=== PATIENT | male | born 1950 | race Caucasian/White ===

== ENCOUNTER → 2017-09-27 09:36 | Outpatient (CLI) | payer MEDICARE, MEDICAID, SELFPAY ==
[2017-09-27 09:57] LABS: Basophils % 0.6 % (0.1-2.0); Eosinophils # 0.3 K/mm3 (0.0-0.4); Eosinophils % 3.7 % (0.1-12.0); Hematocrit 39.6 % (42.0-52.0); Hemoglobin 12.7 g/dL (14.1-18.0); Lymphocytes # 2.5 K/mm3 (0.7-4.5); Lymphocytes % 32.8 K/mm3 (10-50); Mean Corpuscular HGB Conc 32.1 g/dL (31.8-35.4); Mean Corpuscular Hemoglobin 29.6 pg (27.0-31.2); Mean Corpuscular Volume 92.1 fl (80-94); Mean Platelet Volume 7.5 fl (7.4-10.4); Monocytes # 0.4 K/mm3 (0.1-1.0); Monocytes % 4.7 % (1.7-9.3); Neutrophils # 4.4 K/mm3 (1.8-7.8); Neutrophils % 58.1 % (37.0-80.0); Platelet Count 299 K/mm3 (142-424); White Blood Count 7.6 K/mm3 (4.8-10.8)
[2017-09-27 10:31] LABS: Hemoglobin A1C 6.4 % (0.0-7.0)
[2017-09-27 11:35] LABS: Alanine Aminotransferase 36 U/L (12-78); Albumin Level 3.7 gm/dL (3.4-5.0); Albumin/Globulin Ratio 1.1 (1.1-1.8); Alkaline Phosphatase 87 U/L (46-116); Anion Gap 13.5 mEq/L (5-15); Aspartate Amino Transferase 35 U/L (15-37); Bilirubin,Total 0.9 mg/dL (0.2-1.0); Blood Urea Nitrogen 13 mg/dL (7-18); Calcium 8.8 mg/dL (8.5-10.1); Carbon Dioxide 31 mmol/L (21.0-32.0); Chloride 105 mmol/L (98-107); Chol/HDL Ratio 3.8 (1-3.5); Cholesterol 133 mg/dL (140-200); Creatinine,Serum 0.75 mg/dL (0.70-1.30); Estimated Glomerular Filt Rate 105 ml/min (>60); GFR (African American) 126 ML/MIN (>60); Globulin 3.4 gm/dl (1.3-3.2); Glucose 138 mg/dL (74-106); HDL Cholesterol 35 mg/dL (27-67); LDL Cholesterol 62 mg/dL (0-130); Potassium 4.5 mmoL/L (3.5-5.1); Prostate Specific Ag Screen 0.2 ng/mL (0.0-4.0); Sodium 145 mmol/L (136-145); Total Protein,Serum 7.1 gm/dL (6.4-8.2); Triglycerides 179 mg/dL (30-200); VLDL Cholesterol 36 mg/dL (0-40)
== END ==
PROVIDERS: PCP Internal Medicine; Visit Provider Internal Medicine
DX: E11.59 Type 2 diabetes mellitus with other circulatory complications (principal); I25.10 Atherosclerotic heart disease of native coronary artery without angina pectoris; N40.1 Benign prostatic hyperplasia with lower urinary tract symptoms; Z12.5 Encounter for screening for malignant neoplasm of prostate; I10 Essential (primary) hypertension
CPT/HCPCS: 36415; 80053; 80061; 83036; 85025; G0103

== ENCOUNTER 2017-11-03 14:59 | Emergency (ER) | payer MEDICARE, MEDICAID, SELFPAY ==
[2017-11-03 15:21] VITALS: BP 145/82; PULSE 63; RESP 18; TEMP 36.9; O2SAT 95; BMI 35.5
[2017-11-03 15:28] VITALS: BP 145/82; PULSE 63; RESP 18; TEMP 36.9
--- NOTE | 2017-11-03 15:32 | HMH.EDUTC ---
[facility] [place]: Epistaxis Disposition: Home, Self-Care Condition on Discharge: Good Additional Instructions: Go straight to Dr Caruso office for evaluation and treatment Return if needed Follow up with family doctor as advised Follow Dr Aj orders Straight to ER if you began bleeding and not able to get it started Referrals: Narciso Maharaj [Primary Care Provider] - 3 days Rafat Caruso MD [Staff Physician] - 11/03/17 3:45 pm Time of Disposition: 15:36 Medical Decision Making - Medical Records Medical records reviewed: Yes: I reviewed the patient's medical records. - Jose Rafael Inquiry Pt receiving controlled substance: No Jose Rafael was queried for this patient: No Vital Signs: 11/03/17 15:21 11/03/17 15:28 Temperature 98.4 F 98.4 F Temperature Source Temporal Artery Scan Pulse Rate 63 Pulse Rate [Right] 63 Respiratory Rate 18 18 Blood Pressure 145/82 Blood Pressure [Right Arm] 145/82 Blood Pressure Mean [Right Arm] 103 Blood Pressure Source [Right Arm] Automatic Cuff Blood Pressure Position [Right Arm] Sitting 02 Sat by Pulse Oximetry 95 Oxygen Delivery Method Room Air - Physician Consults Physician Consulted: Dr Caruso Time: 15:41 Comment/Response: Contacted Dr Caruso office about seeking consult for evaluation of nose bleeds on and off for last week State that Dr Caruso will see patient right now to go ahead and send him [facility] for [facility]. Informed them of no active bleeding at this time and stated they had an opening to send him down Patient [place] [facility] [place] - General Stated complaint: nose bleed Time Seen by Provider: 11/03/17 15:25 Mode of Arrival: Ambulatory Source of Information: Patient Limitations: No Limitations Description of Symptoms (Recalled from Triage Doc. by RN): INTERMITTENT NOSE BLEEDS HEENT Symptoms (Recalled from RN notes): Yes Resp Symptoms (Recalled from RN notes): No Skin Symptoms (Recalled from RN notes): No MS Symptoms (Recalled from RN notes): No Functional Status (Recalled from RN notes): N - History of Present Illness Provider Complaint: Patient state that for the last week he has been having nose bleeds on and off for around the last week State that nose will bleed sporadically State that when it bleeds he has issues at time getting it to stop States that he is on Plavix and not sure if he has a sore up in there or not - Related Data Allergies Allergy/AdvReac Type Severity Reaction Status Date / Time No Known Drug Allergies Allergy Unknown Verified 11/03/17 15:27 [NKDA] - Worker's Comp Is this a Worker's Comp case?: No [facility] History I have reviewed the patient's past medical history: Yes Medical History: Reports:: Diabetes Mellitus Type 2 - Social History Alcohol Intake: never - Psychiatric History Expresses thoughts of harming self/others: None Suicide Plan Description: No Plan ROS Obtained: Yes All systems reviewed & no additional complaints - ENT Ears, Nose, Mouth, and Throat: Reports epistaxis Physical Exam - General General appearance: alert, in no apparent distress - Expanded ENT Exam Nose exam: Present: other (Dried blood noted in right nostril, no active bleeding at this time however states that last nose bleed 10 min ago) - Respiratory Respiratory exam: Present: normal lung sounds bilaterally. Absent: respiratory distress - Cardiovascular Cardiovascular exam: Present: regular rate, normal rhythm. Absent: JVD - Neurological Exam Neurological exam: Present: alert, oriented X3
--- NOTE | 2017-11-03 15:35 | ED_ITS ---
[facility] [place] Impression: Epistaxis Disposition: Home, Self-Care Condition on Discharge: Good Additional Instructions: Go straight to Dr Caruso office for evaluation and treatment Return if needed Follow up with family doctor as advised Follow Dr Aj orders Straight to ER if you began bleeding and not able to get it started Referrals: Narciso Maharaj [Primary Care Provider] - 3 days Rafat Caruso MD [Staff Physician] - 11/03/17 3:45 pm Time of Disposition: 15:36 Medical Decision Making - Medical Records Medical records reviewed: Yes: I reviewed the patient's medical records. - Jose Rafael Inquiry Pt receiving controlled substance: No Jose Rafael was queried for this patient: No Vital Signs: 11/03/17 15:21 11/03/17 15:28 Temperature 98.4 F 98.4 F Temperature Source Temporal Artery Scan Pulse Rate 63 Pulse Rate [Right] 63 Respiratory Rate 18 18 Blood Pressure 145/82 Blood Pressure [Right Arm] 145/82 Blood Pressure Mean [Right Arm] 103 Blood Pressure Source [Right Arm] Automatic Cuff Blood Pressure Position [Right Arm] Sitting 02 Sat by Pulse Oximetry 95 Oxygen Delivery Method Room Air - Physician Consults Physician Consulted: Dr Caruso Time: 15:41 Comment/Response: Contacted Dr Caruso office about seeking consult for evaluation of nose bleeds on and off for last week State that Dr Caruso will see patient right now to go ahead and send him [facility]. Informed them of no active bleeding at this time and stated they had an opening to send him down Patient escorted [place] clinic [facility] [place] - General Stated complaint: nose bleed Time Seen by Provider: 11/03/17 15:25 Mode of Arrival: Ambulatory Source of Information: Patient Limitations: No Limitations Description of Symptoms (Recalled from Triage Doc. by RN): INTERMITTENT NOSE BLEEDS HEENT Symptoms (Recalled from RN notes): Yes Resp Symptoms (Recalled from RN notes): No Skin Symptoms (Recalled from RN notes): No MS Symptoms (Recalled from RN notes): No Functional Status (Recalled from RN notes): N - History of Present Illness Provider Complaint: Patient state that for the last week he has been having nose bleeds on and off for around the last week State that nose will bleed sporadically State that when it bleeds he has issues at time getting it to stop States that he is on Plavix and not sure if he has a sore up in there or not - Related Data Allergies Allergy/AdvReac Type Severity Reaction Status Date / Time No Known Drug Allergies Allergy Unknown Verified 11/03/17 15:27 [NKDA] - Worker's Comp Is this a Worker's Comp case?: No [facility] History I have reviewed the patient's past medical history: Yes Medical History: Reports:: Diabetes Mellitus Type 2 - Social History Alcohol Intake: never - Psychiatric History Expresses thoughts of harming self/others: None Suicide Plan Description: No Plan ROS Obtained: Yes All systems reviewed & no additional complaints - ENT Ears, Nose, Mouth, and Throat: Reports epistaxis Physical Exam - General General appearance: alert, in no apparent distress - Expanded ENT Exam Nose exam: Present: other (Dried blood noted in right nostril, no active bleeding at this time however states that last nose bleed 10 min ago) - Respiratory Respiratory exam: Present: normal lung sounds bila
== END 2017-11-03 15:37 | disposition home or self-care (01) ==
PROVIDERS: Emergency Provider Nurse Practitioner; Family Provider Internal Medicine; PCP Internal Medicine
DX: R04.0 Epistaxis (principal); E11.9 Type 2 diabetes mellitus without complications
CPT/HCPCS: G0463; 99201

== ENCOUNTER → 2017-11-29 10:40 | Outpatient (CLI) | payer MEDICARE, MEDICAID, SELFPAY ==
--- NOTE | 2017-11-29 10:45 | CI_ITS ---
Cerebrovascular Exam Indications: 433.10 Occlusion/stenosis of carotid artery without cerebral infarction. IMPRESSIONS 1. The bilateral vertebral arteries are patent with normal antegrade flow. 2. Study suggests 50-69% stenosis involving the right internal carotid artery and the left internal carotid artery. No change from the study of 23-Nov-2013. History: Coronary artery disease. Risk factors: Hypertension. Diabetes mellitus. Hyperlipidemia. Carotid duplex study. Complete study and Doppler flow study including spectral analysis, color and selby scale imaging. Height: Height: 167.6cm. Height: 66in. Weight: Weight: 99.8kg. Weight: 219.5lb. Body mass index: BMI: 35.5kg/m^2. Body surface area: BSA: 2.2m^2. Location: Vascular laboratory. Patient status: Outpatient. Tables: Arterial flow: + +--------+--------+ Location V sys V ed + +--------+--------+ Right CCA - proximal 85.6cm/s 22cm/s + +--------+--------+ Right CCA - distal 87.2cm/s 19.6cm/s + +--------+--------+ Right ECA 216cm/s -------- + +--------+--------+ Right ICA - proximal 84.5cm/s 23.6cm/s + +--------+--------+ Right ICA - mid 128cm/s 33.4cm/s + +--------+--------+ Right ICA - distal 130cm/s 38.3cm/s + +--------+--------+ Right vertebral 63.8cm/s -------- + +--------+--------+ Left CCA - proximal 119cm/s 22.6cm/s + +--------+--------+ Left CCA - distal 90.4cm/s 20.6cm/s + +--------+--------+ Left ECA 95.3cm/s -------- + +--------+--------+ Left ICA - proximal 156cm/s 37.3cm/s + +--------+--------+ Left ICA - mid 127cm/s 30.4cm/s + +--------+--------+ Left ICA - distal 121cm/s 32.9cm/s + +--------+--------+ Left vertebral 77.6cm/s -------- + +--------+--------+ Velocity ratios: + + + + + + Right, V sys Right, V ed Left, V sys Left, V ed + + + + + + Max ICA/dist CCA 1.49 1.95 1.73 1.81 + + + + + + (Report amended ) Electronically signed by: Sabino Estrada [id number]
== END ==
PROVIDERS: Family Provider Internal Medicine; PCP Internal Medicine; Visit Provider Internal Medicine Cardiovascular Disease
DX: R09.89 Other specified symptoms and signs involving the circulatory and respiratory systems (principal)
CPT/HCPCS: 93880

== ENCOUNTER → 2018-03-28 09:45 | Outpatient (CLI) | payer MEDICARE, MEDICAID, SELFPAY ==
[2018-03-28 10:24] LABS: Basophils % 0.4 % (0.1-2.0); Eosinophils # 0.3 K/mm3 (0.0-0.4); Eosinophils % 4.5 % (0.1-12.0); Hematocrit 37.6 % (42.0-52.0); Hemoglobin 12.4 g/dL (14.1-18.0); Lymphocytes # 1.9 K/mm3 (0.7-4.5); Lymphocytes % 29.5 K/mm3 (10-50); Mean Corpuscular HGB Conc 32.9 g/dL (31.8-35.4); Mean Corpuscular Hemoglobin 29.7 pg (27.0-31.2); Mean Corpuscular Volume 90.4 fl (80-94); Mean Platelet Volume 7.1 fl (7.4-10.4); Monocytes # 0.4 K/mm3 (0.1-1.0); Monocytes % 5.9 % (1.7-9.3); Neutrophils # 3.8 K/mm3 (1.8-7.8); Neutrophils % 59.8 % (37.0-80.0); Platelet Count 270 K/mm3 (142-424); Red Blood Count 4.16 M/mm3 (4.60-6.20); Red Cell Distribution Width 13.9 % (11.5-17.5); White Blood Count 6.3 K/mm3 (4.8-10.8)
[2018-03-28 10:36] LABS: Hemoglobin A1C 6.6 % (0.0-7.0)
[2018-03-28 12:58] LABS: Alanine Aminotransferase 35 U/L (12-78); Albumin Level 4.2 gm/dL (3.4-5.0); Albumin/Globulin Ratio 1.2 (1.1-1.8); Alkaline Phosphatase 103 U/L (46-116); Anion Gap 9.6 mEq/L (5-15); Aspartate Amino Transferase 42 U/L (15-37); Blood Urea Nitrogen 11 mg/dL (7-18); Calcium 8.8 mg/dL (8.5-10.1); Carbon Dioxide 28 mmol/L (21.0-32.0); Chloride 104 mmol/L (98-107); Chol/HDL Ratio 3.8 (1-3.5); Cholesterol 139 mg/dL (140-200); Creatinine,Serum 0.81 mg/dL (0.70-1.30); Estimated Glomerular Filt Rate 95 ml/min (>60); GFR (African American) 115 ML/MIN (>60); Globulin 3.6 gm/dl (1.3-3.2); Glucose 156 mg/dL (74-106); HDL Cholesterol 37 mg/dL (27-67); LDL Cholesterol 74 mg/dL (0-130); Potassium 3.6 mmoL/L (3.5-5.1); Sodium 138 mmol/L (136-145); Total Protein,Serum 7.8 gm/dL (6.4-8.2); Triglycerides 142 mg/dL (30-200); VLDL Cholesterol 28 mg/dL (0-40)
[2018-03-30 06:52] LABS: Microalbumin, Urine <3.0 ug/mL (Not Estab.)
== END ==
PROVIDERS: Visit Provider Internal Medicine
DX: E11.59 Type 2 diabetes mellitus with other circulatory complications (principal); I25.10 Atherosclerotic heart disease of native coronary artery without angina pectoris; I10 Essential (primary) hypertension; E78.5 Hyperlipidemia, unspecified
CPT/HCPCS: 36415; 80053; 80061; 82043; 83036; 85025

== ENCOUNTER 2018-07-17 09:28 | Outpatient (RCR) | payer MEDICARE, MEDICAID, SELFPAY ==
--- NOTE | 2018-07-17 11:50 | HMH.OTOPEV ---
OT Inpatient Evaluation Rehab OT Outpatient Eval Start: 07/17/18 11:36 Freq: Status: Active Protocol: Document 07/17/18 11:37 [id number] (Rec: 07/17/18 11:49 [id number] Electronically Signed By Anya Carlin OT 07/17/18 11:37 Outpatient Therapy Subjective History Subjective History Pt is a 67 year old male who reports to therapy for initial evaluation to right elbow. Pt reports his pain started ~2 months ago. Pt does not recall a specific injury to right elbow causing the pain. However, 3 days prior to pain beginning he was helping his ex- move and did some heavy lifting. Pt feels he cannot push or pull and has lost strength on the right side. Pt is right hand dominant. Pt's pain originates in the right elbow (anterior/medial side), but does refer up to the shoulder at times. Pt demonstrates with decreased AROM and strength at right elbow. Pt will continue to be seen twice a week in order to address these deficits. Chief Complaint Pain Stiff Weakness Symptom Type Ache Throb Sharp Dull Shooting Symptoms Relieved By Nothing Symptoms Aggravated By Physical Activity Twisting Lifting Prior Functional Limitations None Current Functional Limitations Reaching Lifting Housework Driving Sleeping Symptom Description Constant and Continuous Level of pain today (0-10) 3 Pain scale - at its best (0-10) 2 Pain scale - at its worst (0-10) 6 Shoulder/Elbow Eval Shoulder Objective Measurements Elbow Objective Measurements Elbow ROM Right full ROM elbow exam standard left decreased ROM elbow exam standard right pain with active ROM elbow exam standard right pain with passive ROM elbow exam right standard
== END 2018-07-17 09:40 | disposition home or self-care (01) ==
LOC: OT 09:28
PROVIDERS: Visit Provider Orthopaedic Surgery
DX: M79.631 Pain in right forearm (principal)
CPT/HCPCS: 97166

== ENCOUNTER → 2019-03-16 10:03 | Outpatient (CLI) | payer MEDICARE, MEDICAID, SELFPAY ==
--- NOTE | 2019-03-16 10:23 | XR_ITS ---
XR toe RT min 2V CLINICAL INDICATION: ITS.REASON: RT GREAT TOE PAIN ORDERING PHYSICIAN: Narciso Maharaj PATIENT AGE: 68 years Comparison: None FINDINGS: There is generalized mild osteopenia. Joint spaces and alignment are normal. There is no acute fracture, cortical destruction or periosteal reaction. Soft tissues are unremarkable. Impression: Osteopenia. No acute process.
[2019-03-16 11:08] LABS: Basophils % 0.3 % (0.1-2.0); Eosinophils # 0.2 K/mm3 (0.0-0.4); Eosinophils % 3.7 % (0.1-12.0); Hematocrit 36.8 % (42.0-52.0); Hemoglobin 11.7 g/dL (14.1-18.0); Lymphocytes # 1.9 K/mm3 (0.7-4.5); Lymphocytes % 28.6 % (10-50); Mean Corpuscular HGB Conc 31.9 g/dL (31.8-35.4); Mean Corpuscular Hemoglobin 28.9 pg (27.0-31.2); Mean Corpuscular Volume 90.6 fl (80-94); Mean Platelet Volume 7.8 fl (7.4-10.4); Monocytes # 0.4 K/mm3 (0.1-1.0); Monocytes % 5.3 % (1.7-9.3); Neutrophils # 4.2 K/mm3 (1.8-7.8); Neutrophils % 62.2 % (37.0-80.0); Platelet Count 235 K/mm3 (142-424); Red Blood Count 4.06 M/mm3 (4.60-6.20); Red Cell Distribution Width 13.6 % (11.5-17.5); White Blood Count 6.7 K/mm3 (4.8-10.8)
[2019-03-16 12:09] LABS: Alanine Aminotransferase 38 U/L (12-78); Albumin Level 3.4 gm/dL (3.4-5.0); Alkaline Phosphatase 87 U/L (46-116); Anion Gap 13.9 mEq/L (5-15); Aspartate Amino Transferase 43 U/L (15-37); Bilirubin,Total 1.2 mg/dL (0.2-1.0); Blood Urea Nitrogen 10 mg/dL (7-18); Calcium 8.4 mg/dL (8.5-10.1); Carbon Dioxide 26 mmol/L (21.0-32.0); Chloride 103 mmol/L (98-107); Chol/HDL Ratio 3.9 (1-3.5); Cholesterol 124 mg/dL (140-200); Creatinine,Serum 0.86 mg/dL (0.70-1.30); Estimated Glomerular Filt Rate 89 ml/min (>60); GFR (African American) 107 ML/MIN (>60); Globulin 3.3 gm/dl (1.3-3.2); Glucose 157 mg/dL (74-106); HDL Cholesterol 32 mg/dL (27-67); LDL Cholesterol 60 mg/dL (0-130); Potassium 3.9 mmoL/L (3.5-5.1); Prostate Specific Ag Screen 0.2 ng/mL (0.0-4.0); Sodium 139 mmol/L (136-145); Total Protein,Serum 6.7 gm/dL (6.4-8.2); Triglycerides 161 mg/dL (30-200); VLDL Cholesterol 32 mg/dL (0-40)
[2019-03-16 12:52] LABS: Hemoglobin A1C 6.6 % (0.0-7.0)
== END ==
PROVIDERS: Visit Provider Internal Medicine
DX: Z12.5 Encounter for screening for malignant neoplasm of prostate (principal); G35 Multiple sclerosis; E11.59 Type 2 diabetes mellitus with other circulatory complications; I10 Essential (primary) hypertension; I25.10 Atherosclerotic heart disease of native coronary artery without angina pectoris; Z79.84 Long term (current) use of oral hypoglycemic drugs; Z87.891 Personal history of nicotine dependence
CPT/HCPCS: 36415; 73660; 80053; 80061; 83036; 85025; G0103

== ENCOUNTER → 2019-05-25 15:51 | Outpatient (CLI) | payer MEDICARE, MEDICAID, SELFPAY ==
--- NOTE | 2019-05-25 15:59 | CT_ITS ---
PROCEDURE: CT HEAD/BRAIN WO CON CLINICAL INDICATION: NEW ONSET SEVERE RT SIDE HEADACHE,R/O HEMMORRHAGE OR CVA COMPARISON: HEADWO CT head/brain wo con from 10/29/2018 TECHNIQUE: Axial images obtained with sagittal and coronal reformats. All CT scans at the facility use one or more dose reduction, viz: automated exposure control, ma/kV adjustment per patient size (including targeted exams where dose is matched to indication, i.e. head), or iterative reconstruction technique. FINDINGS: No midline shift, mass effect, intracranial hemorrhage, hydrocephalus, or extra-axial fluid collection is evident. There is generalized mild prominence of the sulci which are slightly more prominent in the cerebellar hemispheres. There are no areas of abnormal attenuation. The calvarium has an unremarkable appearance. No mastoid effusion. No sinus air-fluid level. IMPRESSION: No acute intracranial process. Global mild cortical atrophy somewhat greater in the cerebellar hemispheres. Although nonspecific this can occur with chronic Dilantin therapy or alcohol use. Dictated by: Moiz Kidd 05/25/2019 16:20 Electronically signed by Moiz Kidd in [place] 05/25/2019 16:20
== END ==
PROVIDERS: PCP Internal Medicine; Visit Provider Internal Medicine
DX: G44.52 New daily persistent headache (NDPH) (principal)
CPT/HCPCS: 70450

== ENCOUNTER → 2019-10-30 11:27 | Outpatient (CLI) | payer MEDICARE, OTHER, SELFPAY ==
[2019-10-30 12:10] LABS: Basophils % 0.3 % (0.1-2.0); Eosinophils # 0.5 K/mm3 (0.0-0.4); Eosinophils % 8.1 % (0.1-12.0); Hematocrit 36.8 % (42.0-52.0); Hemoglobin 11.8 g/dL (14.1-18.0); Lymphocytes # 1.6 K/mm3 (0.7-4.5); Lymphocytes % 24.2 % (10-50); Mean Corpuscular HGB Conc 31.9 g/dL (31.8-35.4); Mean Corpuscular Hemoglobin 29.6 pg (27.0-31.2); Mean Corpuscular Volume 92.8 fl (80-94); Mean Platelet Volume 8.2 fl (7.4-10.4); Monocytes # 0.3 K/mm3 (0.1-1.0); Neutrophils % 62.5 % (37.0-80.0); Platelet Count 294 K/mm3 (142-424); Red Blood Count 3.97 M/mm3 (4.60-6.20); Red Cell Distribution Width 14.1 % (11.5-17.5); White Blood Count 6.4 K/mm3 (4.8-10.8)
[2019-10-30 13:56] LABS: Alanine Aminotransferase 24 U/L (12-78); Albumin Level 4.4 g/dl (3.5-5.0); Albumin/Globulin Ratio 1.6 (1.1-1.8); Alkaline Phosphatase 77 U/L (38-126); Anion Gap 18.5 mEq/L (5-15); Aspartate Amino Transferase 55 U/L (17-59); Bilirubin,Total 1.1 mg/dl (0.2-1.3); Blood Urea Nitrogen 13 mg/dl (9-20); Calcium 9.3 mg/dl (8.4-10.2); Carbon Dioxide 27 mmol/L (22.0-30.0); Chloride 100 mmol/L (98-107); Cholesterol 136 mg/dl (140-200); Estimated Glomerular Filt Rate 134 ml/min (>60); GFR (African American) 163 ML/MIN (>60); Globulin 2.7 g/dL (1.3-3.2); Glucose 157 mg/dl (74-100); HDL Cholesterol 34 mg/dl (40-60); Potassium 4.5 mmoL/L (3.5-5.1); Sodium 141 mmol/L (136-145); Total Protein,Serum 7.1 g/dl (6.3-8.2); Triglycerides 202 mg/dl (30-150); VLDL Cholesterol 40 mg/dL (0-40)
[2019-10-30 14:07] LABS: Direct LDL Cholesterol 78.58 mg/dL (100-129)
[2019-10-31 16:10] LABS: Microalbumin, Urine 6.3 ug/mL (Not Estab.)
== END ==
PROVIDERS: Visit Provider Internal Medicine
DX: I50.32 Chronic diastolic (congestive) heart failure (principal); I25.10 Atherosclerotic heart disease of native coronary artery without angina pectoris; E11.59 Type 2 diabetes mellitus with other circulatory complications; Z79.84 Long term (current) use of oral hypoglycemic drugs; Z87.891 Personal history of nicotine dependence
CPT/HCPCS: 36415; 80053; 80061; 82043; 83036; 85025

== ENCOUNTER 2023-08-26 11:04 | Emergency (ER) | payer MEDICARE, BC, SELFPAY ==
--- NOTE | 2023-08-26 11:28 | ED_ITS ---
Discharge Plan Disposition Patient Disposition: Home, Self-Care Condition: Good Prescriptions Prescriptions: New azithromycin [Zithromax] 250 mg tablet 250 mg PO UD DOSE PK Qty: 6 0RF Rx Instructions: Take two (2) tablets today, then one (1) tablet days #2 thru #5 benzonatate [benzonatate] 100 mg capsule 100 mg PO TIDP PRN (Reason: Cough) Qty: 30 0RF guaifenesin [Mucinex] 600 mg tablet extended release 12hr 600 - 1,200 mg PO BIDP PRN (Reason: Congestion) Qty: 30 0RF No Action meclizine 25 mg tablet 25 mg PO DAILY 30 Days Qty: 90 Patient Comments: gabapentin 800 mg tablet 800 mg PO BID 30 Days Qty: 90 Patient Comments: carvedilol 12.5 mg tablet 12.5 mg PO BID 90 Days Qty: 180 Patient Comments: atorvastatin 80 mg tablet 80 mg PO DAILY 90 Days Qty: 90 Patient Comments: losartan 25 mg tablet 25 mg PO DAILY 90 Days Qty: 90 Patient Comments: glimepiride 1 mg tablet 1 mg PO DAILY 90 Days Qty: 90 Patient Comments: pantoprazole 40 mg tablet,delayed release (DR/EC) 40 mg PO DAILY 90 Days Qty: 90 Patient Comments: take 1 tablet by mouth once daily clopidogrel 75 mg tablet 75 mg PO DAILY 90 Days Qty: 90 Patient Comments: take 1 tablet by mouth once daily acetaminophen-codeine 300-15 mg tablet 1 tab PO Q4-6H PRN Suprep Bowel Prep Kit 17.5-3.13-1.6 gram recon soln 177 ml PO DAILY 0 Days Qty: 354 0RF Rx Instructions: drink entire amount PM before + AM of procedure, 10-12 hr apart furosemide 40 MG tablet 40 mg PO BID aspirin 325 MG tablet 325 mg PO DAILY Referrals Follow up/Referrals: Provider,Referral, MD [Primary Care Provider] - See instructions Activity Restrictions/Add. Instructions Additional Instructions/Restrictions: Take tylenol pain or fever. Take the medications as directed. Follow up with your regular doctor. GO TO THE ER FOR ANY WORSENING SYMPTOMS Clinical Impressions Clinical Impression: Sinusitis, Bronchitis, Acute viral syndrome Instructions Patient Instructions: Sinusitis, DI for Sinusitis Discharge ED Provider: Tex Arce [facility] General Stated complaint: cough, congestion Time Seen by Provider: 08/26/23 11:28 History of Present Illness Provider Complaint: He states that for the past 3 days he has sinus congestion, chest congestion, and he has felt bad. He denies fever/chills. Related Data Home Medications Medication Instructions Recorded Confirmed atorvastatin 80 mg tablet 80 mg PO DAILY High cholesterol 90 11/03/17 01/08/19 days ##90 carvedilol 12.5 mg tablet 12.5 mg PO BID Heartburn 90 days 11/03/17 01/08/19 ##180 clopidogrel 75 mg tablet 75 mg PO DAILY Blood thinner 90 11/03/17 01/08/19 days ##90 gabapentin 800 mg tablet 800 mg PO BID Pain 30 days ##90 11/03/17 01/08/19 glimepiride 1 mg tablet 1 mg PO DAILY Diabetes 90 days ##90 11/03/17 01/08/19 losartan 25 mg tablet 25 mg PO DAILY . 90 days ##90 11/03/17 01/08/19 meclizine 25 mg tablet 25 mg PO DAILY dizziness 30 days 11/03/17 01/08/19 ##90 pantoprazole 40 mg tablet,delayed 40 mg PO DAILY GERD 90 days ##90 11/03/17 01/08/19 release aspirin 325 mg tablet 325 mg PO DAILY . 03/01/18 01/08/19 furosemide 40 mg tablet 40 mg PO BID . 03/01/18 01/08/19 acetaminophen 300 mg-codeine 15 mg 1 tab PO Q4-6H PRN 07/10/18 01/08/19 tablet Previous Rx's Medication Instructions Recorded sodium,potassium,mag sulfates 17.5 177 ml PO DAILY 2 doses #354 mL 01/08/19 gram-3.13 gram-1.6 gram oral soln (Suprep Bowel Prep Kit) azithromycin 250 mg tablet 250 mg PO UD DOSE PK #6 tabs 08/26/23 (Zithromax) benzonatate 100 mg capsule 100 mg PO TIDP PRN Cough #30 caps 08/26/23 guaifenesin 600 mg tablet, 600 - 1,200 mg PO BIDP PRN 08/26/23 extended release 12 hr (Mucinex) Congestion #30 tabs Allergies Allergy/AdvReac Type Severity Reaction Status Date / Time No Known Drug Allergies Allergy Unknown Verified 01/08/19 13:56 [NKDA] PFSH PFSH Disclaimer: The information contained in this section may have been updated after the patient was seen, as this information can be updated by other users. Social History Smoking Status: Former smoker alcohol intake: former current occupational status: disabled Travel in the last 8 weeks: None household members: spouse housing: house current occupational exposures/hazards: No ROS Obtained: Yes All systems reviewed & no additional complaints except as documented Constitutional Constitutional: Reports chills, Denies fever(s) and Reports poor appetite Eyes Eyes: Reports system reviewed and no additional complaints, except as documented ENT Ears, Nose, Mouth, and Throat: Reports as per HPI Cardiovascular Cardiovascular: Reports system reviewed and no additional complaints, except as documented and Denies chest pain Respiratory Respiratory: Denies shortness of breath, Denies chest congestion, Reports cough, Denies stridor and Denies wheezing Gastrointestinal Gastrointestingal: Reports system reviewed and no additional complaints, except as documented; Denies abdominal pain, diarrhea or vomiting Musculoskeletal Musculoskeletal: Reports system reviewed and no additional complaints, except as documented and Denies arthralgias Integumentary/Breasts Skin/Breast: Reports system reviewed and no additional complaints, except as documented and Denies rash Neurologic Neurologic: Denies paresthesias Allergic/Immunologic Allergic/Immunologic: Denies wheezing Physical Exam General General appearance: alert and in no apparent distress Eye Eye exam: Present normal appearance, PERRL and EOMI ENT ENT exam: Present mucous membranes moist and normal external ear exam Expanded ENT Exam External ear exam: Present normal external inspection TM/Canal exam: Bilateral TM: erythema and bulging Nose exam: Absent sinus tenderness Nasal speculum exam: Bilateral: normal Mouth exam: Present normal external inspection; Absent drooling Teeth exam: Present normal inspection Throat exam: Present tonsillar erythema and tonsillomegaly Neck Neck exam: Present normal inspection, full ROM and trachea midline; Absent tenderness, lymphadenopathy or thyromegaly Chest Chest inspection: Present normal inspection and symmetric chest wall rise; Absent tenderness or rash Respiratory Respiratory exam: Present normal lung sounds bilaterally; Absent respiratory distress, wheezes, stridor or accessory muscle use Cardiovascular Cardiovascular exam: Present regular rate, normal rhythm and normal heart sounds Abdominal Exam Abdominal exam: Present soft; Absent distention, tenderness, guarding, rebound or rigidity Extremities Exam Extremities exam: Present normal inspection, full ROM and normal capillary refill; Absent tenderness or calf tenderness Back Exam Back exam: Present normal inspection and full ROM; Absent tenderness Neurological Exam Neurological exam: Present alert and oriented X3 Psychiatric Psychiatric exam: Present normal affect and normal mood Skin Skin exam: Present warm, dry, intact and normal color Lymphatic Lymphatic Findings: no adenopathy Medical Decision Making Medical Records Medical records reviewed: No I reviewed the patient's medical records. Jose Rafael Inquiry Pt receiving controlled substance: No Lab Data Lab results reviewed: Yes I reviewed the patient's lab results.
[2023-08-26 11:30] VITALS: BP 108/70; PULSE 82; RESP 19; TEMP 36.6; O2SAT 96; BMI 25.0
--- NOTE | 2023-08-26 11:35 | XR_ITS ---
FINAL REPORT CLINICAL HISTORY: CONGESTION COMPARISON: 10/29/2018 FINDINGS: Two views of the chest were obtained. The patient has undergone a prior median sternotomy. The heart size and pulmonary vascularity are within normal limits. The mediastinum is normal. No acute pulmonary abnormality is identified. There is no pneumothorax. There is moderate degenerative change of the thoracic spine. IMPRESSION: No active cardiopulmonary disease. Reviewed, Interpreted and Dictated by Kirt Prasad III, MD Transcribed by Gilda Gonzalez Authenticated and [facility]
[2023-08-26 12:05] VITALS: BP 108/70; PULSE 82; RESP 19; TEMP 36.6; O2SAT 96
[2023-08-26 12:54] LABS: Adenovirus,PCR Not Detected (NotDetected); Bordetella Pertussis Not Detected (NotDetected); Chlamydophila Pneumoniae, PCR Not Detected (NotDetected); Coronavirus 19, PCR Not Detected (NotDetected); Coronavirus 229E Not Detected (NotDetected); Coronavirus NL63 Not Detected (NotDetected); Coronavirus OC43 Not Detected (NotDetected); Coronovirus HKU1,PCR Not Detected (NotDetected); Human Metapneumovirus Not Detected (NotDetected); Influenza A, PCR Not Detected (NotDetected); Influenza AH1, 2009 Not Detected (NotDetected); Influenza AH1, PCR Not Detected (NotDetected); Influenza AH3,PCR Not Detected (NotDetected); Influenza B, PCR Not Detected (NotDetected); Mycoplasma Pneumoniae, PCR Not Detected (NotDetected); Parainfluenza 1, PCR Not Detected (NotDetected); Parainfluenza 2, PCR Not Detected (NotDetected); Parainfluenza 3, PCR Not Detected (NotDetected); Parainfluenza 4, PCR Not Detected (NotDetected); Respiratory Syncytial Virus Not Detected (NotDetected); Rhinovirus/Enterovirus Not Detected (NotDetected)
== END 2023-08-26 12:28 | disposition home or self-care (01) ==
PROVIDERS: Emergency Provider Nurse Practitioner Family
DX: J20.9 Acute bronchitis, unspecified (principal); J01.90 Acute sinusitis, unspecified; R06.02 Shortness of breath; R05.9 Cough, unspecified; R09.81 Nasal congestion; R09.89 Other specified symptoms and signs involving the circulatory and respiratory systems; R53.81 Other malaise; Z87.891 Personal history of nicotine dependence
CPT/HCPCS: 71046; 87581; 87632; 87635; 87798; 99204; 99212; G0463

== ENCOUNTER 2023-11-17 00:49 | Observation (INO) | payer MEDICARE, SELFPAY ==
[2023-11-17] VITALS (23 sets, daily range): BP systolic 101–182; BP diastolic 53–87; PULSE 59–78; RESP 14–20; TEMP 36.5–36.8; O2SAT 98–100; BMI 28.2; BMI 21.5; BMI 21.4
--- NOTE | 2023-11-17 00:58 | XR_ITS ---
PROCEDURE INFORMATION: Exam: XR Chest Exam date and time: 11/17/2023 1:20 AM Age: 72 years old Clinical indication: Shortness of breath; Additional info: SOA TECHNIQUE: Imaging protocol: Radiologic exam of the chest. Views: 1 view. COMPARISON: CR XR CHEST 2V 08/26/2023 11:48 AM FINDINGS: Lungs: Unremarkable. No consolidation. Pleural spaces: Unremarkable. No pleural effusion. No pneumothorax. Heart/Mediastinum: Evidence of prior CABG. Vasculature: Unremarkable. Bones/joints: There is a mild scoliosis of the midthoracic spine convex right. IMPRESSION: No acute findings.
--- NOTE | 2023-11-17 01:03 | HMH.EDGENADL ---
Discharge Plan Disposition Patient Disposition: Admitted Condition: Serious Chief Complaint: Weakness Prescriptions Prescriptions: No Action meclizine 25 mg tablet 25 mg PO DAILY 30 Days Qty: 90 Patient Comments: gabapentin 800 mg tablet 800 mg PO BID 30 Days Qty: 90 Patient Comments: carvedilol 12.5 mg tablet 12.5 mg PO BID 90 Days Qty: 180 Patient Comments: atorvastatin 80 mg tablet 80 mg PO DAILY 90 Days Qty: 90 Patient Comments: losartan 25 mg tablet 25 mg PO DAILY 90 Days Qty: 90 Patient Comments: glimepiride 1 mg tablet 1 mg PO DAILY 90 Days Qty: 90 Patient Comments: pantoprazole 40 mg tablet,delayed release (DR/EC) 40 mg PO DAILY 90 Days Qty: 90 Patient Comments: take 1 tablet by mouth once daily clopidogrel 75 mg tablet 75 mg PO DAILY 90 Days Qty: 90 Patient Comments: take 1 tablet by mouth once daily acetaminophen-codeine 300-15 mg tablet 1 tab PO Q4-6H PRN Suprep Bowel Prep Kit 17.5-3.13-1.6 gram recon soln 177 ml PO DAILY 0 Days Qty: 354 0RF Rx Instructions: drink entire amount PM before + AM of procedure, 10-12 hr apart azithromycin [Zithromax] 250 mg tablet 250 mg PO UD DOSE PK Qty: 6 0RF Rx Instructions: Take two (2) tablets today, then one (1) tablet days #2 thru #5 benzonatate [benzonatate] 100 mg capsule 100 mg PO TIDP PRN (Reason: Cough) Qty: 30 0RF guaifenesin [Mucinex] 600 mg tablet extended release 12hr 600 - 1,200 mg PO BIDP PRN (Reason: Congestion) Qty: 30 0RF furosemide 40 MG tablet 40 mg PO BID aspirin 325 MG tablet 325 mg PO DAILY Referrals Follow up/Referrals: Provider,Referral, MD [Primary Care Provider] - See instructions Clinical Impressions Clinical Impression: RALF (iron deficiency anemia) Discharge ED Provider: Reina Narvaez General Adult HPI General Chief complaint: Weakness Stated complaint: soa Time Seen by Provider: 11/17/23 00:48 Mode of Arrival: EMS Source of Information: Patient Limitations: Altered Mental Status Description of Symptoms (Recalled from ER Triage Doc. by RN): Patient presented to the ED with c/o weakness. He states that he could barely get out of his chair when he called EMS. Patient is seeing a provider at [facility] for anemia and had labs from 11/14 that show a H/H of 6.8/24.1. Patient was called to be admitted at [facility] but refused, and then was set up to have blood transfusion at [facility] yesterday but did not show up. He stated his phone was not working and he lives alone. History of Present Illness HPI narrative: 72-year-old male with previous medical history of iron deficiency anemia attributed to hemorrhoids presents with acute on chronic weakness and shortness of breath on exertion. 2 days ago patient was evaluated by his primary care physician and there had a hemoglobin of 6.8. This has been trended for some time and he is known to have chronic iron deficiency anemia. He is intolerant of oral iron due to constipation so was advised to come to this hospital for admission for IV iron infusion. He was planning to come in in the morning however tonight as he was packing his suitcase he felt too weak so called EMS. He also reports that ambulating around his home he has had shortness of breath and occasional chest pain. No known fevers. He denies any dark or bloody stools from the past week. He does not think his hemorrhoids are acutely inflamed. He reports occasional epistaxis but none in the last month. No other known sources of bleeding. No anticoagulant use Related Data Home Medications Medication Instructions Recorded Confirmed atorvastatin 80 mg tablet 80 mg PO DAILY High cholesterol 11/03/17 01/08/19 days ##90 carvedilol 12.5 mg tablet 12.5 mg PO BID Heartburn 90 days 11/03/17 01/08/19 ##180 clopidogrel 75 mg tablet 75 mg PO DAILY Blood thinner 11/03/17 01/08/19 days ##90 gabapentin 800 mg tablet 800 mg PO BID Pain 30 days ##90 11/03/17 01/08/19 glimepiride 1 mg tablet 1 mg PO DAILY Diabetes 90 days ##90 11/03/17 01/08/19 losartan 25 mg tablet 25 mg PO DAILY . 90 days ##90 11/03/17 01/08/19 meclizine 25 mg tablet 25 mg PO DAILY dizziness 30 days 11/03/17 01/08/19 ##90 pantoprazole 40 mg tablet,delayed 40 mg PO DAILY GERD 90 days ##90 03/15/18 05/20/19 release aspirin 325 mg tablet 325 mg PO DAILY . 03/01/18 01/08/19 furosemide 40 mg tablet 40 mg PO BID . 03/01/18 01/08/19 acetaminophen 300 mg-codeine 15 mg 1 tab PO Q4-6H PRN 07/10/18 01/08/19 tablet Previous Rx's Medication Instructions Recorded sodium,potassium,mag sulfates 17.5 177 ml PO DAILY 2 doses #354 mL 01/08/19 gram-3.13 gram-1.6 gram oral soln (Suprep Bowel Prep Kit) azithromycin 250 mg tablet 250 mg PO UD DOSE PK #6 tabs 08/26/23 (Zithromax) benzonatate 100 mg capsule 100 mg PO TIDP PRN Cough #30 caps 08/26/23 guaifenesin 600 mg tablet, 600 - 1,200 mg (1 - 2 x 600 mg) PO 08/26/23 extended release 12 hr (Mucinex) BIDP PRN Congestion #30 tabs Allergies Allergy/AdvReac Type Severity Reaction Status Date / Time No Known Drug Allergies Allergy Unknown Verified 01/08/19 13:56 [NKDA] [facility] Disclaimer: The information contained in this section may have been updated after the patient was seen, as this information can be updated by other users. Social History Smoking Status: Never smoker alcohol intake: former current occupational status: disabled Travel in the last 8 weeks: None household members: spouse housing: house current occupational exposures/hazards: No ROS Obtained: Yes All systems reviewed & no additional complaints except as documented Physical Exam General General appearance: alert, in no apparent distress and other (Extremely pale. Short of breath at rest.) Head Head exam: atraumatic, normocephalic and normal inspection Eye Eye exam: Present normal appearance, PERRL and EOMI ENT ENT exam: Present normal exam, normal oropharynx, mucous membranes moist, TM's normal bilaterally and normal external ear exam Neck Neck exam: Present normal inspection, full ROM and trachea midline; Absent meningismus or lymphadenopathy Chest Chest inspection: Present normal inspection and symmetric chest wall rise; Absent tenderness Respiratory Respiratory exam: Present normal lung sounds bilaterally and other (mildly tachypneic); Absent respiratory distress, wheezes or stridor Cardiovascular Cardiovascular exam: Present regular rate and normal rhythm; Absent JVD Abdominal Exam Abdominal exam: Present soft and normal bowel sounds; Absent distention, tenderness or guarding Extremities Exam Extremities exam: Present normal inspection and full ROM; Absent calf tenderness Back Exam Back exam: Present normal inspection; Absent tenderness Neurological Exam Neurological exam: Present alert and oriented X3 Psychiatric Psychiatric exam: Present normal affect and normal mood Skin Skin exam: Present dry, intact and pallor; Absent cyanosis Lymphatic Lymphatic Findings: no adenopathy Medical Decision Making Jose Rafael Inquiry Pt receiving controlled substance: No Vital Signs: 11/17/23 00:47 Temperature 97.8 F Temperature Source Axillary Pulse Rate [Right Brachial] 68 Respiratory Rate 20 Blood Pressure [Right Arm] 125/53 L Blood Pressure Mean [Right Arm] 77 02 Sat by Pulse Oximetry 99 Oxygen Delivery Method Nasal Cannula Oxygen Flow Rate (LPM) 2 Lab Data Lab Results 11/17/23 00:50: WBC 6.6, RBC 2.85 L, Hgb 6.7 L*, Hct 23.4 L, MCV 82.0, MCH 23.4 L, MCHC 28.5 L, RDW 16.3, Plt Count 285, MPV 8.7, Neut % (Auto) 68.6, Lymph % (Auto) 22.9, [place] % (Auto) 4.9, Eos % (Auto) 3.2, Baso % (Auto) 0.4, Neut # (Auto) 4.6, Lymph # (Auto) 1.5, [place] # (Auto) 0.3, Eos # (Auto) 0.2, Baso # (Auto) 0.0, PT 11.4, INR 1.06, APTT 25.8, Sodium 136, Potassium 3.1 L, Chloride 104, Carbon Dioxide 27, Anion Gap 8.1, BUN 7 L, Creatinine 0.60 L, Estimated Creat Clear 65, Estimated GFR 133, Est GFR ( Amer) 161, Glucose 149 H, Calcium 8.3 L, Phosphorus 3.1, Magnesium 1.8, Total Bilirubin 1.5 H, AST 42, ALT 14, Alkaline Phosphatase 83, Troponin I < 0.01, Total Protein 6.4, Albumin 3.8, Globulin 2.6, Albumin/Globulin Ratio 1.5 11/17/23 00:50 11/17/23 00:50 Orders (Tests/Meds): ED MEDICATIONS Generic Name Dose Route Start Last Admin Trade Name Freshana PRN Reason Stop Dose Admin Sodium Chloride 250 mls @ 25 mls/hr 11/17/23 01:30 Sod Chlor 0.9% 250ml Bag IV 11/18/23 01:29 .Q10H JAJA Sodium Chloride 10 ml 11/17/23 00:50 Sodium Chloride 0.9% 10ml Flush Syringe IV 12/17/23 00:49 NEEDED PRN Maintain IV Site ORDERS Category Date Time Status Red Blood Cells Stat BBK 11/17/23 01:00 Received Type and Screen Stat BBK 11/17/23 01:00 Received CXR --portable [XR chest portable] Stat Exams 11/17/23 00:58 Taken CMP [Comprehensive Metabolic Panel] Stat Lab 11/17/23 00:50 Completed Complete Blood Count Auto Diff Stat Lab 11/17/23 00:50 Completed Magnesium Stat Lab 11/17/23 00:50 Completed PT/INR [Prothrombin Time INR] Stat Lab 11/17/23 00:50 Completed PTT [Activated Partial Thrombo Time] Stat Lab 11/17/23 00:50 Completed Phosphorous Stat Lab 11/17/23 00:50 Completed Troponin I Q3H Lab 11/17/23 04:00 Ordered Troponin I Q3H Lab 11/17/23 07:00 Ordered Troponin I Stat Lab 11/17/23 00:50 Completed ECG Data Tracing #1: I reviewed this ECG and interpreted as documented below: ECG initial impression date: 11/17/23 ECG initial impression time: 01:34 ECG normal with no acute: arrhythmias, ischemia, conduction abnormalities, chamber hypertrophy Normal Sinus Rhythm: Yes Conduction abnormalities present: QT prolongation Medical Decision Narrative: 72-year-old male with previous medical history of iron deficiency anemia currently on no treatment attributed to hemorrhoids, presenting with acute on chronic weakness and shortness of breath and pallor on exam. Considered multiple causes for patient's presentation including anemia, ACS, pneumonia, arrhythmia, viral syndrome, among others. For this reason obtained EKG, chest x-ray, CBC, CMP, troponin, magnesium and phosphorus. Also obtain type and screen anticipating patient will need transfusion given his hemoglobin 3 days ago was 6.8 and he is currently not on treatment. However his vitals are currently hemodynamically stable. Iron studies not repeated because patient just had these done recently with his primary care provider and labs have been received from outside provider and are in the paper chart. Reviewed labs from recent office visit and 11/04/2023 iron was low at 16, iron saturation was low at 4, ferritin was low at 6, total iron binding capacity was 396. Also at that time white blood cells were 7.2, hemoglobin 7.2, MCV 82. At this time EKG was normal sinus rhythm without ST segment elevation myocardial infarction. labs independently reviewed and interpreted are significant for hemoglobin of 6.7, normocytic anemia. Chest x-ray independently reviewed and interpreted showed no focal consolidations or significant abnormalities to explain his shortness of breath. Ordered 2 units of red blood cells for transfusion and consulted hospital medicine who agreed to admit the patient. He remained stable until time of admission. Critical Care Critical Care Time Critical Care Time: Yes Attestation: On 11/17/23, the high probability of a clinically significant, sudden or life threatening deterioration of the following system(s) required my full and direct attention, intervention and personal management. The time I documented below is in addition to time spent performing reported procedures but includes the following listed in this critical care notation. Total Time Total Critical Care Time: 20
[2023-11-17 01:08] LABS: Chloride 104 mmol/L (98-107)
[2023-11-17 01:09] LABS: Potassium 3.1 mmoL/L (3.5-5.1); Sodium 136 mmol/L (136-145)
[2023-11-17 01:11] LABS: Alanine Aminotransferase 14 U/L (12-78); Aspartate Amino Transferase 42 U/L (17-59); Basophils % 0.4 % (0.1-2.0); Bilirubin,Total 1.5 mg/dl (0.2-1.3); Blood Urea Nitrogen 7 mg/dl (9-20); Creatinine Clearance Estimated 65 mL/min (50-200); Eosinophils # 0.2 K/mm3 (0.0-0.4); Eosinophils % 3.2 % (0.1-12.0); Estimated Glomerular Filt Rate 133 ml/min (>60); GFR (African American) 161 ML/MIN (>60); Hematocrit 23.4 % (42.0-52.0); Lymphocytes # 1.5 K/mm3 (0.7-4.5); Lymphocytes % 22.9 % (10-50); Magnesium 1.8 mg/dl (1.6-2.3); Mean Corpuscular HGB Conc 28.5 g/dL (31.8-35.4); Mean Corpuscular Hemoglobin 23.4 pg (27.0-31.2); Mean Platelet Volume 8.7 fl (7.4-10.4); Monocytes # 0.3 K/mm3 (0.1-1.0); Monocytes % 4.9 % (1.7-9.3); Neutrophils # 4.6 K/mm3 (1.8-7.8); Neutrophils % 68.6 % (37.0-80.0); Phosphorous 3.1 mg/dl (2.5-4.5); Platelet Count 285 K/mm3 (142-424); Red Blood Count 2.85 M/mm3 (4.60-6.20); Red Cell Distribution Width 16.3 % (11.5-17.5); White Blood Count 6.6 K/mm3 (4.8-10.8)
[2023-11-17 01:12] LABS: Albumin Level 3.8 g/dl (3.5-5.0); Albumin/Globulin Ratio 1.5 (1.1-1.8); Alkaline Phosphatase 83 U/L (38-126); Anion Gap 8.1 mEq/L (5-15); Calcium 8.3 mg/dl (8.4-10.2); Carbon Dioxide 27 mmol/L (22.0-30.0); Globulin 2.6 g/dL (1.3-3.2); Glucose 149 mg/dl (74-100); Total Protein,Serum 6.4 g/dl (6.3-8.2)
[2023-11-17 01:13] LABS: Activated Partial Thrombo Time 25.8 seconds (22.8-30.6); INR 1.06 (0.9-1.1); Prothrombin Time 11.4 seconds (10.1-12.5)
[2023-11-17 01:15] LABS: Hemoglobin 6.7 g/dL (14.1-18.0)
--- NOTE | 2023-11-17 01:22 | PC.NURSE ---
Pt blood consent signed in chart
[2023-11-17 01:25] LABS: Troponin I < 0.01 ng/ml (0.00-0.034)
--- NOTE | 2023-11-17 01:32 | P.HP_ITS ---
History of Present Illness *Admission Date: 11/17/23 *Reason for visit:: weakness and SOB *History of present illness: This is a 72-year-old male with PMHx of iron deficiency anemia, hemorrhoids, CAD, open heart surgery on Plavix presented with acute on chronic weakness and shortness of breath on exertion. Patient stated that was evaluated by his primary care physician and there had a hemoglobin of 6.8. and because he is intolerant of oral iron due to constipation, he was advised by PCP to come to this hospital for admission for IV iron infusion. He was planning to come in in the morning however tonight as he was packing his suitcase he felt too weak so called EMS. He also reports that ambulating around his home he has had shortness of breath and occasional chest pain. No known fevers. He denies any dark or bloody stools from the past week. He does not think his hemorrhoids are acutely inflamed. He reports occasional epistaxis but none in the last month. No other known sources of bleeding. Admitted for treatment and further work up. [facility] Disclaimer: The information contained in this section may have been updated after the patient was seen, as this information can be updated by other users. Medical History (Updated 11/17/23 @ 05:36 by Thomas Bob APRN) Hypertension Diabetes GERD (gastroesophageal reflux disease) Surgical History (Updated 11/17/23 @ 02:26 by Jacquelin Valera RN) History of open heart surgery Social History (Updated 11/17/23 @ 03:29 by Jacquelin Valera RN) Smoking Status: Former smoker alcohol intake: former current occupational status: disabled Travel in the last 8 weeks: None housing: house lives independently: Yes marital status: service: Yes ([place] ) status: retired branch: [employer] current occupational exposures/hazards: No Review of Systems Review of Systems Review of systems:: pertinent systems reviewed and negative unless documented below Meds Home Medications and Allergies Home Medications Medication Instructions Recorded Confirmed Type atorvastatin 80 mg tablet 80 mg PO DAILY High cholesterol 90 11/03/17 11/17/23 History days ##90 carvedilol 12.5 mg tablet 12.5 mg PO BID High Blood Pressure 11/03/17 11/17/23 History 90 days ##180 clopidogrel 75 mg tablet 75 mg PO DAILY Platelet Inhibitor 11/03/17 11/17/23 History 90 days ##90 gabapentin 800 mg tablet 800 mg PO BID Pain 30 days ##90 11/03/17 11/17/23 History glimepiride 1 mg tablet 1 mg PO DAILY Diabetes 90 days ##90 11/03/17 11/17/23 History losartan 25 mg tablet 25 mg PO DAILY . 90 days ##90 11/03/17 11/17/23 History meclizine 25 mg tablet 25 mg PO DAILY dizziness 30 days 11/03/17 11/17/23 History ##90 pantoprazole 40 mg tablet,delayed 40 mg PO DAILY Acid Reflux 90 days 11/03/17 11/17/23 History release ##90 aspirin 325 mg tablet 325 mg PO DAILY Heart Health 03/01/18 11/17/23 History furosemide 40 mg tablet 40 mg PO BID Fluid 03/01/18 11/17/23 History acetaminophen 300 mg-codeine 15 mg 1 tab PO Q4HP PRN Moderate Pain 07/10/18 11/17/23 History tablet (Scale Score 5-6) benzonatate 100 mg capsule 100 mg PO TIDP PRN Cough #30 caps 08/26/23 11/17/23 Rx guaifenesin 600 mg tablet, 600 - 1,200 mg (1 - 2 x 600 mg) PO 08/26/23 11/17/23 Rx extended release 12 hr (Mucinex) BIDP PRN Congestion #30 tabs carbidopa ER 25 mg-levodopa 100 mg 1 tab PO BID 11/17/23 11/17/23 History tablet,extended release temazepam 30 mg capsule 30 mg PO HS PRN Sleep 11/17/23 11/17/23 History New Prescriptions to Start Prescriptions: Allergies Allergy/AdvReac Type Severity Reaction Status Date / Time No Known Drug Allergies Allergy Unknown Verified 01/08/19 13:56 [NKDA] Exam Data for Last 24 hours Vital signs and Labs for Last 24 Hours: Temp Pulse Resp BP Pulse Ox O2 Del Method O2 Flow Rate 97.8 F 68 20 125/53 L 99 Nasal Cannula 2 11/17/23 00:47 11/17/23 00:47 11/17/23 00:47 11/17/23 00:47 11/17/23 00:47 11/17/23 00:47 11/17/23 00:47 Laboratory Results - last 24 hr 11/17/23 00:50: WBC 6.6, RBC 2.85 L, Hgb 6.7 L*, Hct 23.4 L, MCV 82.0, MCH 23.4 L, MCHC 28.5 L, RDW 16.3, Plt Count 285, MPV 8.7, Neut % (Auto) 68.6, Lymph % (Auto) 22.9, [place] % (Auto) 4.9, Eos % (Auto) 3.2, Baso % (Auto) 0.4, Neut # (Auto) 4.6, Lymph # (Auto) 1.5, [place] # (Auto) 0.3, Eos # (Auto) 0.2, Baso # (Auto) 0.0, PT 11.4, INR 1.06, APTT 25.8, Sodium 136, Potassium 3.1 L, Chloride 104, Carbon Dioxide 27, Anion Gap 8.1, BUN 7 L, Creatinine 0.60 L, Estimated Creat Clear 65, Estimated GFR 133, Est GFR ( Amer) 161, Glucose 149 H, Calcium 8.3 L, Phosphorus 3.1, Magnesium 1.8, Total Bilirubin 1.5 H, AST 42, ALT 14, Alkaline Phosphatase 83, Troponin I < 0.01, Total Protein 6.4, Albumin 3.8, Globulin 2.6, Albumin/Globulin Ratio 1.5 I & O for Last 24 hours: Intake & Output 11/14/23 11/15/23 11/16/23 11/17/23 23:59 23:59 23:59 23:59 Weight 68.039 kg Constitutional Constitutional: mild distress and cooperative *Routine HEENT Exam Head: Present normocephalic Eye: Present EOMI and PERRL ENT: Present mucous membranes moist *Routine Neck Exam Neck: Present supple; Absent lymphadenopathy *Routine Respiratory Exam Respiratory: Present CTA bilaterally *Routine Cardiovascular Exam Cardiovascular: Present RRR *Routine Abdominal Exam Abdominal: Present soft and normoactive bowel sounds; Absent tenderness *Routine Rectal Exam Rectal:: deferred *Routine Genitalia Exam Genitalia:: deferred *Routine Extremities Exam Extremities: Absent cyanosis, clubbing or edema *Routine Skin Exam Skin: Present intact, pallor and warm; Absent rash *Routine Neurological Exam Neurological: Present alert and oriented X3 H&P: Result Imaging and Cardiology EKG: Status: image reviewed by me, Preliminary report and final report Chest x-ray: Status: image reviewed by me, Preliminary report and final report Assessment and Plan *Assessment and plan (1) RALF (iron deficiency anemia): Status: Acute Qualifiers: Iron deficiency anemia type: chronic blood loss Qualified Code(s): D50.0 - Iron deficiency anemia secondary to blood loss (chronic) Category: Medical Code(s): D50.9 - Iron deficiency anemia, unspecified (2) Diabetes: Status: Acute Qualifiers: Diabetes mellitus complication status: with other specified complication Diabetes mellitus longterm insulin use: without watermelon inspector use Diabetes mellitus type: type 2 Qualified Code(s): E11.69 - Type 2 diabetes mellitus with other specified complication Category: Medical Code(s): E11.9 - Type 2 diabetes mellitus without complications (3) Hypertension: Status: Acute Qualifiers: Hypertension type: unspecified Qualified Code(s): I10 - Essential (primary) hypertension Category: Medical Code(s): I10 - Essential (primary) hypertension (4) GERD (gastroesophageal reflux disease): Status: Acute Qualifiers: Esophagitis presence: esophagitis presence not specified Qualified Code(s): K21.9 - Gastro-esophageal reflux disease without esophagitis Category: Medical Code(s): K21.9 - Gastro-esophageal reflux disease without esophagitis Plan 72-year-old male with PMHx of iron deficiency anemia, hemorrhoids, CAD, open heart surgery on Plavix presented with acute on chronic weakness and shortness of breath on exertion. Patient stated that was evaluated by his primary care physician and there had a hemoglobin of 6.8. > Here on arrival labs were retaken and Hb confirmed to be 6.7. CXR normal and EKG as well. Patient hemodinamically tsable. Findings discussed with the ER. Agreed for admission. Plan as follow: -RALF associated with chronic blood loss. l Hx of internal hemorrhoids: Admit patient for medical service. Dispo MedSurg Transfused 2 units of PRBC Monitoring per unit Repeat hemoglobin postinfusion Obtain iron binding capacity and total iron Monitor CBC Follow-up # outpatient for GI colonoscopy History of diabetes: Accu-Chek before meals Sliding scale Obtain A1c -Hypertension and CAD: Resume and reconcile home medication Medicine on carvedilol furosemide and losartan On Plavix and atorvastatin SCD for DVT prophylaxis. On Protonix for GI bleed protection and GERD Full code Rounded on patient after nurse practitioner. Personally examined and interviewed patient. Agree with exam findings and care plan as documented. Consulted surgery to evaluate for possible source of bleeding.
--- NOTE | 2023-11-17 01:32 | ECG_ITS ---
APPROVED REPORT Exam: Resting ECG HR:64 bpm ECG Measurements Heart Rate 64 AXES TN 172 P 23 QRSd 86 QRS 49 QT 453 T 64 QTc 462 Conclusion SINUS RHYTHM PROLONGED QT INTERVAL ABNORMAL ECG -Reina Narvaez MD Electronically signed by : REINA NARVAEZ, 11/17/2023 07:03:38
--- NOTE | 2023-11-17 01:43 | PC.NURSE ---
Patient admitted to room 213 to hospitalist for anemia; observation status.
--- NOTE | 2023-11-17 02:00 | PC.NURSE ---
report called to Anita Valera RN
[2023-11-17] MEDS: 0.9 % SODIUM CHLORIDE 250 ML 25 ML IV (02:45)
--- NOTE | 2023-11-17 03:19 | PC.NURSE ---
during assessment, patient states he can only pee standing up and sometimes he has to apply pressure to his lower abd to jumpstart urination. Asked patient if takes medications for urinary/prostate issues and patient denies. Otherwise patient is comfortable and now receiving his first unit of blood (started 0245) and tolerating well. Lung sounds clear, no edema or s/s of transfusion reaction. Patient also relays during admission questions he doesn't want his brother to have any part of his healthcare decision if he ever became unable to make choices, only his sister, Oly (but he doesn't know her number at this time - she lives in [place], [place]).
[2023-11-17] MEDS: POTASSIUM CHLORIDE 20MEQ TAB 40 MEQ PO (03:32)
[2023-11-17 05:16] LABS: Troponin I < 0.01 ng/ml (0.00-0.034)
--- NOTE | 2023-11-17 05:56 | PC.NURSE ---
0458 1st unit prbc's complete 0595 2nd unit prbc's started - patient tolerating well and lungs clear
[2023-11-17 06:13] LABS: POC Glucose,Bedside 106 (70-110)
--- NOTE | 2023-11-17 07:13 | HMH.PHAINT1 ---
Pharmacy Intervention Comments: HOME MEDICATION LIST VERIFIED VIA OUTSIDE PHARMACY AND PAST OFFICE/ER NOTES
--- NOTE | 2023-11-17 07:49 | EXP.SURG.CON ---
History of Present Illness *Admission Date: 11/17/23 *Reason for visit:: Anemia, suspect GI blood loss *History of present illness: Asked to see patient for anemia and possible GI blood loss. He has a history of iron deficiency anemia, hemorrhoids, coronary artery disease, coronary artery bypass grafting on Plavix. He has been seeing a provider at [facility] for anemia. He had presented with exacerbation of weakness and shortness of breath. Outpatient labs reportedly revealed diminished hemoglobin a few days ago. Patient was being set up for outpatient transfusion at [facility] on 11/16/2023 but reportedly did not present for transfusion. Due to progressive weakness overnight he contacted EMS and was transported to [facility] emergency department early this morning. He was noted to have a hemoglobin of 6.7. He does have a history of hemorrhoids. Denies any rectal bleeding or melena. There are no laboratory evaluation regarding hemoglobin in the system at this facility until about 4 years ago at which time his hemoglobin was 11.8. Of note, I had seen the patient in 2007 and performed a colonoscopy at which time he had some minimal internal hemorrhoids. I saw the patient in 2014 for evaluation of anemia after referral by hematology and plan was for EGD and colonoscopy but the patient did not follow through with this. I saw the patient 5 years ago for evaluation of hemorrhoids and plan was made for colonoscopy but the patient did not follow through with this. Patient states that he had an EGD and colonoscopy performed by Dr. Perez a year ago in [place] to evaluate his anemia. Patient ate a cardiac diet this morning. [facility] Disclaimer: The information contained in this section may have been updated after the patient was seen, as this information can be updated by other users. Medical History (Updated 11/17/23 @ 05:36 by Thomas Bob APRN) Hypertension Diabetes GERD (gastroesophageal reflux disease) Surgical History (Updated 11/17/23 @ 02:26 by Jacquelin Valera RN) History of open heart surgery Social History (Updated 11/17/23 @ 03:29 by Jacquelin Valera RN) Smoking Status: Former smoker alcohol intake: former current occupational status: disabled Travel in the last 8 weeks: None household members: spouse housing: house lives independently: Yes marital status: service: Yes ([place] ) status: retired branch: [employer] current occupational exposures/hazards: No Meds Home Medications and Allergies Home Medications Medication Instructions Recorded Confirmed Type atorvastatin 80 mg tablet 80 mg PO DAILY High cholesterol 90 11/03/17 11/17/23 History days ##90 carvedilol 12.5 mg tablet 12.5 mg PO BID High Blood Pressure 11/03/17 11/17/23 History 90 days ##180 clopidogrel 75 mg tablet 75 mg PO DAILY Platelet Inhibitor 11/03/17 11/17/23 History 90 days ##90 gabapentin 800 mg tablet 800 mg PO BID Pain 30 days ##90 11/03/17 11/17/23 History glimepiride 1 mg tablet 1 mg PO DAILY Diabetes 90 days ##90 11/03/17 11/17/23 History losartan 25 mg tablet 25 mg PO DAILY . 90 days ##90 11/03/17 11/17/23 History meclizine 25 mg tablet 25 mg PO DAILY dizziness 30 days 11/03/17 11/17/23 History ##90 pantoprazole 40 mg tablet,delayed 40 mg PO DAILY Acid Reflux 90 days 11/03/17 11/17/23 History release ##90 aspirin 325 mg tablet 325 mg PO DAILY Heart Health 03/01/18 11/17/23 History furosemide 40 mg tablet 40 mg PO BID Fluid 03/01/18 11/17/23 History acetaminophen 300 mg-codeine 15 mg 1 tab PO Q4HP PRN Moderate Pain 07/10/18 11/17/23 History tablet (Scale Score 5-6) benzonatate 100 mg capsule 100 mg PO TIDP PRN Cough #30 caps 08/26/23 11/17/23 Rx guaifenesin 600 mg tablet, 600 - 1,200 mg (1 - 2 x 600 mg) PO 08/26/23 11/17/23 Rx extended release 12 hr (Mucinex) BIDP PRN Congestion #30 tabs carbidopa ER 25 mg-levodopa 100 mg 1 tab PO BID 11/17/23 11/17/23 History tablet,extended release temazepam 30 mg capsule 30 mg PO HS PRN Sleep 11/17/23 11/17/23 History New Prescriptions to Start Prescriptions: Allergies Allergy/AdvReac Type Severity Reaction Status Date / Time No Known Drug Allergies Allergy Unknown Verified 01/08/19 13:56 [NKDA] Exam (Inpt) Vital signs and Labs for Last 24 Hours: Temp Pulse Resp BP Pulse Ox O2 Del Method O2 Flow Rate 97.9 F 62 16 156/57 H 98 Room Air 2 11/17/23 06:25 11/17/23 06:25 11/17/23 06:25 11/17/23 06:25 11/17/23 06:25 11/17/23 06:27 11/17/23 04:24 Laboratory Results - last 24 hr 11/17/23 00:50: WBC 6.6, RBC 2.85 L, Hgb 6.7 L*, Hct 23.4 L, MCV 82.0, MCH 23.4 L, MCHC 28.5 L, RDW 16.3, Plt Count 285, MPV 8.7, Neut % (Auto) 68.6, Lymph % (Auto) 22.9, [place] % (Auto) 4.9, Eos % (Auto) 3.2, Baso % (Auto) 0.4, Neut # (Auto) 4.6, Lymph # (Auto) 1.5, [place] # (Auto) 0.3, Eos # (Auto) 0.2, Baso # (Auto) 0.0, PT 11.4, INR 1.06, APTT 25.8, Sodium 136, Potassium 3.1 L, Chloride 104, Carbon Dioxide 27, Anion Gap 8.1, BUN 7 L, Creatinine 0.60 L, Estimated Creat Clear 65, Estimated GFR 133, Est GFR ( Amer) 161, Glucose 149 H, Calcium 8.3 L, Phosphorus 3.1, Magnesium 1.8, Total Bilirubin 1.5 H, AST 42, ALT 14, Alkaline Phosphatase 83, Troponin I < 0.01, Total Protein 6.4, Albumin 3.8, Globulin 2.6, Albumin/Globulin Ratio 1.5 11/17/23 01:00: Blood Type A Negative, Antibody Screen Negative, Crossmatch (AHG) See Detail 11/17/23 02:12: Blood Type Confirm A Negative 11/17/23 04:45: Troponin I < 0.01 11/17/23 05:39: POC Glucose 106 I & O for Labs for Last 24 Hours: Intake & Output 11/14/23 11/15/23 11/16/23 11/17/23 11:59 11:59 11:59 11:59 Intake Total 545 / 545 Output Total 700 / 700 Balance -155 / -155 Weight 150 lb 0.005 oz Constitutional: no acute distress Comment:: Pale appearing GI: Present soft Results Labs 11/17/23 00:50 11/17/23 00:50 Labs: Laboratory Results - last 24 hr 11/17/23 00:50: WBC 6.6, RBC 2.85 L, Hgb 6.7 L*, Hct 23.4 L, MCV 82.0, MCH 23.4 L, MCHC 28.5 L, RDW 16.3, Plt Count 285, MPV 8.7, Neut % (Auto) 68.6, Lymph % (Auto) 22.9, [place] % (Auto) 4.9, Eos % (Auto) 3.2, Baso % (Auto) 0.4, Neut # (Auto) 4.6, Lymph # (Auto) 1.5, [place] # (Auto) 0.3, Eos # (Auto) 0.2, Baso # (Auto) 0.0, PT 11.4, INR 1.06, APTT 25.8, Sodium 136, Potassium 3.1 L, Chloride 104, Carbon Dioxide 27, Anion Gap 8.1, BUN 7 L, Creatinine 0.60 L, Estimated Creat Clear 65, Estimated GFR 133, Est GFR ( Amer) 161, Glucose 149 H, Calcium 8.3 L, Phosphorus 3.1, Magnesium 1.8, Total Bilirubin 1.5 H, AST 42, ALT 14, Alkaline Phosphatase 83, Troponin I < 0.01, Total Protein 6.4, Albumin 3.8, Globulin 2.6, Albumin/Globulin Ratio 1.5 11/17/23 01:00: Blood Type A Negative, Antibody Screen Negative, Crossmatch (AHG) See Detail 11/17/23 02:12: Blood Type Confirm A Negative 11/17/23 04:45: Troponin I < 0.01 11/17/23 05:39: POC Glucose 106 Assessment and Plan *Assessment and plan (1) RALF (iron deficiency anemia): Status: Acute Qualifiers: Iron deficiency anemia type: chronic blood loss Qualified Code(s): D50.0 - Iron deficiency anemia secondary to blood loss (chronic) Category: Medical Code(s): D50.9 - Iron deficiency anemia, unspecified Plan I will see if I can obtain the records from previous pain endoscopy. May need small bowel evaluation.
[2023-11-17] MEDS: PANTOPRAZOLE 40MG TABLET 40 MG PO (09:24)
[2023-11-17] MEDS: GABAPENTIN 800MG TABLET 800 MG PO (09:24)
[2023-11-17] MEDS: MECLIZINE 25MG TABLET 25 MG PO (09:25)
[2023-11-17] MEDS: FUROSEMIDE 40 MG TABLET PO (09:25)
[2023-11-17] MEDS: CARVEDILOL 12.5MG TABLET 12.5 MG PO (09:25)
[2023-11-17] MEDS: GLIMEPIRIDE 2 MG TABLET 1 MG PO (09:26)
[2023-11-17] MEDS: IRBESARTAN 75MG TABLET 37.5 MG PO (09:27)
[2023-11-17] MEDS: ATORVASTATIN 40MG TABLET 80 MG PO (09:28)
--- NOTE | 2023-11-17 11:43 | PC.NURSE ---
Late entry. Pt stated to this nurse that he was leaving AMA. This nurse educated pt on the importance of staying and receiving care. Pt declined. was notified. Pt signed out against medical advice and left floor @ 1050.
--- NOTE | 2023-11-17 17:14 | EXP.DC.SUM ---
General Admission date:: 11/17/23 Discharge date: 11/17/23 HPI HPI HPI: Asked to see patient for anemia and possible GI blood loss. He has a history of iron deficiency anemia, hemorrhoids, coronary artery disease, coronary artery bypass grafting on Plavix. He has been seeing a provider at [facility] for anemia. He had presented with exacerbation of weakness and shortness of breath. Outpatient labs reportedly revealed diminished hemoglobin a few days ago. Patient was being set up for outpatient transfusion at [facility] on 11/16/2023 but reportedly did not present for transfusion. Due to progressive weakness overnight he contacted EMS and was transported to [facility] emergency department early this morning. He was noted to have a hemoglobin of 6.7. He does have a history of hemorrhoids. Denies any rectal bleeding or melena. There are no laboratory evaluation regarding hemoglobin in the system at this facility until about 4 years ago at which time his hemoglobin was 11.8. Of note, I had seen the patient in 2007 and performed a colonoscopy at which time he had some minimal internal hemorrhoids. I saw the patient in 2014 for evaluation of anemia after referral by hematology and plan was for EGD and colonoscopy but the patient did not follow through with this. I saw the patient 5 years ago for evaluation of hemorrhoids and plan was made for colonoscopy but the patient did not follow through with this. Patient states that he had an EGD and colonoscopy performed by Dr. Perez a year ago in [place] to evaluate his anemia. Patient ate a cardiac diet this morning. Hospital Course Hospital Course Hospital Course: 72-year-old male admitted for anemia. Surgery was consulted to assist with management and workup for possible cause of anemia. Records obtained from [place] where he has previously had scopes with no identified source of bleeding. Transfused 2 units. Hemoglobin 6.7 on presentation. Patient refused post transfusion labs, unclear his posttransfusion H&H. After much discussion about need for serial labs and management for possible bleeding, patient stated he is not having any black stools or bloody stools. States he has prominent hemorrhoids for which she wears a pad in his underwear because of intermittent bleeding. Does not want further workup. Was adamant that he was leaving and going home. Counseled on risks of leaving AGAINST MEDICAL ADVICE and benefits of staying for further management and workup. Patient again stated he was adamant about going home and did not want to stay in the hospital. Opted to leave AMA. Exam Data for Last 24 hours Vital signs and Labs for Last 24 Hours: Temp Pulse Resp BP Pulse Ox O2 Del Method O2 Flow Rate 97.8 F 67 17 182/86 H 98 Room Air 2 11/17/23 09:00 11/17/23 09:00 11/17/23 09:00 11/17/23 09:00 11/17/23 09:00 11/17/23 10:40 11/17/23 04:24 Laboratory Results - last 24 hr 11/17/23 00:50: WBC 6.6, RBC 2.85 L, Hgb 6.7 L*, Hct 23.4 L, MCV 82.0, MCH 23.4 L, MCHC 28.5 L, RDW 16.3, Plt Count 285, MPV 8.7, Neut % (Auto) 68.6, Lymph % (Auto) 22.9, [place] % (Auto) 4.9, Eos % (Auto) 3.2, Baso % (Auto) 0.4, Neut # (Auto) 4.6, Lymph # (Auto) 1.5, [place] # (Auto) 0.3, Eos # (Auto) 0.2, Baso # (Auto) 0.0, PT 11.4, INR 1.06, APTT 25.8, Sodium 136, Potassium 3.1 L, Chloride 104, Carbon Dioxide 27, Anion Gap 8.1, BUN 7 L, Creatinine 0.60 L, Estimated Creat Clear 65, Estimated GFR 133, Est GFR ( Amer) 161, Glucose 149 H, Calcium 8.3 L, Phosphorus 3.1, Magnesium 1.8, Total Bilirubin 1.5 H, AST 42, ALT 14, Alkaline Phosphatase 83, Troponin I < 0.01, Total Protein 6.4, Albumin 3.8, Globulin 2.6, Albumin/Globulin Ratio 1.5 11/17/23 01:00: Blood Type A Negative, Antibody Screen Negative, Crossmatch (AHG) See Detail 11/17/23 02:12: Blood Type Confirm A Negative 11/17/23 04:45: Troponin I < 0.01 11/17/23 05:39: POC Glucose 106 I & O for Last 24 hours: Intake & Output 11/14/23 11/15/23 11/16/23 03/28/24 23:59 23:59 23:59 23:59 Intake Total 1143 / 1143 Output Total 1000 / 1000 Balance 143 / 143 Weight 68.039 kg Constitutional Constitutional: no acute distress, average body habitus and chronically ill appearing *Routine HEENT Exam Head: Present normocephalic Eye: Present EOMI and PERRL ENT: Present mucous membranes moist *Routine Neck Exam Neck: Present supple; Absent lymphadenopathy *Routine Respiratory Exam Respiratory: Present CTA bilaterally; Absent rhonchi, wheezes or crackles *Routine Cardiovascular Exam Cardiovascular: Present RRR *Routine Abdominal Exam Abdominal: Present soft and normoactive bowel sounds; Absent tenderness *Routine Extremities Exam Extremities: Absent cyanosis, clubbing or edema *Routine Skin Exam Skin: Present pallor and warm; Absent rash *Routine Neurological Exam Neurological: Present alert, oriented X3 and moving all extremities; Absent altered mental status Routine Psychiatric Exam Psychiatric: Present normal affect; Absent good insight or good judgment Results Data Completed and Pending Labs on day of discharge: Labs from last 24 hours 11/17/23 11/17/23 11/17/23 05:39 04:45 02:12 WBC RBC Hgb Hct MCV MCH MCHC RDW Plt Count MPV Neut % (Auto) Lymph % (Auto) [place] % (Auto) Eos % (Auto) Baso % (Auto) Neut # (Auto) Lymph # (Auto) [place] # (Auto) Eos # (Auto) Baso # (Auto) PT INR APTT Sodium Potassium Chloride Carbon Dioxide Anion Gap BUN Creatinine Estimated Creat Clear Estimated GFR Est GFR ( Amer) Glucose POC Glucose 106 Calcium Phosphorus Magnesium Total Bilirubin AST ALT Alkaline Phosphatase Troponin I < 0.01 Total Protein Albumin Globulin Albumin/Globulin Ratio Blood Type Blood Type Confirm A Negative Antibody Screen Crossmatch ([facility]) 11/17/23 11/17/23 01:00 00:50 WBC 6.6 RBC 2.85 L Hgb 6.7 L* Hct 23.4 L MCV 82.0 MCH 23.4 L MCHC 28.5 L RDW 16.3 Plt Count 285 MPV 8.7 Neut % (Auto) 68.6 Lymph % (Auto) 22.9 [place] % (Auto) 4.9 Eos % (Auto) 3.2 Baso % (Auto) 0.4 Neut # (Auto) 4.6 Lymph # (Auto) 1.5 [place] # (Auto) 0.3 Eos # (Auto) 0.2 Baso # (Auto) 0.0 PT 11.4 INR 1.06 APTT 25.8 Sodium 136 Potassium 3.1 L Chloride 104 Carbon Dioxide 27 Anion Gap 8.1 BUN 7 L Creatinine 0.60 L Estimated Creat Clear 65 Estimated GFR 133 Est GFR ( Amer) 161 Glucose 149 H POC Glucose Calcium 8.3 L Phosphorus 3.1 Magnesium 1.8 Total Bilirubin 1.5 H AST 42 ALT 14 Alkaline Phosphatase 83 Troponin I < 0.01 Total Protein 6.4 Albumin 3.8 Globulin 2.6 Albumin/Globulin Ratio 1.5 Blood Type A Negative Blood Type Confirm Antibody Screen Negative Crossmatch (AHG) See Detail DS: Diagnosis Discharge Diagnosis (1) RALF (iron deficiency anemia): Status: Acute Code(s): D50.9 - Iron deficiency anemia, unspecified Qualifiers: Iron deficiency anemia type: chronic blood loss Qualified Code(s): D50.0 - Iron deficiency anemia secondary to blood loss (chronic) (2) Diabetes: Status: Acute Code(s): E11.9 - Type 2 diabetes mellitus without complications Qualifiers: Diabetes mellitus type: type 2 Diabetes mellitus moth exterminator insulin use: without moth exterminator use Diabetes mellitus complication status: with other specified complication Qualified Code(s): E11.69 - Type 2 diabetes mellitus with other specified complication (3) Hypertension: Status: Acute Code(s): I10 - Essential (primary) hypertension Qualifiers: Hypertension type: unspecified Qualified Code(s): I10 - Essential (primary) hypertension (4) GERD (gastroesophageal reflux disease): Status: Acute Code(s): K21.9 - Gastro-esophageal reflux disease without esophagitis Qualifiers: Esophagitis presence: esophagitis presence not specified Qualified Code(s): K21.9 - Gastro-esophageal reflux disease without esophagitis Meds Home Medications and Allergies Home Medications Medication Instructions Recorded Confirmed Type atorvastatin 80 mg tablet 80 mg PO DAILY High cholesterol 90 11/03/17 11/17/23 History days ##90 carvedilol 12.5 mg tablet 12.5 mg PO BID High Blood Pressure 11/03/17 11/17/23 History 90 days ##180 clopidogrel 75 mg tablet 75 mg PO DAILY Platelet Inhibitor 11/03/17 11/17/23 History 90 days ##90 gabapentin 800 mg tablet 800 mg PO BID Pain 30 days ##90 11/03/17 11/17/23 History glimepiride 1 mg tablet 1 mg PO DAILY Diabetes 90 days ##90 11/03/17 11/17/23 History losartan 25 mg tablet 25 mg PO DAILY . 90 days ##90 11/03/17 11/17/23 History meclizine 25 mg tablet 25 mg PO DAILY dizziness 30 days 11/03/17 11/17/23 History ##90 pantoprazole 40 mg tablet,delayed 40 mg PO DAILY Acid Reflux 90 days 11/03/17 11/17/23 History release ##90 aspirin 325 mg tablet 325 mg PO DAILY Heart Health 03/01/18 11/17/23 History furosemide 40 mg tablet 40 mg PO BID Fluid 03/01/18 11/17/23 History acetaminophen 300 mg-codeine 15 mg 1 tab PO Q4HP PRN Moderate Pain 07/10/18 11/17/23 History tablet (Scale Score 5-6) benzonatate 100 mg capsule 100 mg PO TIDP PRN Cough #30 caps 08/26/23 11/17/23 Rx guaifenesin 600 mg tablet, 600 - 1,200 mg (1 - 2 x 600 mg) PO 08/26/23 11/17/23 Rx extended release 12 hr (Mucinex) BIDP PRN Congestion #30 tabs carbidopa ER 25 mg-levodopa 100 mg 1 tab PO BID 11/17/23 11/17/23 History tablet,extended release temazepam 30 mg capsule 30 mg PO HS PRN Sleep 11/17/23 11/17/23 History New Prescriptions to Start Prescriptions: Allergies Allergy/AdvReac Type Severity Reaction Status Date / Time No Known Drug Allergies Allergy Unknown Verified 01/08/19 13:56 [NKDA] Discharge Plan Disposition Patient Disposition: Left Against Medical Advice Condition: Serious Providers Admit Provider: Tex Castellanos Attending Provider: Tex Castellanos
== END 2023-11-17 10:50 | disposition left against medical advice (07) ==
LOC: ER 01:40 → 2ND 04:46
PROVIDERS: Admitting Provider Internal Medicine Adolescent Medicine; Emergency Provider Emergency Medicine; Visit Provider Internal Medicine Adolescent Medicine
DX: D50.0 Iron deficiency anemia secondary to blood loss (chronic) (principal); E11.69 Type 2 diabetes mellitus with other specified complication; I10 Essential (primary) hypertension; K21.9 Gastro-esophageal reflux disease without esophagitis; Z87.891 Personal history of nicotine dependence; Z79.02 Long term (current) use of antithrombotics/antiplatelets; Z79.84 Long term (current) use of oral hypoglycemic drugs; Z79.899 Other long term (current) drug therapy; Z95.1 Presence of aortocoronary bypass graft
CPT/HCPCS: 36415; 36430; 71045; 80053; 82962; 83735; 84100; 84484; 85025; 85610; 85730; 86850; 93005; 99285; G0378; P9016

== ENCOUNTER 2023-11-29 16:23 | Emergency (ER) | payer MEDICARE, SELFPAY ==
[2023-11-29 16:31] VITALS: BP 96/72; PULSE 72; O2SAT 98
--- NOTE | 2023-11-29 16:32 | PC.NURSE ---
Dr. Tubbs at [facility] for pt eval
--- NOTE | 2023-11-29 16:38 | ED_ITS ---
Discharge Plan Disposition Patient Disposition: Home, Self-Care Prescriptions Prescriptions: No Action meclizine 25 mg tablet 25 mg PO DAILY 30 Days Qty: 90 Patient Comments: gabapentin 800 mg tablet 800 mg PO BID 30 Days Qty: 90 Patient Comments: carvedilol 12.5 mg tablet 12.5 mg PO BID 90 Days Qty: 180 Patient Comments: atorvastatin 80 mg tablet 80 mg PO DAILY 90 Days Qty: 90 Patient Comments: losartan 25 mg tablet 25 mg PO DAILY 90 Days Qty: 90 Patient Comments: glimepiride 1 mg tablet 1 mg PO DAILY 90 Days Qty: 90 Patient Comments: pantoprazole 40 mg tablet,delayed release (DR/EC) 40 mg PO DAILY 90 Days Qty: 90 Patient Comments: take 1 tablet by mouth once daily clopidogrel 75 mg tablet 75 mg PO DAILY 90 Days Qty: 90 Patient Comments: take 1 tablet by mouth once daily acetaminophen-codeine 300-15 mg tablet 1 tab PO Q4HP PRN (Reason: Moderate Pain (Scale Score 5-6)) benzonatate [benzonatate] 100 mg capsule 100 mg PO TIDP PRN (Reason: Cough) Qty: 30 0RF guaifenesin [Mucinex] 600 mg tablet extended release 12hr 600 - 1,200 mg PO BIDP PRN (Reason: Congestion) Qty: 30 0RF furosemide 40 MG tablet 40 mg PO BID aspirin 325 MG tablet 325 mg PO DAILY carbidopa-levodopa 25-100 mg tablet extended release 1 tab PO BID Patient Comments: TAKE 1 TABLET BY MOUTH TWICE DAILY temazepam 30 mg capsule 30 mg PO HS PRN (Reason: Sleep) Patient Comments: TAKE 1 CAPSULE BY MOUTH AT NIGHT NEEDED FOR SLEEP Referrals Follow up/Referrals: Alexis Valleoj MD [Primary Care Provider] - See instructions Activity Restrictions/Add. Instructions Additional Instructions/Restrictions: Medical screening exam was normal no evidence of any anemia that is needing transfusion her hemoglobin is above 10 you are never needing a transfusion at the moment please follow-up with your medical doctor or primary care doctor as previously instructed. Clinical Impressions Clinical Impression: Anemia Discharge ED Provider: Nava Tubbs General Adult HPI General Chief complaint: Recheck/Abnormal Lab/Rx Stated complaint: sent by physician, poss anemia Time Seen by Provider: 11/29/23 16:27 History of Present Illness HPI narrative: Patient is a 72-year-old gentleman with a history of blood loss anemia recently admitted on November 16 where he had a hemoglobin of 6.7 was administered 2 units of blood he opted to not have any type of intervention from a colonoscopy or an EGD standpoint stating that he had intervention with Dr. Perez at [facility] within the last year that was clean he is adamant that he has had bleeding hemorrhoids he left AMA after being transfused blood. His primary care doctor called him today and told him to go to the emergency department as he may be anemic again. No further blood test have been drawn to our knowledge. Patient denies any other symptoms other than just intermittent fatigue. Does have chronic melena but takes iron supplementation states this is at his baseline. Related Data Home Medications Medication Instructions Recorded Confirmed atorvastatin 80 mg tablet 80 mg PO DAILY High cholesterol 90 11/03/17 11/17/23 days ##90 carvedilol 12.5 mg tablet 12.5 mg PO BID High Blood Pressure 11/03/17 11/17/23 90 days ##180 clopidogrel 75 mg tablet 75 mg PO DAILY Platelet Inhibitor 11/03/17 11/17/23 90 days ##90 gabapentin 800 mg tablet 800 mg PO BID Pain 30 days ##90 11/03/17 11/17/23 glimepiride 1 mg tablet 1 mg PO DAILY Diabetes 90 days ##90 11/03/17 11/17/23 losartan 25 mg tablet 25 mg PO DAILY . 90 days ##90 11/03/17 11/17/23 meclizine 25 mg tablet 25 mg PO DAILY dizziness 30 days 11/03/17 11/17/23 ##90 pantoprazole 40 mg tablet,delayed 40 mg PO DAILY Acid Reflux 90 days 11/03/17 11/17/23 release ##90 aspirin 325 mg tablet 325 mg PO DAILY Heart Health 03/01/18 11/17/23 furosemide 40 mg tablet 40 mg PO BID Fluid 03/01/18 11/17/23 acetaminophen 300 mg-codeine 15 mg 1 tab PO Q4HP PRN Moderate Pain 07/10/18 11/17/23 tablet (Scale Score 5-6) carbidopa ER 25 mg-levodopa 100 mg 1 tab PO BID 11/17/23 11/17/23 tablet,extended release temazepam 30 mg capsule 30 mg PO HS PRN Sleep 11/17/23 11/17/23 Previous Rx's Medication Instructions Recorded benzonatate 100 mg capsule 100 mg PO TIDP PRN Cough #30 caps 08/26/23 guaifenesin 600 mg tablet, 600 - 1,200 mg (1 - 2 x 600 mg) PO 08/26/23 extended release 12 hr (Mucinex) BIDP PRN Congestion #30 tabs Allergies Allergy/AdvReac Type Severity Reaction Status Date / Time No Known Drug Allergies Allergy Unknown Verified 01/08/19 13:56 [NKDA] [facility] Disclaimer: The information contained in this section may have been updated after the patient was seen, as this information can be updated by other users. Medical History (Updated 11/29/23 @ 16:40 by Nava Tubbs MD) Hypertension Diabetes GERD (gastroesophageal reflux disease) Surgical History (Updated 11/17/23 @ 02:26 by Jacquelin Valera RN) History of open heart surgery Social History (Updated 11/17/23 @ 03:29 by Jacquelin Valera RN) Smoking Status: Never smoker alcohol intake: former current occupational status: disabled Travel in the last 8 weeks: None housing: house lives independently: Yes marital status: service: Yes ([place] ) status: retired branch: [employer] current occupational exposures/hazards: No ROS Obtained: Yes All systems reviewed & no additional complaints except as documented Physical Exam General General appearance: alert and in no apparent distress Respiratory Respiratory exam: Present normal lung sounds bilaterally; Absent respiratory distress Cardiovascular Cardiovascular exam: Present regular rate and normal rhythm Abdominal Exam Abdominal exam: Present soft; Absent distention or tenderness Neurological Exam Neurological exam: Present alert and oriented X3 Medical Decision Making Jose Rafael Inquiry Pt receiving controlled substance: No Vital Signs: 11/29/23 16:31 11/29/23 16:51 11/29/23 17:30 Temperature 98.9 F Temperature Source Oral Pulse Rate 72 65 Pulse Rate [Left Radial] 69 Respiratory Rate 20 Blood Pressure 96/72 L 130/68 Blood Pressure [Right Arm] 96/72 L Blood Pressure Mean Blood Pressure Mean [Right Arm] 80 02 Sat by Pulse Oximetry 98 99 98 Oxygen Delivery Method Room Air Room Air 11/29/23 18:00 Temperature Temperature Source Pulse Rate 69 Pulse Rate [Left Radial] Respiratory Rate Blood Pressure 118/69 Blood Pressure [Right Arm] Blood Pressure Mean 78 Blood Pressure Mean [Right Arm] 02 Sat by Pulse Oximetry 97 Oxygen Delivery Method Room Air Lab Data Lab results reviewed: Yes I reviewed the patient's lab results. Lab Results 11/29/23 17:00: WBC 5.6, RBC 3.79 L, Hgb 10.4 L, Hct 34.5 L, MCV 91.1, MCH 27.3, MCHC 30.0 L, RDW 20.0 H, Plt Count 238, MPV 8.3, Neut % (Auto) 66.7, Lymph % (Auto) 23.7, [place] % (Auto) 4.4, Eos % (Auto) 4.6, Baso % (Auto) 0.7, Neut # (Auto) 3.7, Lymph # (Auto) 1.3, [place] # (Auto) 0.3, Eos # (Auto) 0.3, Baso # (Auto) 0.0, PT 11.4, INR 1.06, APTT 27.7, Sodium 141, Potassium 3.2 L, Chloride 105, Carbon Dioxide 31 H, Anion Gap 8.2, BUN 5 L, Creatinine 0.60 L, Estimated Creat Clear 74, Estimated GFR 133, Est GFR ( Amer) 161, Glucose 140 H, Calcium 8.7, Total Bilirubin 1.6 H, AST 41, ALT 13, Alkaline Phosphatase 87, Total Protein 7.2, Albumin 4.3, Globulin 2.9, Albumin/Globulin Ratio 1.5 11/29/23 17:00 11/29/23 17:00 Orders (Tests/Meds): ED MEDICATIONS Generic Name Dose Route Start Last Admin Trade Name Freq PRN Reason Stop Dose Admin Sodium Chloride 10 ml 11/29/23 17:10 Sodium Chloride 0.9% 10ml Flush Syringe IV 12/29/23 17:09 NEEDED PRN Maintain IV Site ORDERS Category Date Time Status Type and Screen Stat BBK 11/29/23 17:00 Received CBC w/Auto Diff [Complete Blood Count Auto Diff] Stat Lab 11/29/23 17:00 Completed CMP [Comprehensive Metabolic Panel] Stat Lab 11/29/23 17:00 Completed PT/PTT Stat Lab 11/29/23 17:00 Completed Medical Decision Narrative: Patient is a 72-year-old male here with above history and physical. Recently had a hemoglobin of 6.7 he refused posttransfusion labs also apparently has not had any post transfusion labs outpatient but was called by his primary care doctor and told to come to the emergency department today. He has had no worsening symptoms he does appear pale on my exam and states that his melena has been chronic secondary to iron infusions. He refused recent colonoscopy or endoscopy. Will recheck H&H get a type and screen and reassess. Reassessment 6:26 PM patient's labs unremarkable specifically hemoglobin is 10 no evidence of needing any type of transfusion. Patient to follow-up with primary care doctor as previously instructed Critical Care Critical Care Time Critical Care Time: No
[2023-11-29 16:51] VITALS: BP 96/72; PULSE 69; RESP 20; TEMP 37.2; O2SAT 99; BMI 27.4
[2023-11-29 17:21] LABS: Basophils % 0.7 % (0.1-2.0); Eosinophils # 0.3 K/mm3 (0.0-0.4); Eosinophils % 4.6 % (0.1-12.0); Hematocrit 34.5 % (42.0-52.0); Hemoglobin 10.4 g/dL (14.1-18.0); Lymphocytes # 1.3 K/mm3 (0.7-4.5); Lymphocytes % 23.7 % (10-50); Mean Corpuscular Hemoglobin 27.3 pg (27.0-31.2); Mean Corpuscular Volume 91.1 fl (80-94); Mean Platelet Volume 8.3 fl (7.4-10.4); Monocytes # 0.3 K/mm3 (0.1-1.0); Monocytes % 4.4 % (1.7-9.3); Neutrophils # 3.7 K/mm3 (1.8-7.8); Neutrophils % 66.7 % (37.0-80.0); Platelet Count 238 K/mm3 (142-424); Red Blood Count 3.79 M/mm3 (4.60-6.20); White Blood Count 5.6 K/mm3 (4.8-10.8)
[2023-11-29 17:30] VITALS: BP 130/68; PULSE 65; O2SAT 98
--- NOTE | 2023-11-29 17:30 | PC.NURSE ---
Dr. Tubbs at [facility] to update pt on results
[2023-11-29 17:45] LABS: Chloride 105 mmol/L (98-107); Potassium 3.2 mmoL/L (3.5-5.1); Sodium 141 mmol/L (136-145)
[2023-11-29 17:47] LABS: Blood Urea Nitrogen 5 mg/dl (9-20); Creatinine Clearance Estimated 74 mL/min (50-200); Estimated Glomerular Filt Rate 133 ml/min (>60); GFR (African American) 161 ML/MIN (>60)
[2023-11-29 17:48] LABS: Alanine Aminotransferase 13 U/L (12-78); Albumin Level 4.3 g/dl (3.5-5.0); Albumin/Globulin Ratio 1.5 (1.1-1.8); Alkaline Phosphatase 87 U/L (38-126); Anion Gap 8.2 mEq/L (5-15); Aspartate Amino Transferase 41 U/L (17-59); Bilirubin,Total 1.6 mg/dl (0.2-1.3); Calcium 8.7 mg/dl (8.4-10.2); Carbon Dioxide 31 mmol/L (22.0-30.0); Globulin 2.9 g/dL (1.3-3.2); Glucose 140 mg/dl (74-100); Total Protein,Serum 7.2 g/dl (6.3-8.2)
[2023-11-29 17:51] LABS: Activated Partial Thrombo Time 27.7 seconds (22.8-30.6); INR 1.06 (0.9-1.1); Prothrombin Time 11.4 seconds (10.1-12.5)
[2023-11-29 18:00] VITALS: BP 118/69; PULSE 69; O2SAT 97
[2023-11-29 18:29] VITALS: BP 126/78; PULSE 64; RESP 20; TEMP 37.2; O2SAT 97
== END 2023-11-29 18:29 | disposition home or self-care (01) ==
PROVIDERS: Emergency Provider Student in an Organized Health Care Education/Training Program; PCP Family Medicine
DX: E87.6 Hypokalemia (principal); D64.9 Anemia, unspecified; K21.9 Gastro-esophageal reflux disease without esophagitis; I10 Essential (primary) hypertension; E11.9 Type 2 diabetes mellitus without complications; Z79.84 Long term (current) use of oral hypoglycemic drugs
CPT/HCPCS: 36415; 80053; 85025; 85610; 85730; 86850; 99284

== ENCOUNTER 2023-12-11 01:26 | Emergency (ER) | payer MEDICARE, SELFPAY ==
--- NOTE | 2023-12-11 01:29 | ECG_ITS ---
APPROVED REPORT Exam: Resting ECG HR:64 bpm ECG Measurements Heart Rate 64 AXES NV 165 P 66 QRSd 80 QRS 83 QT 431 T 17 QTc 440 Conclusion SINUS RHYTHM NORMAL ECG UNCONFIRMED REPORT Electronically signed by : FROYLAN CASTILLO, 12/11/2023 01:54:47
[2023-12-11 01:31] VITALS: BP 158/72; PULSE 64; O2SAT 100
--- NOTE | 2023-12-11 01:33 | XR_ITS ---
PROCEDURE INFORMATION: Exam: XR Left Forearm Exam date and time: 12/11/2023 1:35 AM Age: 73 years old Clinical indication: Pain; Lower or forearm; Left; Additional info: Fall from standing, skin tear TECHNIQUE: Imaging protocol: Radiologic exam of the left forearm. Views: 2 views. COMPARISON: No relevant prior studies available. FINDINGS: Bones/joints: Possible nondisplaced fracture of the distal humeral metaphyseal region only seen on the AP view. No other acute fracture seen. Soft tissues: Normal. IMPRESSION: Potential nondisplaced distal humerus fracture. Advise x-ray of the left elbow for better assessment.
--- NOTE | 2023-12-11 01:33 | XR_ITS ---
PROCEDURE INFORMATION: Exam: XR Right Knee Exam date and time: 12/11/2023 1:35 AM Age: 73 years old Clinical indication: Pain; Knee; Right; Additional info: Fall from standing, R knee pain TECHNIQUE: Imaging protocol: Radiologic exam of the right knee. Views: 1 or 2 views. COMPARISON: DX (TOE LAT, TOE, TOE LAT) 03/16/2019 10:32 AM FINDINGS: Bones/joints: Normal. No fracture evident. Soft tissues: Normal. IMPRESSION: No acute findings.
[2023-12-11 01:43] VITALS: BP 158/72; PULSE 66; RESP 18; TEMP 36.5; O2SAT 99; BMI 28.0
--- NOTE | 2023-12-11 01:49 | ED_ITS ---
Discharge Plan Disposition Patient Disposition: Home, Self-Care Condition: Good Chief Complaint: Fall Prescriptions Prescriptions: No Action meclizine 25 mg tablet 25 mg PO DAILY 30 Days Qty: 90 Patient Comments: gabapentin 800 mg tablet 800 mg PO BID 30 Days Qty: 90 Patient Comments: carvedilol 12.5 mg tablet 12.5 mg PO BID 90 Days Qty: 180 Patient Comments: atorvastatin 80 mg tablet 80 mg PO DAILY 90 Days Qty: 90 Patient Comments: losartan 25 mg tablet 25 mg PO DAILY 90 Days Qty: 90 Patient Comments: glimepiride 1 mg tablet 1 mg PO DAILY 90 Days Qty: 90 Patient Comments: pantoprazole 40 mg tablet,delayed release (DR/EC) 40 mg PO DAILY 90 Days Qty: 90 Patient Comments: take 1 tablet by mouth once daily clopidogrel 75 mg tablet 75 mg PO DAILY 90 Days Qty: 90 Patient Comments: take 1 tablet by mouth once daily acetaminophen-codeine 300-15 mg tablet 1 tab PO Q4HP PRN (Reason: Moderate Pain (Scale Score 5-6)) benzonatate [benzonatate] 100 mg capsule 100 mg PO TIDP PRN (Reason: Cough) Qty: 30 0RF guaifenesin [Mucinex] 600 mg tablet extended release 12hr 600 - 1,200 mg PO BIDP PRN (Reason: Congestion) Qty: 30 0RF furosemide 40 MG tablet 40 mg PO BID aspirin 325 MG tablet 325 mg PO DAILY carbidopa-levodopa 25-100 mg tablet extended release 1 tab PO BID Patient Comments: TAKE 1 TABLET BY MOUTH TWICE DAILY temazepam 30 mg capsule 30 mg PO HS PRN (Reason: Sleep) Patient Comments: TAKE 1 CAPSULE BY MOUTH AT NIGHT NEEDED FOR SLEEP Referrals Follow up/Referrals: Provider,Referral, MD [Primary Care Provider] - See instructions Clinical Impressions Clinical Impression: Fall as cause of accidental injury at home as place of occurrence, Arm pain, left, Knee pain Discharge ED Provider: Ankita Wade Adult HPI General Chief complaint: Fall Stated complaint: fall Time Seen by Provider: 12/11/23 01:33 History of Present Illness HPI narrative: Patient is a 73-year-old male with past medical history GERD, iron deficiency anemia, hypertension, diabetes, dizziness presenting after fall from standing. Patient states that he took his nightly medications that helped him sleep and got up to go to bed and and getting up felt slightly lightheaded and fell down. He protected his head with his left forearm with subsequent skin tear and bleeding. He is on Plavix. He did not hit his head and did not pass out, he has a history of dizziness for which he does take an daily medication and he did take this as well tonight. He denies any nausea or vomiting, chest pain, shortness of breath, abdominal pain, fevers, current lightheadedness. He did injure his left forearm and right knee and laid on the floor for about an hour and a half before he was able to get himself up despite calling for the neighbor. No one was able to drive him in and so he drove himself but was driving very slowly and was pulled over by who presents with patient for further evaluation. Police states he is not under arrest but was pulled over for possible DUI and found him to be trying to come in to the hospital to be seen. Related Data Home Medications Medication Instructions Recorded Confirmed atorvastatin 80 mg tablet 80 mg PO DAILY High cholesterol 11/03/17 11/17/23 days ##90 carvedilol 12.5 mg tablet 12.5 mg PO BID High Blood Pressure 11/03/17 11/17/23 90 days ##180 clopidogrel 75 mg tablet 75 mg PO DAILY Platelet Inhibitor 11/03/17 11/17/23 90 days ##90 gabapentin 800 mg tablet 800 mg PO BID Pain 30 days ##90 11/03/17 11/17/23 glimepiride 1 mg tablet 1 mg PO DAILY Diabetes 90 days ##90 11/03/17 11/17/23 losartan 25 mg tablet 25 mg PO DAILY . 90 days ##90 11/03/17 11/17/23 meclizine 25 mg tablet 25 mg PO DAILY dizziness 30 days 11/03/17 11/17/23 ##90 pantoprazole 40 mg tablet,delayed 40 mg PO DAILY Acid Reflux 90 days 11/03/17 11/17/23 release ##90 aspirin 325 mg tablet 325 mg PO DAILY Heart Health 03/01/18 11/17/23 furosemide 40 mg tablet 40 mg PO BID Fluid 03/01/18 11/17/23 acetaminophen 300 mg-codeine 15 mg 1 tab PO Q4HP PRN Moderate Pain 07/10/18 11/17/23 tablet (Scale Score 5-6) carbidopa ER 25 mg-levodopa 100 mg 1 tab PO BID 11/17/23 11/17/23 tablet,extended release temazepam 30 mg capsule 30 mg PO HS PRN Sleep 11/17/23 11/17/23 Previous Rx's Medication Instructions Recorded benzonatate 100 mg capsule 100 mg PO TIDP PRN Cough #30 caps 08/26/23 guaifenesin 600 mg tablet, 600 - 1,200 mg (1 - 2 x 600 mg) PO 08/26/23 extended release 12 hr (Mucinex) BIDP PRN Congestion #30 tabs Allergies Allergy/AdvReac Type Severity Reaction Status Date / Time No Known Drug Allergies Allergy Unknown Verified 01/08/19 13:56 [NKDA] [facility] Disclaimer: The information contained in this section may have been updated after the patient was seen, as this information can be updated by other users. Medical History (Updated 12/11/23 @ 03:21 by Ankita Wade MD) Hypertension Diabetes GERD (gastroesophageal reflux disease) Surgical History (Updated 11/17/23 @ 02:26 by Jacquelin Valera RN) History of open heart surgery Social History (Updated 11/17/23 @ 03:29 by Jacquelin Valera RN) Smoking Status: Former smoker alcohol intake: former current occupational status: disabled Travel in the last 8 weeks: None housing: house lives independently: Yes marital status: service: Yes ([place] ) status: retired branch: [employer] current occupational exposures/hazards: No ROS Obtained: Yes Systems reviewed as appropriate & no additional complaints except as documented Physical Exam General General appearance: alert and in no apparent distress Head Head exam: atraumatic and normocephalic Eye Eye exam: Present PERRL and EOMI ENT ENT exam: Present mucous membranes moist Neck Neck exam: Present normal inspection and full ROM; Absent tenderness Chest Chest inspection: Present normal inspection and symmetric chest wall rise; Absent tenderness Respiratory Respiratory exam: Present normal lung sounds bilaterally; Absent respiratory distress Cardiovascular Cardiovascular exam: Present regular rate and normal rhythm Abdominal Exam Abdominal exam: Present soft; Absent distention or tenderness Extremities Exam Extremities exam: Present normal inspection, full ROM and other (Tender to palpation over right knee and left proximal forearm with skin tear over proximal forearm but hemostatic on exam, 1+ pulses and neurovascularly intact distal to injury, no visible deformities) Neurological Exam Neurological exam: Present alert and oriented X3 Skin Skin exam: Present warm and dry Medical Decision Making Medical Records Medical records reviewed: Yes I reviewed the patient's medical records. Jose Rafael Inquiry Pt receiving controlled substance: No Vital Signs: 12/11/23 01:31 12/11/23 01:43 12/11/23 02:00 Temperature 97.7 F Temperature Source Oral Pulse Rate 64 62 Pulse Rate [Left Radial] 66 Respiratory Rate 18 17 Blood Pressure 158/72 H 143/61 H Blood Pressure [Right Arm] 158/72 H Blood Pressure Mean [Right Arm] 100 Blood Pressure Source [Right Arm] Automatic Cuff Blood Pressure Position [Right Arm] Sitting 02 Sat by Pulse Oximetry 100 99 97 Oxygen Delivery Method Room Air 12/11/23 02:30 Temperature Temperature Source Pulse Rate 57 L Pulse Rate [Left Radial] Respiratory Rate 13 Blood Pressure 153/61 H Blood Pressure [Right Arm] Blood Pressure Mean [Right Arm] Blood Pressure Source [Right Arm] Blood Pressure Position [Right Arm] 02 Sat by Pulse Oximetry 100 Oxygen Delivery Method Lab Data Lab results reviewed: Yes I reviewed the patient's lab results. Lab Results 12/11/23 01:51: WBC 6.2, RBC 3.80 L, Hgb 10.9 L, Hct 35.1 L, MCV 92.5, MCH 28.6, MCHC 30.9 L, RDW 20.8 H, Plt Count 207, MPV 8.4, Neut % (Auto) 64.4, Lymph % (Auto) 25.7, [place] % (Auto) 5.4, Eos % (Auto) 3.8, Baso % (Auto) 0.7, Neut # (Auto) 4.0, Lymph # (Auto) 1.6, [place] # (Auto) 0.3, Eos # (Auto) 0.2, Baso # (Auto) 0.0, Sodium 140, Potassium 3.5, Chloride 106, Carbon Dioxide 27, Anion Gap 10.5, BUN 12, Creatinine 0.60 L, Estimated Creat Clear 75, Estimated GFR 132, Est GFR ( Amer) 160, Glucose 125 H, Calcium 8.7, Total Bilirubin 1.2, AST 44, ALT 26, Alkaline Phosphatase 90, Total Creatine Kinase 40 L, Total Protein 6.9, Albumin 4.1, Globulin 2.8, Albumin/Globulin Ratio 1.5 12/11/23 01:51 12/11/23 01:51 Orders (Tests/Meds): ED MEDICATIONS Discontinued Medications Generic Name Dose Route Start Last Admin Trade Name Yoandy PRN Reason Stop Dose Admin Tetanus/Reduced Diphtheria/Acell Pertussis 0.5 ml 12/11/23 01:35 12/11/23 01:50 Tet/Diphth/Pert-Adult 0.5ml Syringe IM 12/11/23 01:36 0.5 ml .ONCE ONE Administration ORDERS Category Date Time Status Elbow XR left mininum 3 views [XR elbow LT min 3V] Stat Exams 12/11/23 02:12 Completed Forearm XR left 2 views [XR forearm LT 2V] Stat Exams 12/11/23 01:33 Completed XR knee RT 2V Stat Exams 12/11/23 01:33 Completed CBC w/Auto Diff [Complete Blood Count Auto Diff] Stat Lab 12/11/23 01:51 Completed CMP [Comprehensive Metabolic Panel] Stat Lab 12/11/23 01:51 Completed Creatine Kinase Stat Lab 12/11/23 01:51 Completed Medical Decision Narrative: Patient is a 73-year-old male presenting 1 and half hour after fall from standing with subsequent skin tear and pain to the left forearm and right knee. He did lay on the floor for approximately 1 and half hours before he was able to get himself up. He is unsure of his last tetanus and will update today. He does note taking medications that make him very sleepy and when he got up to go to bed this evening he felt lightheaded causing him to fall. He did not pass out, did not hit his head, has no pain or tenderness over his midline C-spine, head exam is atraumatic and seems that the fall may have been provoked by overmedication. He does have a small skin tear over his left proximal forearm that is hemostatic. Some tenderness to left proximal forearm and right knee which we will image and obtain basic labs for further evaluation. EKG without acute ischemia or infarction, sinus rhythm. X-ray right knee showing no acute process, x-ray left forearm showing possible distal humerus fracture, recommended dedicated elbow film which was performed and shows no acute process but bony spurs. Hemoglobin is consistent with recent lab draw on 11/28, now 10.9 consistent with known anemia and CMP nonactionable. Did discuss patient's reassuring imaging and blood work and recommended close PCP follow-up which patient is agreeable. Discharged in stable condition. Critical Care Critical Care Time Critical Care Time: No
[2023-12-11] MEDS: TET/DIPHTH/PERT-ADULT 0.5ML SYRINGE 0.5 ML IM (01:50)
[2023-12-11 02:00] VITALS: BP 143/61; PULSE 62; RESP 17; O2SAT 97
[2023-12-11 02:03] LABS: Basophils % 0.7 % (0.1-2.0); Eosinophils # 0.2 K/mm3 (0.0-0.4); Eosinophils % 3.8 % (0.1-12.0); Hematocrit 35.1 % (42.0-52.0); Hemoglobin 10.9 g/dL (14.1-18.0); Lymphocytes # 1.6 K/mm3 (0.7-4.5); Lymphocytes % 25.7 % (10-50); Mean Corpuscular HGB Conc 30.9 g/dL (31.8-35.4); Mean Corpuscular Hemoglobin 28.6 pg (27.0-31.2); Mean Corpuscular Volume 92.5 fl (80-94); Mean Platelet Volume 8.4 fl (7.4-10.4); Monocytes # 0.3 K/mm3 (0.1-1.0); Monocytes % 5.4 % (1.7-9.3); Neutrophils % 64.4 % (37.0-80.0); Platelet Count 207 K/mm3 (142-424); Red Cell Distribution Width 20.8 % (11.5-17.5); White Blood Count 6.2 K/mm3 (4.8-10.8)
[2023-12-11 02:07] LABS: Chloride 106 mmol/L (98-107); Potassium 3.5 mmoL/L (3.5-5.1); Sodium 140 mmol/L (136-145)
[2023-12-11 02:09] LABS: Blood Urea Nitrogen 12 mg/dl (9-20); Creatinine Clearance Estimated 75 mL/min (50-200); Estimated Glomerular Filt Rate 132 ml/min (>60); GFR (African American) 160 ML/MIN (>60)
[2023-12-11 02:10] LABS: Alanine Aminotransferase 26 U/L (12-78); Albumin Level 4.1 g/dl (3.5-5.0); Albumin/Globulin Ratio 1.5 (1.1-1.8); Alkaline Phosphatase 90 U/L (38-126); Anion Gap 10.5 mEq/L (5-15); Aspartate Amino Transferase 44 U/L (17-59); Bilirubin,Total 1.2 mg/dl (0.2-1.3); Calcium 8.7 mg/dl (8.4-10.2); Carbon Dioxide 27 mmol/L (22.0-30.0); Creatine Kinase 40 U/L (55-170); Globulin 2.8 g/dL (1.3-3.2); Glucose 125 mg/dl (74-100); Total Protein,Serum 6.9 g/dl (6.3-8.2)
--- NOTE | 2023-12-11 02:12 | XR_ITS ---
PROCEDURE INFORMATION: Exam: XR Left Elbow Exam date and time: 12/11/2023 2:14 AM Age: 73 years old Clinical indication: Pain; Elbow; Left; Additional info: Fall from standing, proximal forearm pain TECHNIQUE: Imaging protocol: Radiologic exam of the left elbow. Views: 3 or more views. COMPARISON: CR XR FOREARM LT 2V 12/11/2023 1:35 AM FINDINGS: Bones/joints: Normal. No acute fracture identified. Olecranon process spurs. Soft tissues: Normal. IMPRESSION: No acute findings.
[2023-12-11 02:30] VITALS: BP 153/61; PULSE 57; RESP 13; O2SAT 100
[2023-12-11 03:45] VITALS: BP 153/61; PULSE 57; RESP 16; TEMP 36.5; O2SAT 100
== END 2023-12-11 03:46 | disposition home or self-care (01) ==
PROVIDERS: Emergency Provider Emergency Medicine
DX: M79.632 Pain in left forearm (principal); M25.561 Pain in right knee; S51.802A Unspecified open wound of left forearm, initial encounter; W18.30XA Fall on same level, unspecified, initial encounter; E11.9 Type 2 diabetes mellitus without complications; I10 Essential (primary) hypertension; K21.9 Gastro-esophageal reflux disease without esophagitis; D50.9 Iron deficiency anemia, unspecified; Z87.891 Personal history of nicotine dependence; Z79.84 Long term (current) use of oral hypoglycemic drugs; Z79.01 Long term (current) use of anticoagulants; Z23 Encounter for immunization
CPT/HCPCS: 73080; 73090; 73560; 80053; 82550; 85025; 90471; 90715; 93005; 99284

== ENCOUNTER 2024-04-11 18:24 | Emergency (ER) | payer MEDICARE, SELFPAY ==
[2024-04-11 18:26] VITALS: BP 137/88; PULSE 70; RESP 20; TEMP 36.6; O2SAT 99; BMI 28.2
--- NOTE | 2024-04-11 18:28 | ED_ITS ---
Discharge Plan Disposition Patient Disposition: Home, Self-Care Condition: Good Prescriptions Prescriptions: No Action meclizine 25 mg tablet 25 mg PO DAILY 30 Days Qty: 90 Patient Comments: gabapentin 800 mg tablet 800 mg PO BID 30 Days Qty: 90 Patient Comments: carvedilol 12.5 mg tablet 12.5 mg PO BID 90 Days Qty: 180 Patient Comments: atorvastatin 80 mg tablet 80 mg PO DAILY 90 Days Qty: 90 Patient Comments: losartan 25 mg tablet 25 mg PO DAILY 90 Days Qty: 90 Patient Comments: glimepiride 1 mg tablet 1 mg PO DAILY 90 Days Qty: 90 Patient Comments: pantoprazole 40 mg tablet,delayed release (DR/EC) 40 mg PO DAILY 90 Days Qty: 90 Patient Comments: take 1 tablet by mouth once daily clopidogrel 75 mg tablet 75 mg PO DAILY 90 Days Qty: 90 Patient Comments: take 1 tablet by mouth once daily acetaminophen-codeine 300-15 mg tablet 1 tab PO Q4HP PRN (Reason: Moderate Pain (Scale Score 5-6)) benzonatate [benzonatate] 100 mg capsule 100 mg PO TIDP PRN (Reason: Cough) Qty: 30 0RF guaifenesin [Mucinex] 600 mg tablet extended release 12hr 600 - 1,200 mg PO BIDP PRN (Reason: Congestion) Qty: 30 0RF furosemide 40 MG tablet 40 mg PO BID aspirin 325 MG tablet 325 mg PO DAILY carbidopa-levodopa 25-100 mg tablet extended release 1 tab PO BID Patient Comments: TAKE 1 TABLET BY MOUTH TWICE DAILY temazepam 30 mg capsule 30 mg PO HS PRN (Reason: Sleep) Patient Comments: TAKE 1 CAPSULE BY MOUTH AT NIGHT NEEDED FOR SLEEP Referrals Follow up/Referrals: Alexis Vallejo MD [Primary Care Provider] - See instructions Activity Restrictions/Add. Instructions Additional Instructions/Restrictions: Dr. Levi Vivas of vascular surgery wants to see you in his office on 04/16/2024 at 8:45 in the morning at his office on [facility] [address]. . Phone number is [phone]. follow-up with your PCP within 48 hours for recheck of your hematoma. Please mention that you had a pulmonary nodule seen on your imaging incidentally and make sure that that is followed or worked up further if it is not known. Please contact Dr. Blake office for follow-up in the morning as soon as possible. Clinical Impressions Clinical Impression: Hematoma and contusion, Atherosclerotic cardiovascular disease Syncope Qualifiers: Syncope type: unspecified Qualified Code(s): R55 - Syncope and collapse Instructions Patient Instructions: DI for Syncope in Adults (Fainting), DI for Hematoma (Bruise) Print Language Print Language: Nepali Discharge ED Provider: Bao Jenkins General Adult HPI <NICKIE García - Last Filed: 04/11/24 21:21> General Chief complaint: Fall Stated complaint: AO04/10 fall , RT arm ,rib pain Time Seen by Provider: 04/11/24 18:27 History of Present Illness HPI narrative: Patient presents for evaluation of a fall injury. Patient states that he was walking through his house tripped over his foot falling onto his drum kit. He was able to get up by himself and get to a chair however he tells me he then passed out. This occurred last night. He presents today for increasing pain in the right chest wall. Patient has a significant cardiovascular history and is currently on aspirin Plavix due to previous coronary artery bypass graft. He denies any headache fever chills nausea vomiting diarrhea hemoptysis hematochezia melena difficulty breathing. Related Data Home Medications ?Medication ?Instructions ?Recorded ?Confirmed atorvastatin 80 mg tablet 80 mg PO DAILY High cholesterol 90 11/03/17 11/17/23 days ##90 carvedilol 12.5 mg tablet 12.5 mg PO BID High Blood Pressure 11/03/17 11/17/23 90 days ##180 clopidogrel 75 mg tablet 75 mg PO DAILY Platelet Inhibitor 11/03/17 11/17/23 90 days ##90 gabapentin 800 mg tablet 800 mg PO BID Pain 30 days ##90 11/03/17 11/17/23 glimepiride 1 mg tablet 1 mg PO DAILY Diabetes 90 days ##90 11/03/17 11/17/23 losartan 25 mg tablet 25 mg PO DAILY . 90 days ##90 11/03/17 11/17/23 meclizine 25 mg tablet 25 mg PO DAILY dizziness 30 days 11/03/17 11/17/23 ##90 pantoprazole 40 mg tablet,delayed 40 mg PO DAILY Acid Reflux 90 days 11/03/17 11/17/23 release ##90 aspirin 325 mg tablet 325 mg PO DAILY Heart Health 03/01/18 11/17/23 furosemide 40 mg tablet 40 mg PO BID Fluid 03/01/18 11/17/23 acetaminophen 300 mg-codeine 15 mg 1 tab PO Q4HP PRN Moderate Pain 07/10/18 11/17/23 tablet (Scale Score 5-6) carbidopa ER 25 mg-levodopa 100 mg 1 tab PO BID 11/17/23 11/17/23 tablet,extended release temazepam 30 mg capsule 30 mg PO HS PRN Sleep 11/17/23 11/17/23 Previous Rx's ?Medication ?Instructions ?Recorded benzonatate 100 mg capsule 100 mg PO TIDP PRN Cough #30 caps 08/26/23 guaifenesin 600 mg tablet, 600 - 1,200 mg (1 - 2 x 600 mg) PO 08/26/23 extended release 12 hr (Mucinex) BIDP PRN Congestion #30 tabs Allergies Allergy/AdvReac Type Severity Reaction Status Date / Time No Known Drug Allergies Allergy Unknown Verified 01/08/19 13:56 [NKDA] [facility] <NICKIE García - Last Filed: 04/11/24 21:21> [facility] Disclaimer: The information contained in this section may have been updated after the patient was seen, as this information can be updated by other users. Medical History (Updated 04/11/24 @ 21:09 by NICKIE García) Hypertension Diabetes GERD (gastroesophageal reflux disease) Surgical History (Updated 11/17/23 @ 02:26 by Jacquelin Valera RN) History of open heart surgery Social History (Updated 11/17/23 @ 03:29 by Jacquelin Valera RN) Smoking Status: Never smoker alcohol intake: former current occupational status: disabled Travel in the last 8 weeks: None housing: house lives independently: Yes marital status: service: Yes ([place] ) status: retired branch: [employer] current occupational exposures/hazards: No <NICKIE García - Last Filed: 04/11/24 21:21> ROS Obtained: Yes Systems reviewed as appropriate & no additional complaints except as documented Physical Exam <NICKIE García - Last Filed: 04/11/24 21:21> General General appearance: alert and in no apparent distress Neck Neck exam: Present lymphadenopathy Chest Chest inspection: Present symmetric chest wall rise and tenderness; Absent normal inspection (Patient has ecchymosis in the right axilla and along the right lateral chest wall without any bony deformity.'s very tender to palpation.) Respiratory Respiratory exam: Present normal lung sounds bilaterally; Absent respiratory distress, wheezes, stridor or accessory muscle use Cardiovascular Cardiovascular exam: Present regular rate and normal rhythm Abdominal Exam Abdominal exam: Present soft and normal bowel sounds; Absent tenderness, guarding, rebound or rigidity Extremities Exam Extremities exam: Present normal inspection and full ROM; Absent tenderness Back Exam Back exam: Present normal inspection and full ROM; Absent tenderness Neurological Exam Neurological exam: Present alert and oriented X3 Medical Decision Making <NICKIE García - Last Filed: 04/11/24 21:21> Medical Records Medical records reviewed: Yes I reviewed the patient's medical records. Jose Rafael Inquiry Pt receiving controlled substance: No Vital Signs: 04/11/24 18:26 04/11/24 18:37 04/11/24 21:30 Temperature 97.9 F 98.2 F Temperature Source Oral Oral Pulse Rate 72 78 Pulse Rate [Right Radial] 70 Respiratory Rate 20 19 Blood Pressure 137/88 150/90 H Blood Pressure [Right Arm] 137/88 Blood Pressure Mean [Right Arm] 104 Blood Pressure Source Manual Cuff/ Auscultation Blood Pressure Position Sitting 02 Sat by Pulse Oximetry 99 99 Oxygen Delivery Method Room Air Room Air Lab Data Lab results reviewed: Yes I reviewed the patient's lab results. Lab Results 04/11/24 18:40: WBC 7.9, RBC 3.80 L, Hgb 11.5 L, Hct 37.3 L, MCV 98.2 H, MCH 30.2, MCHC 30.8 L, RDW 14.9, Plt Count 272, MPV 7.9, Neut % (Auto) 63.8, Lymph % (Auto) 25.4, Osborne % (Auto) 6.1, Eos % (Auto) 4.1, Baso % (Auto) 0.5, Neut # (Auto) 5.0, Lymph # (Auto) 2.0, Osborne # (Auto) 0.5, Eos # (Auto) 0.3, Baso # (Auto) 0.0, Sodium 140, Potassium 4.0, Chloride 105, Carbon Dioxide 29, Anion Gap 10.0, BUN 11, Creatinine 0.60 L, Estimated Creat Clear 75, Estimated GFR 132, Est GFR ( Amer) 160, Glucose 70 L, Calcium 8.6, Total Bilirubin 1.2, AST 43, ALT 12, Alkaline Phosphatase 70, Total Protein 7.5, Albumin 4.4, Globulin 3.1, Albumin/Globulin Ratio 1.4 04/11/24 18:57: PT 11.3, INR 1.01, Blood Type A Negative, Antibody Screen Negative 04/11/24 18:40 04/11/24 18:40 Orders (Tests/Meds): ED MEDICATIONS Discontinued Medications Generic Name Dose Route Start Last Admin Trade Name Freq PRN Reason Stop Dose Admin Acetaminophen 1,000 mg 04/11/24 18:36 04/11/24 18:43 Acetaminophen 1,000mg/100ml Vial IV 04/11/24 18:37 1,000 mg ONCE ONE Administration Lactated Ringer's 1,000 mls @ 999 mls/hr 04/11/24 18:36 04/11/24 18:43 Lactated Ringer's 1000 Ml Bag IV 04/11/24 19:36 999 mls/hr .Q1H1M ONE Administration Iopamidol 160 ml 04/11/24 19:47 04/11/24 19:49 Iopamidol-370 (76%);100ml Bottle IV 04/11/24 19:48 160 ml ONCE ONE Administration Sodium Chloride 10 ml 04/11/24 19:47 04/11/24 19:49 Sodium Chloride 0.9% 10ml Syr (Rad Only) IV 04/11/24 19:48 10 ml ONCE ONE Administration Sodium Chloride 50 ml 04/11/24 19:47 04/11/24 19:49 0.9 % Sodium Chloride 50 Ml Vial IV 04/11/24 19:48 50 ml ONCE ONE Administration Sodium Chloride 50 ml 04/11/24 19:48 04/11/24 19:49 0.9 % Sodium Chloride 50 Ml Vial IV 04/11/24 19:49 50 ml ONCE ONE Administration ORDERS Category Date Time Status Type and Screen Stat BBK 04/11/24 18:[address] angio abdomen pelvis Stat Cat Scan 04/11/24 18:[address] angio chest - dissection Stat Cat Scan 04/11/24 18:[address] angio head Stat Cat Scan 04/11/24 18:[address] angio neck Stat Cat Scan 04/11/24 18:[address] cervical spine wo con Stat Cat Scan 04/11/24 18:[address] head/brain wo con Stat Cat Scan 04/11/24 18:[address] lumbar spine wo con Stat Cat Scan 04/11/24 18:[address] thoracic spine wo con Stat Cat Scan 04/11/24 18:38 Completed CBC w/Auto Diff [Complete Blood Count Auto Diff] Stat Lab 04/11/24 18:40 Completed CMP [Comprehensive Metabolic Panel] Stat Lab 04/11/24 18:40 Completed INR [Prothrombin Time INR] Stat Lab 04/11/24 18:57 Completed Medical Decision Narrative: In summary patient is a 73-year-old male who presents to the emergency department for evaluation of fall injury. Patient is hemodynamically stable upon arrival, afebrile. Physical exam is remarkable for significant chest wall ecchymosis on the right including the right axilla but without any bony deformity, normal breath sounds but tenderness to palpation along the right lateral chest wall. Patient reports that he did pass out after extricating himself from the drum set and sitting down in a recliner.. Differential diagnosis includes hematoma versus rib fracture versus intrathoracic injury versus spinal injury versus head injury versus stroke etc. Initial workup will be conducted with hematologic labs CT scan of the spine without contrast CTA of the head neck and chest. Initial interventions include crystalloid bolus Toradol only. Initial workup reviewed by me shows his hematologic labs are nonactionable. CT imaging of the spine via my informal interpretation shows no acute fracture. Radiology reports patient has several areas of concern on his CTAs of critical stenosis of the bilateral ICAs, severe left vertebral artery origin and subclavian artery origin stenosis, near occlusive stenosis of the left ECA origin and mild right ECA origin stenosis, mild left common carotid artery origin stenosis and a 10 mm noncalcified left upper lobe nodule. Upon repeat evaluation reported somewhat improvement in his discomfort after initial intervention.. Given this I had interactive discussion with the patient regarding the CT findings and he does already see vascular surgery at [facility]. Given this we have had an interactive discussion with Dr. Vivas of vascular surgery at [facility] about patient management and he wants to see the patient in his office on 04/16/2024 at 8:45 in the morning. Phone number is [phone]. <Bao Jenkins MD - Last Filed: 04/11/24 21:43> Vital Signs: 04/11/24 18:26 04/11/24 18:37 04/11/24 21:30 Temperature 97.9 F 98.2 F Temperature Source Oral Oral Pulse Rate 72 78 Pulse Rate [Right Radial] 70 Respiratory Rate 20 19 Blood Pressure 137/88 150/90 H Blood Pressure [Right Arm] 137/88 Blood Pressure Mean [Right Arm] 104 Blood Pressure Source Manual Cuff/ Auscultation Blood Pressure Position Sitting 02 Sat by Pulse Oximetry 99 99 Oxygen Delivery Method Room Air Room Air Lab Data Lab Results 04/11/24 18:40: WBC 7.9, RBC 3.80 L, Hgb 11.5 L, Hct 37.3 L, MCV 98.2 H, MCH 30.2, MCHC 30.8 L, RDW 14.9, Plt Count 272, MPV 7.9, Neut % (Auto) 63.8, Lymph % (Auto) 25.4, Osborne % (Auto) 6.1, Eos % (Auto) 4.1, Baso % (Auto) 0.5, Neut # (Auto) 5.0, Lymph # (Auto) 2.0, Osborne # (Auto) 0.5, Eos # (Auto) 0.3, Baso # (Auto) 0.0, Sodium 140, Potassium 4.0, Chloride 105, Carbon Dioxide 29, Anion Gap 10.0, BUN 11, Creatinine 0.60 L, Estimated Creat Clear 75, Estimated GFR 132, Est GFR ( Amer) 160, Glucose 70 L, Calcium 8.6, Total Bilirubin 1.2, AST 43, ALT 12, Alkaline Phosphatase 70, Total Protein 7.5, Albumin 4.4, Globulin 3.1, Albumin/Globulin Ratio 1.4 04/11/24 18:57: PT 11.3, INR 1.01, Blood Type A Negative, Antibody Screen Negative Orders (Tests/Meds): ED MEDICATIONS Discontinued Medications Generic Name Dose Route Start Last Admin Trade Name Freq PRN Reason Stop Dose Admin Acetaminophen 1,000 mg 04/11/24 18:36 04/11/24 18:43 Acetaminophen 1,000mg/100ml Vial IV 04/11/24 18:37 1,000 mg ONCE ONE Administration Lactated Ringer's 1,000 mls @ 999 mls/hr 04/11/24 18:36 04/11/24 18:43 Lactated Ringer's 1000 Ml Bag IV 04/11/24 19:36 999 mls/hr .Q1H1M ONE Administration Iopamidol 160 ml 04/11/24 19:47 04/11/24 19:49 Iopamidol-370 (76%);100ml Bottle IV 04/11/24 19:48 160 ml ONCE ONE Administration Sodium Chloride 10 ml 04/11/24 19:47 04/11/24 19:49 Sodium Chloride 0.9% 10ml Syr (Rad Only) IV 04/11/24 19:48 10 ml ONCE ONE Administration Sodium Chloride 50 ml 04/11/24 19:47 04/11/24 19:49 0.9 % Sodium Chloride 50 Ml Vial IV 04/11/24 19:48 50 ml ONCE ONE Administration Sodium Chloride 50 ml 04/11/24 19:48 04/11/24 19:49 0.9 % Sodium Chloride 50 Ml Vial IV 04/11/24 19:49 50 ml ONCE ONE Administration ORDERS Category Date Time Status Type and Screen Stat BBK 04/11/24 18:[address] angio abdomen pelvis Stat Cat Scan 04/11/24 18:[address] angio chest - dissection Stat Cat Scan 04/11/24 18:[address] angio head Stat Cat Scan 04/11/24 18:[address] angio neck Stat Cat Scan 04/11/24 18:[address] cervical spine wo con Stat Cat Scan 04/11/24 18:[address] head/brain wo con Stat Cat Scan 04/11/24 18:[address] lumbar spine wo con Stat Cat Scan 04/11/24 18:[address] thoracic spine wo con Stat Cat Scan 04/11/24 18:38 Completed CBC w/Auto Diff [Complete Blood Count Auto Diff] Stat Lab 04/11/24 18:40 Completed CMP [Comprehensive Metabolic Panel] Stat Lab 04/11/24 18:40 Completed INR [Prothrombin Time INR] Stat Lab 04/11/24 18:57 Completed ECG Data Tracing #1: I reviewed this ECG and interpreted as documented below: (Sinus rhythm 62 beats a minute no ST or T wave changes concerning for acute schema. AL, QRS, QT intervals 166, 93, 426 respectively. Good R wave progression in the precordial leads. Buhler normal) Medical Decision Narrative: In summary patient is a 73-year-old male who presents to the emergency department for evaluation of fall injury. Patient is hemodynamically stable upon arrival, afebrile. Physical exam is remarkable for significant chest wall ecchymosis on the right including the right axilla but without any bony deformity, normal breath sounds but tenderness to palpation along the right lateral chest wall. Patient reports that he did pass out after extricating himself from the drum set and sitting down in a recliner.. Differential diagnosis includes hematoma versus rib fracture versus intrathoracic injury versus spinal injury versus head injury versus stroke etc. Initial workup will be conducted with hematologic labs CT scan of the spine without contrast CTA of the head neck and chest. Initial interventions include crystalloid bolus Toradol only. Initial workup reviewed by me shows his hematologic labs are nonactionable. CT imaging of the spine via my informal interpretation shows no acute fracture. Radiology reports patient has several areas of concern on his CTAs of critical stenosis of the bilateral ICAs, severe left vertebral artery origin and subclavian artery origin stenosis, near occlusive stenosis of the left ECA origin and mild right ECA origin stenosis, mild left common carotid artery origin stenosis and a 10 mm noncalcified left upper lobe nodule. Upon repeat evaluation reported somewhat improvement in his discomfort after initial intervention.. Given this I had interactive discussion with the patient regarding the CT findings and he does already see vascular surgery at [facility]. Given this we have had an interactive discussion with Dr. Vivas of vascular surgery at [facility] about patient management and he wants to see the patient in his office on 04/16/2024 at 8:45 in the morning. Phone number is [phone]. I independently evaluated, examined, spoke the patient. Patient asymptomatic at this time other than bruising about his chest wall and right flank. Neurologically intact. No acute complaints otherwise. Workup independently interpreted and nonactionable hematologic workup. Troponins negative. Patient's trauma scans independently interpreted. He has severe multivessel stenosis of origins of multiple vessels just distal to aorta. These include vertebral arteries, subclavian arteries, external carotid arteries. I had independent conversation with vascular surgery, Dr. Vivas, at [facility], he would like to see patient 04/16 for potential operative intervention. I feel this is appropriate given patient is completely asymptomatic at this time. I also had further conversation with patient, he states that it felt like he just nodded off as I always do. Because patient at baseline without signs or symptoms of clinical decompensation, deemed appropriate for discharge. Results were relayed to patient who voiced understanding and were agreeable to outpatient management and follow up. I discussed my clinical impression with patient and answered all questions. At this time, the evidence for any other entities in the differential is insufficient to warrant any further testing or ED observation. This was explained as well. Advisory was given that persistent or worsening symptoms require further evaluation. I confirmed the understanding of this discussion. I was consulted by the DION, and we discussed the complexity of the problems being addressed. I approved the treatment and management plan for this patient's care in the Emergency Department, thus performing a substantive portion of the medical decision making. Bao Jenkins MD Critical Care <NICKIE García - Last Filed: 04/11/24 21:21> Critical Care Time Critical Care Time: No
[2024-04-11 18:37] VITALS: BP 137/88; PULSE 72; O2SAT 99
--- NOTE | 2024-04-11 18:38 | CT_ITS ---
PROCEDURE INFORMATION: Exam: CTA Abdomen and Pelvis With Contrast Exam date and time: 04/11/2024 7:49 PM Age: 73 years old Clinical indication: Injury or trauma; Fall; Other: Pain; Additional info: Trauma, critical injury suspected TECHNIQUE: Imaging protocol: Computed tomographic angiography of the abdomen and pelvis with contrast. Exam focused on the arteries. 3D rendering (Not supervised by radiologist): MIP and/or 3D reconstructed images were created by the technologist. Radiation optimization: All CT scans at this facility use at least one of these dose optimization techniques: automated exposure control; mA and/or kV adjustment per patient size (includes targeted exams where dose is matched to clinical indication); or iterative reconstruction. Contrast material: ISOVUE; Contrast volume: 80 ml; Contrast route: INTRAVENOUS (IV); COMPARISON: CT ANGIO CHEST 11/04/2024 19:49 FINDINGS: Diaphragm: Small hiatal hernia. Aorta: No aortic aneurysm. No aortic dissection. Celiac trunk and mesenteric arteries: No occlusion or significant stenosis. Renal arteries: No occlusion or significant stenosis. Right iliac arteries: No occlusion or significant stenosis. Left iliac arteries: No occlusion or significant stenosis. Other arteries: The arteries demonstrate severe atherosclerotic disease. Liver: Hepatic steatosis and cirrhosis. Gallbladder and biliary ducts: Cholelithiasis. Pancreas: Unremarkable. No mass. No ductal dilation. Spleen: Unremarkable. No splenomegaly. Adrenal glands: Unremarkable. No mass. Kidneys and ureters: Unremarkable. No solid mass. No hydronephrosis. Stomach and bowel: Unremarkable. No obstruction. No mucosal thickening. Appendix: No evidence of appendicitis. Intraperitoneal space: Unremarkable. No free air. No significant fluid collection. Lymph nodes: Unremarkable. No enlarged lymph nodes. Urinary bladder: Unremarkable. No mass. Reproductive: Unremarkable as visualized. Bones/joints: The lumbar spine demonstrates moderate degenerative changes at multiple levels. Soft tissues: Tiny fat containing umbilical hernia. Mild edema in the right side of the anterior abdominal wall. Other findings: Please see separate report for CT chest. IMPRESSION: 1. No acute intra-abdominal or intrapelvic organ injury. 2. Hepatic steatosis and cirrhosis. 3. Cholelithiasis.
--- NOTE | 2024-04-11 18:38 | CT_ITS ---
PROCEDURE INFORMATION: Exam: CT Lumbar Spine Without Contrast Exam date and time: 04/11/2024 7:41 PM Age: 73 years old Clinical indication: Injury or trauma; Fall; Additional info: Trauma, critical injury suspected TECHNIQUE: Imaging protocol: Computed tomography of the lumbar spine without contrast. Radiation optimization: All CT scans at this facility use at least one of these dose optimization techniques: automated exposure control; mA and/or kV adjustment per patient size (includes targeted exams where dose is matched to clinical indication); or iterative reconstruction. COMPARISON: CT THORACIC SPINE WO CON 11/04/2024 19:38 FINDINGS: Bones/joints: L1 vertebral hemangioma. Degenerative changes at L4-L5 produce severe spinal stenosis. Degenerative changes at L3-L4 produce moderate to severe spinal stenosis. Soft tissues: Unremarkable. Other findings: Please see separate report for abdomen/pelvis. IMPRESSION: 1. No acute fracture or malalignment of the lumbar spine. 2. Degenerative changes at L4-L5 produce severe spinal stenosis. Degenerative changes at L3-L4 produce moderate to severe spinal stenosis.
--- NOTE | 2024-04-11 18:38 | CT_ITS ---
PROCEDURE INFORMATION: Exam: CTA Neck With Contrast Exam date and time: 04/11/2024 7:44 PM Age: 73 years old Clinical indication: Injury or trauma; Additional info: Trauma, critical injury suspected TECHNIQUE: Imaging protocol: Computed tomographic angiography of the neck with contrast. Exam focused on the cervical segments of the vasculature. 3D rendering (Not supervised by radiologist): MIP and/or 3D reconstructed images were created by the technologist. Radiation optimization: All CT scans at this facility use at least one of these dose optimization techniques: automated exposure control; mA and/or kV adjustment per patient size (includes targeted exams where dose is matched to clinical indication); or iterative reconstruction. Contrast material: ISOVUE 370; Contrast volume: 80 ml; Contrast route: INTRAVENOUS (IV); COMPARISON: CT CERVICAL SPINE WO CON 04/11/2024 7:35 PM FINDINGS: Right common carotid artery: No stenosis. No dissection or occlusion. Right internal carotid artery: Mild atherosclerotic plaque in the proximal right ICA without significant stenosis. No significant distal right ICA plaque or stenosis. Right external carotid artery: Mild right ECA origin stenosis. Left common carotid artery: Mild left common carotid artery origin stenosis. Distal left common carotid artery is widely patent. Left internal carotid artery: No stenosis of the extracranial segment. No dissection or occlusion. Left external carotid artery: Severe, near occlusive stenosis of the left ECA origin. Right vertebral artery: No stenosis. No dissection or occlusion. Left vertebral artery: The left vertebral artery arises directly from the aortic arch proximal to the subclavian artery origin. Severe stenosis of the left vertebral artery origin. Distal left vertebral artery is widely patent. Left subclavian artery: Severe, near occlusive stenosis of the left subclavian artery. Distal left subclavian artery is patent. Soft tissues: Unremarkable. Bones/joints: No acute fracture. Lungs: 10 mm noncalcified nodule in the left upper lobe. IMPRESSION: 1. 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 2. Mild left common carotid artery origin stenosis. 3. No large vessel occlusion or dissection. 4. 10 mm noncalcified left upper lobe nodule. See chest CT report. 5. Near occlusive stenosis of the left ECA origin. Mild right ECA origin stenosis. REFERENCES: NASCET CRITERIA. The degree of stenosis in the cervical segment of the internal carotid artery is based on NASCET criteria. Normal is no stenosis. Mild is less than 50% stenosis. Moderate is 50-69% stenosis. Severe is 70% to 99% stenosis. Total occlusion is no detectable patent lumen.
--- NOTE | 2024-04-11 18:38 | CT_ITS ---
PROCEDURE INFORMATION: Exam: CTA Head With Contrast, Arteriography Exam date and time: 04/11/2024 7:44 PM Age: 73 years old Clinical indication: Injury or trauma; Fall; Additional info: Trauma, critical injury suspected TECHNIQUE: Imaging protocol: Computed tomographic angiography of the head with contrast. Exam focused on the arteries. 3D rendering (Not supervised by radiologist): MIP and/or 3D reconstructed images were created by the technologist. Radiation optimization: All CT scans at this facility use at least one of these dose optimization techniques: automated exposure control; mA and/or kV adjustment per patient size (includes targeted exams where dose is matched to clinical indication); or iterative reconstruction. Contrast material: ISOVUE 370; Contrast volume: 80 ml; Contrast route: INTRAVENOUS (IV); COMPARISON: CT HEAD/BRAIN WO CON 04/11/2024 7:33 PM FINDINGS: ANTERIOR CIRCULATION: Right internal carotid artery: Calcified plaque causes mild right supraclinoid ICA stenosis. Right ICA is otherwise unremarkable. Right middle cerebral artery: No occlusion or significant stenosis. No aneurysm. Right anterior cerebral artery: No occlusion or significant stenosis. No aneurysm. Left internal carotid artery: Calcified plaque causes mild left supraclinoid ICA stenosis. Left ICA is otherwise unremarkable. Left middle cerebral artery: No occlusion or significant stenosis. No aneurysm. Left anterior cerebral artery: No occlusion or significant stenosis. No aneurysm. POSTERIOR CIRCULATION: Right vertebral artery: No occlusion or significant stenosis. No aneurysm. Left vertebral artery: No occlusion or significant stenosis. No aneurysm. Basilar artery: No occlusion or significant stenosis. No aneurysm. Right posterior cerebral artery: No occlusion or significant stenosis. No aneurysm. Left posterior cerebral artery: No occlusion or significant stenosis. No aneurysm. Veins: Venous sinuses and cerebral veins are patent. No intraluminal thrombus. Brain: No hemorrhage, mass effect, or midline shift. Cerebral ventricles: No ventriculomegaly. Bones/joints: Unremarkable. No acute fracture. Soft tissues: Unremarkable. IMPRESSION: 1. Mild bilateral supraclinoid ICA stenoses. 2. No other significant stenosis or large vessel occlusion.
--- NOTE | 2024-04-11 18:38 | CT_ITS ---
PROCEDURE INFORMATION: Exam: CTA Chest With Contrast Exam date and time: 04/11/2024 7:49 PM Age: 73 years old Clinical indication: Injury or trauma; Fall; Additional info: Trauma, critical injury suspected TECHNIQUE: Imaging protocol: Computed tomographic angiography of the chest with contrast. Exam focused on the arteries. 3D rendering (Not supervised by radiologist): MIP and/or 3D reconstructed images were created by the technologist. Radiation optimization: All CT scans at this facility use at least one of these dose optimization techniques: automated exposure control; mA and/or kV adjustment per patient size (includes targeted exams where dose is matched to clinical indication); or iterative reconstruction. Contrast material: ISOVUE 370; Contrast volume: 80 ml; Contrast route: INTRAVENOUS (IV); COMPARISON: CR XR CHEST PORTABLE 17/11/2023 01:20 FINDINGS: Pulmonary arteries: Enlarged pulmonary arteries likely represent chronic pulmonary arterial hypertension. Great vessels off aortic arch: Moderate to severe stenosis of the proximal left subclavian artery. Aorta: The left vertebral artery originates directly from the aorta. There is moderate to severe stenosis of the origin of the left vertebral artery. The aorta demonstrates severe atherosclerotic disease. Lungs: There is an 8 mm left upper lobe pulmonary nodule image 70 series 7. Bilateral apical scarring. Mild scarring and atelectasis in the lower lungs. Pleural spaces: Unremarkable. No pneumothorax. No pleural effusion. Heart: Cardiomegaly. Aortic valve calcifications. Coronary arteries: Coronary artery calcifications. Lymph nodes: Unremarkable. No enlarged lymph nodes. Bones/joints: Status post median sternotomy and coronary artery bypass. Soft tissues: Mild edema in the right axilla. Other findings: Please see separate report for abdomen/pelvis. IMPRESSION: 1. No acute intrathoracic organ injury. 2. There is an 8 mm left upper lobe pulmonary nodule image 70 series 7. For patients at low risk (minimal or absent history of smoking and of other known risk factors), recommend CT Chest at 6-12 months, then consider CT Chest at 18-24 months. For patients at high risk (history of smoking or of other known risk factors), recommend CT Chest at 6-12 months, then CT Chest at 18-24 months. (Reference: Elke) REFERENCES: Elke Downing et al. Guidelines for Management of Incidental Pulmonary Nodules Detected on CT Images: From the Fleischner Society 2017. Radiology. 2017;284(1):228-243.
--- NOTE | 2024-04-11 18:38 | CT_ITS ---
PROCEDURE INFORMATION: Exam: CT Thoracic Spine Without Contrast Exam date and time: 04/11/2024 7:38 PM Age: 73 years old Clinical indication: Injury or trauma; Fall; Additional info: Trauma, critical injury suspected TECHNIQUE: Imaging protocol: Computed tomography of the thoracic spine without contrast. Radiation optimization: All CT scans at this facility use at least one of these dose optimization techniques: automated exposure control; mA and/or kV adjustment per patient size (includes targeted exams where dose is matched to clinical indication); or iterative reconstruction. COMPARISON: CT CERVICAL SPINE WO CON 11/04/2024 19:35 FINDINGS: Bones/joints: No acute fracture. Normal alignment. No significant disc bulge or herniation. No severe spinal canal stenosis. No significant neural foraminal narrowing. Soft tissues: Unremarkable. Other findings: Please see separate report for CT chest. IMPRESSION: No acute fracture or malalignment of the thoracic spine.
--- NOTE | 2024-04-11 18:38 | CT_ITS ---
PROCEDURE INFORMATION: Exam: CT Cervical Spine Without Contrast Exam date and time: 04/11/2024 7:35 PM Age: 73 years old Clinical indication: Injury or trauma; Fall; Additional info: Trauma, critical injury suspected TECHNIQUE: Imaging protocol: Computed tomography of the cervical spine without contrast. Radiation optimization: All CT scans at this facility use at least one of these dose optimization techniques: automated exposure control; mA and/or kV adjustment per patient size (includes targeted exams where dose is matched to clinical indication); or iterative reconstruction. COMPARISON: CT CERVICAL SPINE WO CON 04/11/2024 7:35 PM FINDINGS: Bones: The cervical spine demonstrates mild discogenic and spondylitic degenerative changes at multiple levels. This is predominantly manifest by endplate discogenic degenerative changes and marginal osteophytes, most prominent at the C4 through T1 levels. Mild facet degenerative arthropathy is present, most prominent at C2 through C4 on the left. Moderate degenerative changes involve the C1-C2 articulation. Vertebral body heights are preserved without compression fractures. There is no evidence of acute fracture. There is moderate to marked leftward neural foraminal narrowing at the C2-C3 level due to facet hypertrophic change and uncovertebral spurring. No significant rightward neural foraminal narrowing or central canal stenosis. There is moderate leftward neural foraminal narrowing at the C3-C4 level due to hypertrophic facet degenerative change and uncovertebral spurring. There is mild rightward neural foraminal narrowing at the C4-C5 level. There is mild leftward neural foraminal narrowing at the C4-C5 level. No significant central canal stenosis. There is moderate bilateral neural foraminal narrowing, slightly greater on the right at the C5-C6 level. Mild posterior bar/disc is present without significant central canal stenosis. Paranasal sinuses: The visualized portions of the sinuses are clear. Prevertebral and retropharyngeal spaces: The prevertebral soft tissues are within range of normal. Lungs: There is an irregular nodular opacity in the left upper lobe measuring 10 x 8 x 8.5 mm seen on series 1001, image 79. Recommend additional evaluation. Thyroid: The visualized thyroid gland is normal. Lymph nodes: There is no evidence of pathologic adenopathy. Soft tissues: No focal soft tissue hematomas. No significant soft tissue edema. The aorta demonstrates mild atherosclerotic calcification. IMPRESSION: 1. No acute posttraumatic osseous abnormality. 2. Irregular nodular opacity in the left upper lobe measuring 10 x 8 x 8.5 mm. Recommend additional evaluation.Consider non-emergent PET/CT or tissue sampling.(Reference: Elke) 3. Mild multilevel cervical discogenic and degenerative changes,. REFERENCES: Elke Downing, et al. Guidelines for Management of Incidental Pulmonary Nodules Detected on CT Images: From the Fleischner Society 2017. Radiology. 2017;284(1):228-243.
--- NOTE | 2024-04-11 18:38 | CT_ITS ---
PROCEDURE INFORMATION: Exam: CT Head Without Contrast Exam date and time: 04/11/2024 7:33 PM Age: 73 years old Clinical indication: Injury or trauma; Fall; Additional info: Trauma, critical injury suspected TECHNIQUE: Imaging protocol: Computed tomography of the head without contrast. Radiation optimization: All CT scans at this facility use at least one of these dose optimization techniques: automated exposure control; mA and/or kV adjustment per patient size (includes targeted exams where dose is matched to clinical indication); or iterative reconstruction. COMPARISON: CT HEAD/BRAIN WO CON 05/25/2019 4:05 PM FINDINGS: Brain: Mild diffuse cerebral atrophy is consistent with this patient's age. The visualized basilar cisterns are patent. The cortical/white matter interfaces are preserved throughout the brain. There is no evidence of mass, mass effect or midline shift. There is no evidence of acute hemorrhage within the brain parenchyma or the subarachnoid space. The craniocervical junction is within range of normal. There are patchy moderate areas of diminished density in the periventricular and subcortical white matter bilaterally which are nonspecific, however likely represent chronic small vessel ischemic change. If symptoms persist, correlation with MRI is advised. Cerebral ventricles: The ventricular system is normal in size and distribution. Paranasal sinuses: The visualized portions degenerative changes are prominent at the C1/C2 articulation. Mastoid air cells: The mastoid sinuses are normal. Orbital cavities: The orbits are normal. Bones: There is no evidence of acute fracture. Soft tissues: No soft tissue swelling is identified. IMPRESSION: No acute intracranial abnormality.
[2024-04-11] MEDS: LACTATED RINGERS 1000ML 1,000 ML 999 ML IV (18:43)
[2024-04-11] MEDS: ACETAMINOPHEN 1,000MG/100ML VIAL 1000 MG IV (18:43)
[2024-04-11 18:54] LABS: Basophils % 0.5 % (0.1-2.0); Eosinophils # 0.3 K/mm3 (0.0-0.4); Eosinophils % 4.1 % (0.1-12.0); Hematocrit 37.3 % (42.0-52.0); Hemoglobin 11.5 g/dL (14.1-18.0); Lymphocytes % 25.4 % (10-50); Mean Corpuscular HGB Conc 30.8 g/dL (31.8-35.4); Mean Corpuscular Hemoglobin 30.2 pg (27.0-31.2); Mean Corpuscular Volume 98.2 fl (80-94); Mean Platelet Volume 7.9 fl (7.4-10.4); Monocytes # 0.5 K/mm3 (0.1-1.0); Monocytes % 6.1 % (1.7-9.3); Neutrophils % 63.8 % (37.0-80.0); Platelet Count 272 K/mm3 (142-424); Red Cell Distribution Width 14.9 % (11.5-17.5); White Blood Count 7.9 K/mm3 (4.8-10.8)
[2024-04-11 18:59] LABS: Chloride 105 mmol/L (98-107)
[2024-04-11 19:00] LABS: Albumin Level 4.4 g/dl (3.5-5.0); Sodium 140 mmol/L (136-145)
[2024-04-11 19:02] LABS: Blood Urea Nitrogen 11 mg/dl (9-20); Creatinine Clearance Estimated 75 mL/min (50-200); Estimated Glomerular Filt Rate 132 ml/min (>60); GFR (African American) 160 ML/MIN (>60)
[2024-04-11 19:03] LABS: Alanine Aminotransferase 12 U/L (12-78); Albumin/Globulin Ratio 1.4 (1.1-1.8); Alkaline Phosphatase 70 U/L (38-126); Aspartate Amino Transferase 43 U/L (17-59); Bilirubin,Total 1.2 mg/dl (0.2-1.3); Calcium 8.6 mg/dl (8.4-10.2); Carbon Dioxide 29 mmol/L (22.0-30.0); Globulin 3.1 g/dL (1.3-3.2); Glucose 70 mg/dl (74-100); Total Protein,Serum 7.5 g/dl (6.3-8.2)
[2024-04-11 19:20] LABS: INR 1.01 (0.9-1.1); Prothrombin Time 11.3 seconds (10.1-12.5)
[2024-04-11] MEDS: IOPAMIDOL-370 (76%);100ML BOTTLE 160 ML IV (19:49)
[2024-04-11] MEDS: SODIUM CHLORIDE 0.9% 10ML SYR (RAD ONLY) 10 ML IV (19:49)
[2024-04-11] MEDS: 0.9 % SODIUM CHLORIDE 50 ML VIAL IV ×2 (19:49)
--- NOTE | 2024-04-11 20:01 | ECG_ITS ---
APPROVED REPORT Exam: Resting ECG HR:62 bpm ECG Measurements Heart Rate 62 AXES MD 166 P 93 QRSd 93 QRS 52 QT 422 T 72 QTc 426 Conclusion SINUS RHYTHM NONSPECIFIC T-WAVE ABNORMALITY BORDERLINE ECG Electronically signed by : CARLIN MERCADO, 04/13/2024 23:20:51
--- NOTE | 2024-04-11 20:51 | PC.NURSE ---
Contacted CB in regards to transfer and consult for this patient. Awaiting callback.
--- NOTE | 2024-04-11 21:03 | PC.NURSE ---
dr leigh returned call
--- NOTE | 2024-04-11 21:04 | PC.NURSE ---
received call back from dr leigh at [facility]
[2024-04-11 21:30] VITALS: BP 150/90; PULSE 78; RESP 19; TEMP 36.8; O2SAT 98
== END 2024-04-11 21:36 | disposition home or self-care (01) ==
PROVIDERS: Physician Assistant; Emergency Provider Emergency Medicine; PCP Family Medicine
DX: I65.23 Occlusion and stenosis of bilateral carotid arteries (principal); R55 Syncope and collapse; S20.211A Contusion of right front wall of thorax, initial encounter; E11.9 Type 2 diabetes mellitus without complications; I10 Essential (primary) hypertension; K21.9 Gastro-esophageal reflux disease without esophagitis; W18.30XA Fall on same level, unspecified, initial encounter; Z79.84 Long term (current) use of oral hypoglycemic drugs
CPT/HCPCS: 70450; 70496; 70498; 71275; 72125; 72128; 72131; 74174; 80053; 85025; 85610; 86850; 93005; 96361; 96374; 99285; J0131; J7120; Q9967

== ENCOUNTER 2024-05-15 12:21 | Outpatient (CLI) | payer MEDICARE, SELFPAY | END 2024-05-15 23:59 | disposition home or self-care (01) | LOC: RT 12:22 | PROVIDERS: PCP Family Medicine; Visit Provider Nurse Practitioner Family | DX: R91.1 Solitary pulmonary nodule (principal) | CPT/HCPCS: 94060; 94726; 94729 ==

== ENCOUNTER 2024-07-30 07:42 | Emergency (ER) | payer MEDICARE, SELFPAY ==
[2024-07-30] VITALS (12 sets, daily range): BP systolic 99–160; BP diastolic 67–80; PULSE 51–99; RESP 16–18; TEMP 36.6; O2SAT 98–100; BMI 28.2
--- NOTE | 2024-07-30 08:00 | CT_ITS ---
FINAL REPORT TECHNIQUE: Pre-and postcontrast images of the abdomen were performed by computed tomography. Extensive 3-D reconstruction images were performed. A CTA was performed. This study was performed with techniques to keep radiation doses as low as reasonably achievable (ALARA). Individualized dose reduction techniques using automated exposure control or adjustment of mA and/or kV according to the patient''s size were employed. CLINICAL HISTORY: epigastric pain COMPARISON: 04/11/2024 FINDINGS: ABDOMEN AND PELVIS: The lung bases demonstrate mild bronchial wall thickening consistent with bronchitis. Kidneys are normal. Liver is lobular consistent with cirrhosis. Spleen is enlarged at 13.8 cm. Adrenal glands and pancreas are unremarkable. There are postoperative changes near the GE junction. There is cholelithiasis. A small hiatal hernia is seen. The appendix is normal. There is a small umbilical hernia containing fat. CTA: The abdominal aorta is proper caliber. There is mild stenosis at the origin of the celiac axis measuring less than 50%. SMA and JOSE MARTIN are unremarkable. There is calcified plaque at the origin of the bilateral renal arteries with a probable, moderate to high-grade stenosis of the right renal artery. There is no significant stenosis of the left renal artery. Accessory right renal artery is patent. Iliac arteries are unremarkable. A stent is seen in the right superficial femoral artery with moderate stenosis proximally of 50-60%. IMPRESSION: Probable moderate to high-grade stenosis of the right renal artery. Mild stenosis of the origin of the celiac axis, less than 50%. Cirrhosis and splenomegaly. Cholelithiasis. Reviewed, Interpreted and Dictated by Kirt Prasad III, MD Transcribed by Patience Reynolds Authenticated and [facility]
--- NOTE | 2024-07-30 08:00 | PC.NURSE ---
DR AWAD AT BEDSIDE
--- NOTE | 2024-07-30 08:01 | XR_ITS ---
FINAL REPORT CLINICAL HISTORY: epigastric pain COMPARISON: 11/17/2023 FINDINGS: A single portable view of the chest was obtained. The heart size and pulmonary vascularity are within normal limits. Prior median sternotomy. Mild scarring is noted. No acute pulmonary abnormality is identified. The bony thorax is intact. IMPRESSION: No active cardiopulmonary disease. Reviewed, Interpreted and Dictated by Kirt Prasad III, MD Transcribed by Marleny Calzada Authenticated and [facility]
--- NOTE | 2024-07-30 08:02 | ED_ITS ---
Discharge Plan Disposition Patient Disposition: Home, Self-Care Prescriptions Prescriptions: New polyethylene glycol 3350 [Miralax] 17 gram/dose powder 17 g PO BID Qty: 1020 0RF sennosides [Natural Senna Laxative] 8.6 mg tablet 8.6 mg PO DAILY Qty: 30 0RF docusate calcium [Stool Softener (docusate alfonso)] 240 mg capsule 240 mg PO DAILY Qty: 30 0RF No Action meclizine 25 mg tablet 25 mg PO DAILY 30 Days Qty: 90 Patient Comments: gabapentin 800 mg tablet 800 mg PO BID 30 Days Qty: 90 Patient Comments: carvedilol 12.5 mg tablet 12.5 mg PO BID 90 Days Qty: 180 Patient Comments: atorvastatin 80 mg tablet 80 mg PO DAILY 90 Days Qty: 90 Patient Comments: losartan 25 mg tablet 25 mg PO DAILY 90 Days Qty: 90 Patient Comments: glimepiride 1 mg tablet 1 mg PO DAILY 90 Days Qty: 90 Patient Comments: pantoprazole 40 mg tablet,delayed release (DR/EC) 40 mg PO DAILY 90 Days Qty: 90 Patient Comments: take 1 tablet by mouth once daily clopidogrel 75 mg tablet 75 mg PO DAILY 90 Days Qty: 90 Patient Comments: take 1 tablet by mouth once daily acetaminophen-codeine 300-15 mg tablet 1 tab PO Q4HP PRN (Reason: Moderate Pain (Scale Score 5-6)) benzonatate [benzonatate] 100 mg capsule 100 mg PO TIDP PRN (Reason: Cough) Qty: 30 0RF guaifenesin [Mucinex] 600 mg tablet extended release 12hr 600 - 1,200 mg PO BIDP PRN (Reason: Congestion) Qty: 30 0RF furosemide 40 MG tablet 40 mg PO BID aspirin 325 MG tablet 325 mg PO DAILY carbidopa-levodopa 25-100 mg tablet extended release 1 tab PO BID Patient Comments: TAKE 1 TABLET BY MOUTH TWICE DAILY temazepam 30 mg capsule 30 mg PO HS PRN (Reason: Sleep) Patient Comments: TAKE 1 CAPSULE BY MOUTH AT NIGHT NEEDED FOR SLEEP Referrals Follow up/Referrals: Alexis Vallejo MD [Primary Care Provider] - See instructions Activity Restrictions/Add. Instructions Additional Instructions/Restrictions: Use bowel regimen as prescribed. Follow-up with general surgery. Your appointment is for as indicated. Please return the emerged part with any new, concerning, worsening symptoms including but not limited to severe upper abdominal pain, fever, intractable nausea and vomiting. Clinical Impressions Clinical Impression: Abdominal pain Qualifiers: Abdominal location: epigastric Qualified Code(s): R10.13 - Epigastric pain Cholelithiasis Qualifiers: Cholelithiasis location: gallbladder Cholecystitis presence: without cholecystitis Biliary obstruction: without biliary obstruction Qualified Code(s): K80.20 - Calculus of gallbladder without cholecystitis without obstruction Instructions Patient Instructions: DI for Acute Abdominal Pain Print Language Print Language: Malawian Discharge ED Provider: Lucian Green General Adult HPI General Chief complaint: Abdominal Pain Stated complaint: upper abd pain Time Seen by Provider: 07/30/24 07:50 Mode of Arrival: Ambulatory Source of Information: Patient Limitations: No Limitations History of Present Illness HPI narrative: This is a 73-year-old male with a past medical history of hypertension, diabetes, four-vessel CABG in 2002, GERD, who presents with epigastric pain that began this morning about 1 hour prior to arrival. States that he is having constant epigastric pressure. Denies associated nausea or vomiting. Has not had a bowel movement in the last 2 days. Is not passing gas. Related Data Home Medications ?Medication ?Instructions ?Recorded ?Confirmed atorvastatin 80 mg tablet 80 mg PO DAILY High cholesterol 90 11/03/17 11/17/23 days ##90 carvedilol 12.5 mg tablet 12.5 mg PO BID High Blood Pressure 11/03/17 11/17/23 90 days ##180 clopidogrel 75 mg tablet 75 mg PO DAILY Platelet Inhibitor 11/03/17 11/17/23 90 days ##90 gabapentin 800 mg tablet 800 mg PO BID Pain 30 days ##90 11/03/17 11/17/23 glimepiride 1 mg tablet 1 mg PO DAILY Diabetes 90 days ##90 11/03/17 11/17/23 losartan 25 mg tablet 25 mg PO DAILY . 90 days ##90 11/03/17 11/17/23 meclizine 25 mg tablet 25 mg PO DAILY dizziness 30 days 11/03/17 11/17/23 ##90 pantoprazole 40 mg tablet,delayed 40 mg PO DAILY Acid Reflux 90 days 11/03/17 11/17/23 release ##90 aspirin 325 mg tablet 325 mg PO DAILY Heart Health 03/01/18 11/17/23 furosemide 40 mg tablet 40 mg PO BID Fluid 03/01/18 11/17/23 acetaminophen 300 mg-codeine 15 mg 1 tab PO Q4HP PRN Moderate Pain 07/10/18 11/17/23 tablet (Scale Score 5-6) carbidopa ER 25 mg-levodopa 100 mg 1 tab PO BID 11/17/23 11/17/23 tablet,extended release temazepam 30 mg capsule 30 mg PO HS PRN Sleep 11/17/23 11/17/23 Previous Rx's ?Medication ?Instructions ?Recorded benzonatate 100 mg capsule 100 mg PO TIDP PRN Cough #30 caps 08/26/23 guaifenesin 600 mg tablet, 600 - 1,200 mg (1 - 2 x 600 mg) PO 08/26/23 extended release 12 hr (Mucinex) BIDP PRN Congestion #30 tabs docusate calcium 240 mg capsule 240 mg PO DAILY #30 caps 07/30/24 (Stool Softener (docusate calcium)) polyethylene glycol 3350 17 17 g PO BID #1,020 grams 07/30/24 gram/dose oral powder (Miralax) sennosides 8.6 mg tablet (Natural 8.6 mg PO DAILY #30 tabs 07/30/24 Senna Laxative) Allergies Allergy/AdvReac Type Severity Reaction Status Date / Time No Known Drug Allergies Allergy Unknown Unknown Verified 07/30/24 08:26 (NKDA) allergy reaction [facility] Disclaimer: The information contained in this section may have been updated after the patient was seen, as this information can be updated by other users. Medical History (Updated 07/30/24 @ 12:53 by Lucian Green MD) Hypertension Diabetes GERD (gastroesophageal reflux disease) Surgical History (Updated 11/17/23 @ 02:26 by Jacquelin Valera RN) History of open heart surgery Social History (Updated 11/17/23 @ 03:29 by Jacquelin Valera RN) Smoking Status: Former smoker alcohol intake: former current occupational status: disabled Travel in the last 8 weeks: None housing: house lives independently: Yes marital status: service: Yes ([place] ) status: retired branch: [employer] current occupational exposures/hazards: No Other Medical History Have you received the Flu Vaccine for this season: No (AMA) Have you received the Pneumonia Vaccine: No (AMA) ROS Obtained: Yes All systems reviewed & no additional complaints except as documented Physical Exam General General appearance: alert Comment: Appears to be in a significant amount of distress secondary to pain, clutching epigastrium Eye Eye exam: Present normal appearance, PERRL and EOMI Respiratory Respiratory exam: Present normal lung sounds bilaterally; Absent respiratory distress Cardiovascular Cardiovascular exam: Present regular rate and normal rhythm Expanded Cardiovascular Exam Peripheral pulses: 2+: radial (R), radial (L), dorsalis pedis (R) and dorsalis pedis (L) Abdominal Exam Abdominal exam: Present soft, distention and tenderness (epigastric); Absent guarding or rebound Extremities Exam Extremities exam: Present normal inspection Neurological Exam Neurological exam: Present alert and oriented X3 Skin Skin exam: Present warm and dry Medical Decision Making Medical Records Medical records reviewed: Yes I reviewed the patient's medical records. Screening: Per USPSTF and CDC recommendations, given the prevalence of disease in our region, it is our hospital?s policy to screen for HIV and viral Hepatitis for all patients aged 18 and over and those with ongoing risk factors. Jose Rafael Inquiry Pt receiving controlled substance: No Vital Signs: 07/30/24 07:50 07/30/24 08:00 07/30/24 08:06 Temperature 97.9 F Temperature Source Oral Pulse Rate 69 68 Pulse Rate [Left] 68 Respiratory Rate 16 Blood Pressure 137/74 136/78 Blood Pressure [Right Arm] 137/74 Blood Pressure Mean 91 101 Blood Pressure Mean [Right Arm] 95 Blood Pressure Source [Right Arm] Automatic Cuff Blood Pressure Position [Right Arm] Sitting 02 Sat by Pulse Oximetry 100 98 98 Oxygen Delivery Method Room Air 07/30/24 08:32 07/30/24 09:00 07/30/24 09:30 Temperature Temperature Source Pulse Rate 68 93 H 99 H Pulse Rate [Left] Respiratory Rate Blood Pressure 124/73 145/67 H 139/75 Blood Pressure [Right Arm] Blood Pressure Mean 95 93 99 Blood Pressure Mean [Right Arm] Blood Pressure Source [Right Arm] Blood Pressure Position [Right Arm] 02 Sat by Pulse Oximetry 99 98 98 Oxygen Delivery Method 07/30/24 10:01 07/30/24 10:45 07/30/24 11:01 Temperature Temperature Source Pulse Rate 54 L 51 L 52 L Pulse Rate [Left] Respiratory Rate Blood Pressure 120/68 152/75 H 158/73 H Blood Pressure [Right Arm] Blood Pressure Mean 89 84 101 Blood Pressure Mean [Right Arm] Blood Pressure Source [Right Arm] Blood Pressure Position [Right Arm] 02 Sat by Pulse Oximetry 98 99 98 Oxygen Delivery Method Room Air 07/30/24 11:30 07/30/24 12:01 Temperature Temperature Source Pulse Rate 56 L 54 L Pulse Rate [Left] Respiratory Rate Blood Pressure 160/74 H 99/80 L Blood Pressure [Right Arm] Blood Pressure Mean 102 86 Blood Pressure Mean [Right Arm] Blood Pressure Source [Right Arm] Blood Pressure Position [Right Arm] 02 Sat by Pulse Oximetry 100 100 Oxygen Delivery Method Lab Data Lab Results 07/30/24 08:00: WBC 6.0, RBC 4.46 L, Hgb 12.5 L, Hct 39.8 L, MCV 89.1, MCH 27.9, MCHC 31.3 L, RDW 15.5, Plt Count 241, MPV 7.5, Neut % (Auto) 65.2, Lymph % (Auto) 21.1, [place] % (Auto) 7.2, Eos % (Auto) 6.0, Baso % (Auto) 0.4, Neut # (Auto) 3.9, Lymph # (Auto) 1.3, [place] # (Auto) 0.4, Eos # (Auto) 0.4, Baso # (Auto) 0.0, Sodium 141, Potassium 3.7, Chloride 103, Carbon Dioxide 30, Anion Gap 11.7, BUN 9, Creatinine 0.70, Estimated Creat Clear 75, Estimated GFR 111, Est GFR ( Amer) 134, Glucose 129 H, Lactate 1.3, Calcium 8.7, Total Bilirubin 0.9, AST 40, ALT 13, Alkaline Phosphatase 85, Troponin I < 0.01, Total Protein 7.6, Albumin 4.6, Globulin 3.0, Albumin/Globulin Ratio 1.5, Lipase 180, HIV 1&2 Antibody Rapid Nonreactive 07/30/24 : Urine Color Yellow, Urine Appearance Clear, Urine pH 7.5, Ur Specific [place] 1.010, Urine Protein Negative, Urine Glucose (UA) Negative, Urine Ketones Negative, Urine Blood Negative, Urine Nitrate Negative, Urine Bilirubin Negative, Urine Urobilinogen 1.0, Ur Leukocyte Esterase Negative, Urine RBC None, Urine WBC None, Ur Squamous Epith Cells Occasional, Urine Bacteria Trace 07/30/24 08:00 07/30/24 08:00 Orders (Tests/Meds): ED MEDICATIONS Generic Name Dose Route Start Last Admin Trade Name Freq PRN Reason Stop Dose Admin Hydromorphone HCl 0.5 mg 07/30/24 08:00 07/30/24 10:46 Hydromorphone 2mg/Ml Syringe IV 08/29/24 07:59 0.5 mg Q2HP PRN Administration Severe Pain (7-10) Discontinued Medications Generic Name Dose Route Start Last Admin Trade Name Freq PRN Reason Stop Dose Admin Al Hydrox/Mg Hydrox/Simethicone 30 ml 07/30/24 10:01 07/30/24 10:42 Aluminum/Magnesium/Simethicone 30ml Udc PO 07/30/24 10:02 30 ml ONCE ONE Administration Famotidine 40 mg 07/30/24 08:00 07/30/24 08:20 Famotidine 20mg/2ml Vial IV 07/30/24 08:01 40 mg ONCE ONE Administration Iopamidol 80 ml 07/30/24 08:51 07/30/24 08:52 Iopamidol-370 (76%);100ml Bottle IV 07/30/24 08:52 80 ml ONCE ONE Administration Ondansetron HCl 4 mg 07/30/24 08:00 07/30/24 08:24 Ondansetron 4mg/2ml Vial IV 07/30/24 08:01 4 mg ONCE ONE Administration Sodium Chloride 50 ml 07/30/24 08:51 07/30/24 08:52 0.9 % Sodium Chloride 50 Ml Vial IV 07/30/24 08:52 50 ml ONCE ONE Administration ORDERS Category Date Time Status CT angio abdomen pelvis Stat Cat Scan 07/30/24 08:00 Completed Chest XR -- portable [XR chest portable] Stat Exams 07/30/24 08:01 Completed US Right Upper Quad [US abdomen limited] Stat Exams 07/30/24 10:09 Completed CBC w/Auto Diff [Complete Blood Count Auto Diff] Stat Lab 07/30/24 08:00 Completed CMP [Comprehensive Metabolic Panel] Stat Lab 07/30/24 08:00 Completed HIV (1&2) Antibody Rapid Stat Lab 07/30/24 08:00 Completed Hep C Ab with Reflex to RNA Stat Lab 07/30/24 08:00 Received Lactic Acid Stat Lab 07/30/24 08:00 Completed Lipase Stat Lab 07/30/24 08:00 Completed Troponin I Stat Lab 07/30/24 08:00 Completed Urinalysis and Microscopic Stat Lab 07/30/24 Completed ECG Data Tracing #1: I reviewed this ECG and interpreted as documented below: Normal sinus rhythm at a rate of 66, QTc 442, normal axis, no STEMI Medical Decision Narrative: In summary, this 73-year-old male with a past medical history of hypertension, hyperlipidemia, diabetes, CAD status post four-vessel CABG in 2002, GERD presents to the emergency department today with epigastric pain. On initial evaluation patient is afebrile, nontachycardic, normotensive, tender to the epigastrium. Differential diagnosis includes but is not limited to pancreatitis, bowel obstruction, aortic dissection, AAA, ACS. Based on these concerns, I ordered EKG, chest x-ray, troponin, CBC, CMP, lipase, lactate, UA, CTA of abdomen/pelvis. ECG personally interpreted as noted above. Patient received Dilaudid, Zofran, and Pepcid and for treatment. Labs personally reviewed demonstrate unremarkable CBC, CMP, normal lipase, no evidence of UTI, undetectable troponin. XR personally interpreted demonstrates no acute cardiopulmonary pathology. CT imaging personally interpreted demonstrates no evidence of bowel obstruction or other acute intra-abdominal pathology. Did reveal cholelithiasis with no evidence of cholecystitis. Obtained a right upper quadrant ultrasound as well redemonstrating cholelithiasis and no evidence of cholecystitis. No common bile duct dilation. Radiology report notes mild gallbladder wall thickening at 4 mm. No pericholecystic fluid. On reassessment still complaining of significant epigastric pain. Administer GI cocktail and a repeat dose of Dilaudid which improved pain. Considered hospitalization and discussed this possibility with the patient, however he desired discharge with general surgery follow-up. He was tolerating oral intake without difficulty and significant improvement in his abdominal pain. It was not felt that he had acute cholecystitis at this time and just symptomatic cholelithiasis. He stated that his abdominal began 30 minutes after eating a bowl of oatmeal at 3 AM this morning. Patient was scheduled for a follow-up appointment with general surgery this . Was ultimately discharged in stable condition with a bowel regimen as well given CT evidence of constipation and no bowel movement in the last 2 days. Critical Care Critical Care Time Critical Care Time: No
--- NOTE | 2024-07-30 08:09 | ECG_ITS ---
APPROVED REPORT Exam: Resting ECG HR:66 bpm ECG Measurements Heart Rate 66 AXES WI 111 P 261 QRSd 85 QRS 74 QT 429 T 18 QTc 442 Conclusion NORMAL SINUS RHYTHM NONSPECIFIC T-WAVE ABNORMALITY ABNORMAL RHYTHM ECG UNCONFIRMED REPORT Electronically signed by : Lucian Green, 07/30/2024 14:58:12
[2024-07-30 08:18] LABS: Basophils % 0.4 % (0.1-2.0); Eosinophils # 0.4 K/mm3 (0.0-0.4); Hematocrit 39.8 % (42.0-52.0); Hemoglobin 12.5 g/dL (14.1-18.0); Lymphocytes # 1.3 K/mm3 (0.7-4.5); Lymphocytes % 21.1 % (10-50); Mean Corpuscular HGB Conc 31.3 g/dL (31.8-35.4); Mean Corpuscular Hemoglobin 27.9 pg (27.0-31.2); Mean Corpuscular Volume 89.1 fl (80-94); Mean Platelet Volume 7.5 fl (7.4-10.4); Monocytes # 0.4 K/mm3 (0.1-1.0); Monocytes % 7.2 % (1.7-9.3); Neutrophils # 3.9 K/mm3 (1.8-7.8); Neutrophils % 65.2 % (37.0-80.0); Platelet Count 241 K/mm3 (142-424); Red Blood Count 4.46 M/mm3 (4.60-6.20); Red Cell Distribution Width 15.5 % (11.5-17.5)
[2024-07-30] MEDS: FAMOTIDINE 20MG/2ML VIAL 40 MG IV (08:20)
[2024-07-30 08:23] LABS: Albumin Level 4.6 g/dl (3.5-5.0); Chloride 103 mmol/L (98-107); Potassium 3.7 mmoL/L (3.5-5.1); Sodium 141 mmol/L (136-145)
[2024-07-30] MEDS: ONDANSETRON 4MG/2ML VIAL 4 MG IV (08:24)
[2024-07-30] MEDS: HYDROMORPHONE 2MG/ML SYRINGE 0.5 MG IV ×2 (08:24→10:46)
[2024-07-30 08:26] LABS: Alanine Aminotransferase 13 U/L (12-78); Albumin/Globulin Ratio 1.5 (1.1-1.8); Alkaline Phosphatase 85 U/L (38-126); Anion Gap 11.7 mEq/L (5-15); Aspartate Amino Transferase 40 U/L (17-59); Bilirubin,Total 0.9 mg/dl (0.2-1.3); Blood Urea Nitrogen 9 mg/dl (9-20); Carbon Dioxide 30 mmol/L (22.0-30.0); Creatinine Clearance Estimated 75 mL/min (50-200); Estimated Glomerular Filt Rate 111 ml/min (>60); GFR (African American) 134 ML/MIN (>60); Lipase 180 U/L (23-300); Total Protein,Serum 7.6 g/dl (6.3-8.2)
[2024-07-30 08:27] LABS: Calcium 8.7 mg/dl (8.4-10.2); Glucose 129 mg/dl (74-100); Lactic Acid 1.3 mmol/L (0.7-2.1)
--- NOTE | 2024-07-30 08:38 | PC.NURSE ---
I rounded on the pt. his pain is slightly better, he just feels loopy from the dilaudid. no needs voiced. call cai in reach.
--- NOTE | 2024-07-30 08:38 | PC.NURSE ---
Patient to radiology
[2024-07-30 08:40] LABS: Troponin I < 0.01 ng/ml (0.00-0.034)
--- NOTE | 2024-07-30 08:51 | PC.NURSE ---
Patient back from radiology
[2024-07-30] MEDS: 0.9 % SODIUM CHLORIDE 50 ML VIAL IV (08:52)
[2024-07-30] MEDS: IOPAMIDOL-370 (76%);100ML BOTTLE 80 ML IV (08:52)
[2024-07-30 09:25] LABS: Microscopic, Urine URINE MICROSCOPIC (MICROSCOPIC)
[2024-07-30 09:33] LABS: Appearance,Urine CLEAR (Clear); Bilirubin,Urine Negative (Negative); Blood, Urine Negative (Negative); Color,Urine YELLOW (Yellow); Glucose,Urine (UA) Negative (Negative); Ketones,Urine Negative (Negative); Leukocyte Esterase,Urine Negative (Negative); Nitrate,Urine Negative (Negative); PH,Urine 7.5 (5.0-8.5); Protein,Urine Negative (Negative)
[2024-07-30 09:57] LABS: Bacteria,Urine Trace /lpf; Squamous Epithelial Cell,Urine Occasional #/hpf (0-5)
--- NOTE | 2024-07-30 10:09 | US_ITS ---
FINAL REPORT CLINICAL HISTORY: epigastric pain, gallstones FINDINGS: Sonographic images of the right upper quadrant were obtained. The pancreas is partially obscured.The liver has an unremarkable appearance. There are gallstones with gallbladder wall thickening measuring 4 mm. There is no evidence of biliary ductal dilatation.The common duct measures 4mm. Limited images of the right kidney are unremarkable. IMPRESSION: Cholelithiasis with gallbladder wall thickening. If indicated, this can be further evaluated with nuclear medicine hepatobiliary scan. Reviewed, Interpreted and Dictated by Kirt Prasad III, MD Transcribed by Patience Reynolds Authenticated and [facility]
--- NOTE | 2024-07-30 10:41 | PC.NURSE ---
PT RETURNED FROM CT
[2024-07-30] MEDS: ALUMINUM/MAGNESIUM/SIMETHICONE 30ML UDC 30 ML PO (10:42)
--- NOTE | 2024-07-30 11:51 | PC.NURSE ---
I rounded on the pt. he states the pain medication helped tremendously. I took him some crackers and water for a PO challenge. no needs voiced. call cai in reach.
--- NOTE | 2024-07-30 12:05 | PC.NURSE ---
PT TOLERATED CRACKERS AND WATER
--- NOTE | 2024-07-30 12:13 | PC.NURSE ---
I left a voicemail for general surgery requesting to make an appointment with the pt. I was unable to reach an individual.
[2024-07-30 12:32] LABS: HIV (1&2) Antibody Rapid NONREACTIVE (NONREACTIVE)
[2024-07-31 09:16] LABS: HCV Ab Non Reactive (Non Reactive)
== END 2024-07-30 13:17 | disposition home or self-care (01) ==
PROVIDERS: Emergency Provider Student in an Organized Health Care Education/Training Program; PCP Family Medicine
DX: K80.20 Calculus of gallbladder without cholecystitis without obstruction (principal); R10.13 Epigastric pain
CPT/HCPCS: 71045; 74174; 76705; 80053; 81001; 83605; 83690; 84484; 85025; 86803; 87389; 93005; 96374; 96375; 99285; J1171; J2405; Q9967; S0028

== ENCOUNTER 2024-09-03 09:21 | Emergency (ER) | payer MEDICARE, SELFPAY ==
[2024-09-03] VITALS (8 sets, daily range): BP systolic 157–182; BP diastolic 62–80; PULSE 53–70; RESP 16–18; TEMP 36.4–36.5; O2SAT 99–100; BMI 29.0
--- NOTE | 2024-09-03 10:02 | ED_ITS ---
Discharge Plan Disposition Patient Disposition: Home, Self-Care Prescriptions Prescriptions: New methocarbamol 750 mg tablet 1,500 mg PO TID 5 Days Qty: 30 0RF prednisone 20 mg tablet 40 mg PO DAILY 5 Days Qty: 10 0RF No Action meclizine 25 mg tablet 25 mg PO DAILY 30 Days Qty: 90 Patient Comments: gabapentin 800 mg tablet 800 mg PO BID 30 Days Qty: 90 Patient Comments: carvedilol 12.5 mg tablet 12.5 mg PO BID 90 Days Qty: 180 Patient Comments: atorvastatin 80 mg tablet 80 mg PO DAILY 90 Days Qty: 90 Patient Comments: losartan 25 mg tablet 25 mg PO DAILY 90 Days Qty: 90 Patient Comments: glimepiride 1 mg tablet 1 mg PO DAILY 90 Days Qty: 90 Patient Comments: pantoprazole 40 mg tablet,delayed release (DR/EC) 40 mg PO DAILY 90 Days Qty: 90 Patient Comments: take 1 tablet by mouth once daily clopidogrel 75 mg tablet 75 mg PO DAILY 90 Days Qty: 90 Patient Comments: take 1 tablet by mouth once daily acetaminophen-codeine 300-15 mg tablet 1 tab PO Q4HP PRN (Reason: Moderate Pain (Scale Score 5-6)) benzonatate [benzonatate] 100 mg capsule 100 mg PO TIDP PRN (Reason: Cough) Qty: 30 0RF guaifenesin [Mucinex] 600 mg tablet extended release 12hr 600 - 1,200 mg PO BIDP PRN (Reason: Congestion) Qty: 30 0RF polyethylene glycol 3350 [Miralax] 17 gram/dose powder 17 g PO BID Qty: 1020 0RF sennosides [Natural Senna Laxative] 8.6 mg tablet 8.6 mg PO DAILY Qty: 30 0RF docusate calcium [Stool Softener (docusate alfonso)] 240 mg capsule 240 mg PO DAILY Qty: 30 0RF furosemide 40 MG tablet 40 mg PO BID aspirin 325 MG tablet 325 mg PO DAILY carbidopa-levodopa 25-100 mg tablet extended release 1 tab PO BID Patient Comments: TAKE 1 TABLET BY MOUTH TWICE DAILY temazepam 30 mg capsule 30 mg PO HS PRN (Reason: Sleep) Patient Comments: TAKE 1 CAPSULE BY MOUTH AT NIGHT NEEDED FOR SLEEP Referrals Follow up/Referrals: Alexis Vallejo MD [Primary Care Provider] - See instructions Activity Restrictions/Add. Instructions Additional Instructions/Restrictions: Call your family doctor to establish care for this visit to the emergency department and schedule follow-up within 48 hours to ensure improvement. If you have any worsening of your condition or any other concerning signs or symptoms, return to the emergency department or your primary care doctor for further evaluation. Call physical therapy to set up for lower back pain. Prednisone each morning for the next 5 days. Take with plenty of food and water to prevent GI upset and kidney damage. Methocarbamol can cause you to feel drowsy. Do not drive, operate heavy machinery, or engage in any activity that may make you tired, fall asleep, and because harm to yourself or others while taking this medication. Clinical Impressions Clinical Impression: Acute lumbar radiculopathy, Left sided sciatica Instructions Patient Instructions: DI for Low Back Pain Print Language Print Language: Citizen Of [place] Discharge ED Provider: Bao Jenkins General Adult HPI General Chief complaint: Back Pain/Injury Stated complaint: Pain L hip/back Time Seen by Provider: 09/03/24 09:37 Mode of Arrival: Wheelchair Source of Information: Patient Limitations: No Limitations Description of Symptoms (Recalled from ER Triage Doc. by RN): PT REPORTS LOW-MID BACK PAIN THAT RADIATES DOWN LEFT HIP X 2-3 WEEKS. NO INJURY. PAIN WORSE WITH MOVEMENT, BETTER WITH REST. PT DENIES LOSS OF BOWEL OR BLADDER, NO NUMBESS OR TINGLING. History of Present Illness HPI narrative: Please note that above description of symptoms, in this electronic medical record under categorization of recalled from ER triage doctor by RN are reflective of an initial nursing assessment, however, is not reflective of my full history and physical exam that was personally taken and clarified. Consequentially, this preceding description of symptoms, which may include the patient's categorized chief complaint in the EMR, do not reflect my personal clinical impression, and the ultimate description of history of present illness and patient stated complaints should be deferred to this section of the note. Unless stated otherwise or congruent with this section of the note, additional signs, symptoms, or incongruence should be interpreted as inaccurate with my clinical impression. Related Data Home Medications ?Medication ?Instructions ?Recorded ?Confirmed atorvastatin 80 mg tablet 80 mg PO DAILY High cholesterol 90 11/03/1711/16/24 days ##90 carvedilol 12.5 mg tablet 12.5 mg PO BID High Blood Pressure 11/03/17 11/17/23 90 days ##180 clopidogrel 75 mg tablet 75 mg PO DAILY Platelet Inhibitor 11/03/17 11/17/23 90 days ##90 gabapentin 800 mg tablet 800 mg PO BID Pain 30 days ##90 11/03/17 11/17/23 glimepiride 1 mg tablet 1 mg PO DAILY Diabetes 90 days ##90 11/03/17 11/17/23 losartan 25 mg tablet 25 mg PO DAILY . 90 days ##90 11/03/17 11/17/23 meclizine 25 mg tablet 25 mg PO DAILY dizziness 30 days 11/03/17 11/17/23 ##90 pantoprazole 40 mg tablet,delayed 40 mg PO DAILY Acid Reflux 90 days 11/03/17 11/17/23 release ##90 aspirin 325 mg tablet 325 mg PO DAILY Heart Health 03/01/18 11/17/23 furosemide 40 mg tablet 40 mg PO BID Fluid 03/01/18 11/17/23 acetaminophen 300 mg-codeine 15 mg 1 tab PO Q4HP PRN Moderate Pain 07/10/18 11/17/23 tablet (Scale Score 5-6) carbidopa ER 25 mg-levodopa 100 mg 1 tab PO BID 11/17/23 11/17/23 tablet,extended release temazepam 30 mg capsule 30 mg PO HS PRN Sleep 11/17/23 11/17/23 Previous Rx's ?Medication ?Instructions ?Recorded benzonatate 100 mg capsule 100 mg PO TIDP PRN Cough #30 caps 08/26/23 guaifenesin 600 mg tablet, 600 - 1,200 mg (1 - 2 x 600 mg) PO 08/26/23 extended release 12 hr (Mucinex) BIDP PRN Congestion #30 tabs docusate calcium 240 mg capsule 240 mg PO DAILY #30 caps 07/30/24 (Stool Softener (docusate calcium)) polyethylene glycol 3350 17 17 g PO BID #1,020 grams 07/30/24 gram/dose oral powder (Miralax) sennosides 8.6 mg tablet (Natural 8.6 mg PO DAILY #30 tabs 07/30/24 Senna Laxative) methocarbamol 750 mg tablet 1,500 mg (2 x 750 mg) PO TID 5 09/03/24 days #30 tabs prednisone 20 mg tablet 40 mg (2 x 20 mg) PO DAILY 5 days 09/03/24 #10 tabs Allergies Allergy/AdvReac Type Severity Reaction Status Date / Time No Known Drug Allergies Allergy Unknown Unknown Verified 07/30/24 08:26 (NKDA) allergy reaction [facility] Disclaimer: The information contained in this section may have been updated after the patient was seen, as this information can be updated by other users. Medical History (Updated 09/03/24 @ 11:34 by Bao Jenkins MD) Hypertension Diabetes GERD (gastroesophageal reflux disease) Surgical History (Updated 11/17/23 @ 02:26 by Jacquelin Valera RN) History of open heart surgery Social History (Updated 11/17/23 @ 03:29 by Jacquelin Valera RN) Smoking Status: Former smoker alcohol intake: former current occupational status: disabled Travel in the last 8 weeks: None housing: house lives independently: Yes marital status: service: Yes ([employer] ) status: retired branch: [employer] current occupational exposures/hazards: No Have you lived/traveled outside [place] in past 30 days?: No Contact w/someone who lives/traveled outside US past 30 days?: No Exposure to someone with infectious disease in past 14 days?: No Do you have a fever (greater than 100.4 F or 38 C)?: No Have you tested positive for COVID-19: No Exposed to someone with COVID-19 in past 14 days?: No Do you have a sore throat?: No Do you have a cough?: No Do you have any weakness?: No Do you have any diarrhea?: No Are you experiencing any unusual bleeding?: No Do you have any muscle aches/pain?: No Do you have any abdominal pain?: No Are you experiencing loss of taste or smell?: No Other Medical History Have you received the Flu Vaccine for this season: No (AMA) Have you received the Pneumonia Vaccine: No (AMA) ROS Obtained: Yes All systems reviewed & no additional complaints except as documented Physical Exam General General appearance: alert Head Head exam: atraumatic and normocephalic Eye Eye exam: Present normal appearance, PERRL and EOMI Neck Neck exam: Present normal inspection, full ROM and trachea midline Respiratory Respiratory exam: Absent respiratory distress, wheezes, stridor, accessory muscle use or prolonged expiratory phase Cardiovascular Cardiovascular exam: Present other (Pulses equal symmetric in upper and lower extremities) Abdominal Exam Abdominal exam: Present soft; Absent distention, tenderness or pulsatile mass Extremities Exam Extremities exam: Present other (Significant pain with flexion and external rotation of hip. Not shortened or rotated on its own. Neurovascularly intact. No outward signs of injury or deformity. No true groin/hip tenderness. Maneuvers elicit pain going from the lower back down the buttock and posterior left thigh.); Absent edema Neurological Exam Neurological exam: Present alert, oriented X3 and CN II-XII intact; Absent motor sensory deficit Skin Skin exam: Present warm and dry; Absent diaphoresis or erythema Medical Decision Making Medical Records Medical records reviewed: Yes I reviewed the patient's medical records. Screening: Per USPSTF and CDC recommendations, given the prevalence of disease in our region, it is our hospital?s policy to screen for HIV and viral Hepatitis for all patients aged 18 and over and those with ongoing risk factors. Jose Rafael Inquiry Pt receiving controlled substance: No Jose Rafael was queried for this patient: No Vital Signs: 09/03/24 09:22 09/03/24 09:28 09/03/24 09:46 Temperature 97.6 F Temperature Source Oral Pulse Rate 65 63 Pulse Rate [Radial] 70 Respiratory Rate 18 Blood Pressure 182/80 H 161/66 H Blood Pressure [Right Arm] 182/80 H Blood Pressure Mean [Right Arm] 114 Blood Pressure Source [Right Arm] Automatic Cuff Blood Pressure Position [Right Arm] Sitting 02 Sat by Pulse Oximetry 100 100 100 Oxygen Delivery Method Room Air Room Air Room Air 09/03/24 10:01 09/03/24 10:31 09/03/24 10:46 Temperature Temperature Source Pulse Rate 59 L 60 60 Pulse Rate [Radial] Respiratory Rate Blood Pressure 162/62 H 159/64 H 157/62 H Blood Pressure [Right Arm] Blood Pressure Mean [Right Arm] Blood Pressure Source [Right Arm] Blood Pressure Position [Right Arm] 02 Sat by Pulse Oximetry 99 100 100 Oxygen Delivery Method Room Air Room Air Room Air 09/03/24 11:01 Temperature Temperature Source Pulse Rate 58 L Pulse Rate [Radial] Respiratory Rate Blood Pressure 168/62 H Blood Pressure [Right Arm] Blood Pressure Mean [Right Arm] Blood Pressure Source [Right Arm] Blood Pressure Position [Right Arm] 02 Sat by Pulse Oximetry 100 Oxygen Delivery Method Room Air Orders (Tests/Meds): ED MEDICATIONS Discontinued Medications Generic Name Dose Route Start Last Admin Trade Name Yoandy PRN Reason Stop Dose Admin Lidocaine 1 each 09/03/24 09:53 09/03/24 10:12 Lidocaine 5% Transdermal Patch TP 09/03/24 09:54 1 each ONCE ONE Administration Methocarbamol 1,500 mg 09/03/24 09:53 09/03/24 10:11 Methocarbamol 500mg Tablet PO 09/03/24 09:54 1,500 mg ONCE ONE Administration Prednisone 40 mg 09/03/24 09:53 09/03/24 10:11 Prednisone 20mg Tab PO 09/03/24 09:54 40 mg ONCE ONE Administration ORDERS Category Date Time Status CT bony pelvis Stat Cat Scan 09/03/24 10:05 Completed HIV Combo Stat Lab 09/03/24 09:39 Ordered Hepatitis C Ab Qual. W/ RFX Stat Lab 09/03/24 09:39 Ordered Medical Decision Narrative: 73-year-old with his hypertension, hyperlipidemia CA D, CABG, presenting with left hip pain. He states that about 2 to 3 weeks prior to this he was getting out of his car, twisted on his left hip, had immediate pain that almost made him fall. Since that time, has had constant mild pain, but gets more severe with activity. Currently mild in intensity, but with ranging hip, sharp and intense. Radiates from lower back down buttock to lateral aspect of left hip. Also goes posteriorly intermittently. No bowel or bladder dysfunction, weakness, fevers or chills. No trauma to the hip in the past. History was obtained via conversation with patient. On arrival, patient hemodynamically stable, alert, oriented x4, appropriate, GCS 15, moving all extremities spontaneously, pupils equal and reactive to light. Full physical exam performed and significant for well-appearing male in no acute distress at rest. Significant pain with flexion and external rotation of hip. Not shortened or rotated on its own. Neurovascularly intact. No outward signs of injury or deformity. No true groin/hip tenderness. Maneuvers elicit pain going from the lower back down the buttock and posterior left thigh. No midline spinal tenderness. Differential includes sprain, strain, fracture, neurovascular injury, osteonecrosis, disc herniation, among others. Patient was given lidocaine patch, Robaxin p.o., prednisone p.o. and CT bony pelvis was ordered out of concern for CAD, blood flow restriction, mild trauma, and potential fracture versus osteonecrosis. On independent interpretation, no acute bony abnormality of the pelvis or hip. On reevaluation, patient resting comfortably and states he actually feels much better. Given patient presentation, workup, history, this most likely represents acute lumbar radiculopathy with left-sided sciatica. Because patient at baseline without signs or symptoms of clinical decompensation, deemed appropriate for discharge. Results were relayed to patient who voiced understanding and were agreeable to outpatient management and follow up. I discussed my clinical impression with patient and answered all questions. At this time, the evidence for any other entities in the differential is insufficient to warrant any further testing or ED observation. This was explained as well. Advisory was given that persistent or worsening symptoms require further evaluation. I confirmed the understanding of this discussion. Government Employee disclaimer Much of this encounter note is an electronic security administrator spoken language to printed text. Electronic security administrator of the spoken language may permit errors. Although I have reviewed the note, some errors may still exist. Critical Care Critical Care Time Critical Care Time: No
--- NOTE | 2024-09-03 10:05 | CT_ITS ---
FINAL REPORT TECHNIQUE: Axial CT of the pelvis without contrast was performed. This study was performed with techniques to keep radiation doses as low as reasonably achievable, (ALARA). Individualized dose reduction techniques using automated exposure control or adjustment of mA and/or kV according to the patient's size were employed. CLINICAL HISTORY: acute on chronic L hip pain, rule out osteonecrosis COMPARISON: None FINDINGS: No fracture or evidence of bone destruction. No abnormal mineralization to indicate advanced AVN. There are moderate degenerative changes of the bilateral hips. There are small bilateral inguinal hernias containing fat. Advanced degenerative changes are noted of the lower lumbar spine. IMPRESSION: No obvious AVN or fracture. MRI would be more sensitive for detection of AVN if patient is a candidate for such. Reviewed, Interpreted and Dictated by Carlita Ball MD Transcribed by Brandee Knapp Authenticated and [facility]
[2024-09-03] MEDS: METHOCARBAMOL 500MG TABLET 1500 MG PO (10:11)
[2024-09-03] MEDS: predniSONE 20MG TAB 40 MG PO (10:11)
[2024-09-03] MEDS: LIDOCAINE 5% TRANSDERMAL PATCH 1 EACH TP (10:12)
--- NOTE | 2024-09-03 11:20 | PC.NURSE ---
ROUNDED ON PT NO NEEDS AT THIS TIME, CALL LIGHT IN REACH
--- NOTE | 2024-09-03 11:21 | PC.NURSE ---
DR STINSON AT BEDSIDE TO REEVALUATE PT
== END 2024-09-03 11:45 | disposition home or self-care (01) ==
PROVIDERS: Emergency Provider Emergency Medicine; PCP Family Medicine
DX: M54.16 Radiculopathy, lumbar region (principal); M54.32 Sciatica, left side; M54.50 Low back pain, unspecified; M25.552 Pain in left hip
CPT/HCPCS: 72192; 99283

== ENCOUNTER 2024-09-07 04:51 | Emergency (ER) | payer MEDICARE, SELFPAY ==
[2024-09-07] VITALS (7 sets, daily range): BP systolic 108–186; BP diastolic 52–82; PULSE 56–67; RESP 20; TEMP 36.8; O2SAT 93–99; BMI 29.0
--- NOTE | 2024-09-07 05:00 | CT_ITS ---
PROCEDURE INFORMATION: Exam: CTA Abdomen and Pelvis With Contrast Exam date and time: 09/07/2024 6:15 AM Age: 73 years old Clinical indication: Abdominal pain; Epigastric; Additional info: Epigastric pain/pressure; Diffuse tender TECHNIQUE: Imaging protocol: Computed tomographic angiography of the abdomen and pelvis with contrast. Exam focused on the arteries. 3D rendering (Not supervised by radiologist): MIP and/or 3D reconstructed images were created by the technologist. Radiation optimization: All CT scans at this facility use at least one of these dose optimization techniques: automated exposure control; mA and/or kV adjustment per patient size (includes targeted exams where dose is matched to clinical indication); or iterative reconstruction. Contrast material: ISOVUE; Contrast volume: 80 ml; Contrast route: INTRAVENOUS (IV); COMPARISON: CT ANGIO ABDOMEN PELVIS 07/30/2024 8:44 AM FINDINGS: Diaphragm: Sliding-type hiatal hernia. Aorta: Infrarenal abdominal aortic ectasia. Atherosclerotic disease of the aorta, moderate. Celiac trunk and mesenteric arteries: Narrowing of the celiac ostia with good distal reconstitution. Narrowing of the superior mesenteric artery ostia with good distal reconstitution. Renal arteries: Stenosis of the proximal right renal artery by about 50-75%. Stenosis of the left renal artery by about 50-75%. Right iliac arteries: No occlusion or significant stenosis. Left iliac arteries: No occlusion or significant stenosis. Other arteries: Postprocedural change of the proximal right lower extremity arterial vasculature without acute finding. Liver: Mild undulating contour of the liver suggesting possible cirrhosis. Gallbladder and biliary ducts: Cholelithiasis with heterogeneous appearance of the gallbladder. Gallbladder is somewhat prominent. Pancreas: Unremarkable. No mass. No ductal dilation. Spleen: Prominent spleen. Adrenal glands: Nodular thickening of the left adrenal gland without definitive mass or lesion. Kidneys and ureters: Unremarkable. No solid mass. No hydronephrosis. Stomach and bowel: [id number] stool burden. Appendix: No evidence of appendicitis. Intraperitoneal space: Unremarkable. No free air. No significant fluid collection. Lymph nodes: Unremarkable. No enlarged lymph nodes. Urinary bladder: Unremarkable. No mass. Reproductive: Unremarkable as visualized. Bones/joints: Diffuse degenerative change of the visualized osseous structures. No acute or aggressive osseous abnormality. Soft tissues: Unremarkable. IMPRESSION: 1. No acute vascular findings. 2. Perhaps mild findings of cirrhosis and portal hypertension. 3. Findings of which can be seen in cholecystitis, correlate clinically. Right upper quadrant ultrasound can be performed for further assessment. 4. Stable hiatal hernia.
--- NOTE | 2024-09-07 05:00 | ECG_ITS ---
APPROVED REPORT Exam: Resting ECG HR:58 bpm ECG Measurements Heart Rate 58 AXES [place] 98 P 259 QRSd 88 QRS 68 QT 448 T 47 QTc 444 Conclusion SINUS BRADYCARDIA NONSPECIFIC ST & T-WAVE ABNORMALITY No stemi Electronically signed by : DEE DEE LUU, 09/07/2024 07:10:39
--- NOTE | 2024-09-07 05:00 | CT_ITS ---
PROCEDURE INFORMATION: Exam: CTA Chest With Contrast Exam date and time: 09/07/2024 6:15 AM Age: 73 years old Clinical indication: Pain; Chest pressure; Additional info: Epigastric pressure, dizziness, chest pain TECHNIQUE: Imaging protocol: Computed tomographic angiography of the chest with contrast. Exam focused on the arteries. 3D rendering (Not supervised by radiologist): MIP and/or 3D reconstructed images were created by the technologist. Radiation optimization: All CT scans at this facility use at least one of these dose optimization techniques: automated exposure control; mA and/or kV adjustment per patient size (includes targeted exams where dose is matched to clinical indication); or iterative reconstruction. Contrast material: ISOVUE; Contrast volume: 80 ml; Contrast route: INTRAVENOUS (IV); COMPARISON: CT ANGIO CHEST 04/11/2024 7:49 PM FINDINGS: Pulmonary arteries: Normal. No pulmonary emboli. Aorta: Atherosclerotic disease of the aortic arch, [id number]. Lungs: Scattered pulmonary mosaicism. Nonspecific subtle subsolid nodules are appreciated in the posteroinferior aspect of the left upper lobe, the largest of which is seen peripherally measuring 12 x 9 mm (series 5, image 53). Basilar scarring/atelectasis. Pleural spaces: Unremarkable. No pneumothorax. No pleural effusion. Heart: Unremarkable. No cardiomegaly. No pericardial effusion. Coronary arteries: Heavy coronary calcified atherosclerotic disease. Postsurgical change of the coronary vasculature. Lymph nodes: Calcified mediastinal lymph nodes. Diaphragm: Hiatal hernia. Gallbladder and biliary ducts: Cholelithiasis. Heterogeneity of the gallbladder wall. Stomach: Surgical clips at the gastroesophageal junction. Bones/joints: Status post sternotomy. Diffuse degenerative changes of the visualized osseous structures. No acute or aggressive osseous abnormality. Findings compatible with DISH. Soft tissues: Unremarkable. IMPRESSION: 1. No pulmonary embolus. 2. Nonspecific lung findings which can be seen in infection/inflammation. Recommend three-month follow-up to assess for stability. 3. Findings which can be seen in cholecystitis, correlate clinically. Consider right upper quadrant ultrasound for further assessment. 4. Hiatal hernia which appears stable from prior cross-sectional comparison.
--- NOTE | 2024-09-07 05:12 | [facility].EDCP ---
Discharge Plan Disposition Patient Disposition: Left Against Medical Advice Chief Complaint: Abdominal Pain Prescriptions Prescriptions: No Action meclizine 25 mg tablet 25 mg PO DAILY 30 Days Qty: 90 Patient Comments: gabapentin 800 mg tablet 800 mg PO BID 30 Days Qty: 90 Patient Comments: carvedilol 12.5 mg tablet 12.5 mg PO BID 90 Days Qty: 180 Patient Comments: atorvastatin 80 mg tablet 80 mg PO DAILY 90 Days Qty: 90 Patient Comments: losartan 25 mg tablet 25 mg PO DAILY 90 Days Qty: 90 Patient Comments: glimepiride 1 mg tablet 1 mg PO DAILY 90 Days Qty: 90 Patient Comments: pantoprazole 40 mg tablet,delayed release (DR/EC) 40 mg PO DAILY 90 Days Qty: 90 Patient Comments: take 1 tablet by mouth once daily clopidogrel 75 mg tablet 75 mg PO DAILY 90 Days Qty: 90 Patient Comments: take 1 tablet by mouth once daily acetaminophen-codeine 300-15 mg tablet 1 tab PO Q4HP PRN (Reason: Moderate Pain (Scale Score 5-6)) benzonatate [benzonatate] 100 mg capsule 100 mg PO TIDP PRN (Reason: Cough) Qty: 30 0RF guaifenesin [Mucinex] 600 mg tablet extended release 12hr 600 - 1,200 mg PO BIDP PRN (Reason: Congestion) Qty: 30 0RF polyethylene glycol 3350 [Miralax] 17 gram/dose powder 17 g PO BID Qty: 1020 0RF sennosides [Natural Senna Laxative] 8.6 mg tablet 8.6 mg PO DAILY Qty: 30 0RF docusate calcium [Stool Softener (docusate alfonso)] 240 mg capsule 240 mg PO DAILY Qty: 30 0RF furosemide 40 MG tablet 40 mg PO BID aspirin 325 MG tablet 325 mg PO DAILY carbidopa-levodopa 25-100 mg tablet extended release 1 tab PO BID Patient Comments: TAKE 1 TABLET BY MOUTH TWICE DAILY temazepam 30 mg capsule 30 mg PO HS PRN (Reason: Sleep) Patient Comments: TAKE 1 CAPSULE BY MOUTH AT NIGHT NEEDED FOR SLEEP methocarbamol 750 mg tablet 1,500 mg PO TID 5 Days Qty: 30 0RF prednisone 20 mg tablet 40 mg PO DAILY 5 Days Qty: 10 0RF Referrals Follow up/Referrals: Provider,Referral, MD [Primary Care Provider] - See instructions Clinical Impressions Clinical Impression: Abdominal pain, epigastric, Acute cholecystitis Instructions Patient Instructions: DI for Acute Abdominal Pain Print Language Print Language: Amharic Discharge ED Provider: Lucian Green HPI <Yonas Garsia MD - Last Filed: 09/07/24 06:47> General Chief Complaint: Abdominal Pain Stated Complaint: abd pain, pressure Time Seen by Provider: 09/07/24 05:00 History of Present Illness HPI narrative: 73-year-old male with history of CAD and previous open heart surgery, diabetes, GERD, hypertension presents to the ER with 30 minutes of epigastric/lower chest abdominal pain/pressure with associated lightheadedness, nausea. He denies any vomiting or diarrhea, reports he has chronic constipation but his last bowel movement was yesterday. Nonbloody, nonmelanotic. He reports no numbness, tingling, or weakness. He denies having difficulty breathing. He reports he wishes he could throw up because he thinks he might feel better. He denies any tobacco, alcohol, or illicit drug use. He denies having a sensation like this in the past. He has had previous abdominal surgeries. He reports he takes a water pill but did not take it in the last 24 hours because he had things to do yesterday and could not be near restroom frequently enough. He denies fevers or other associated symptoms at this time. Pain is nonradiating. Patient reports yesterday his carvedilol dose was increased from 12.5 to 25mg. Patient believes this is contributing to his symptoms Related Data Home Medications ?Medication ?Instructions ?Recorded ?Confirmed atorvastatin 80 mg tablet 80 mg PO DAILY High cholesterol 90 11/03/17 11/17/23 days ##90 carvedilol 12.5 mg tablet 12.5 mg PO BID High Blood Pressure 11/03/17 11/17/23 90 days ##180 clopidogrel 75 mg tablet 75 mg PO DAILY Platelet Inhibitor 11/03/17 11/17/23 90 days ##90 gabapentin 800 mg tablet 800 mg PO BID Pain 30 days ##90 11/03/17 11/17/23 glimepiride 1 mg tablet 1 mg PO DAILY Diabetes 90 days ##90 11/03/17 11/17/23 losartan 25 mg tablet 25 mg PO DAILY . 90 days ##90 11/03/17 11/17/23 meclizine 25 mg tablet 25 mg PO DAILY dizziness 30 days 11/03/17 11/17/23 ##90 pantoprazole 40 mg tablet,delayed 40 mg PO DAILY Acid Reflux 90 days 11/03/17 11/17/23 release ##90 aspirin 325 mg tablet 325 mg PO DAILY Heart Health 03/01/18 11/17/23 furosemide 40 mg tablet 40 mg PO BID Fluid 03/01/18 11/17/23 acetaminophen 300 mg-codeine 15 mg 1 tab PO Q4HP PRN Moderate Pain 07/10/18 11/17/23 tablet (Scale Score 5-6) carbidopa ER 25 mg-levodopa 100 mg 1 tab PO BID 11/17/23 11/17/23 tablet,extended release temazepam 30 mg capsule 30 mg PO HS PRN Sleep 11/17/23 11/17/23 Previous Rx's ?Medication ?Instructions ?Recorded benzonatate 100 mg capsule 100 mg PO TIDP PRN Cough #30 caps 08/26/23 guaifenesin 600 mg tablet, 600 - 1,200 mg (1 - 2 x 600 mg) PO 08/26/23 extended release 12 hr (Mucinex) BIDP PRN Congestion #30 tabs docusate calcium 240 mg capsule 240 mg PO DAILY #30 caps 07/30/24 (Stool Softener (docusate calcium)) polyethylene glycol 3350 17 17 g PO BID #1,020 grams 07/30/24 gram/dose oral powder (Miralax) sennosides 8.6 mg tablet (Natural 8.6 mg PO DAILY #30 tabs 07/30/24 Senna Laxative) methocarbamol 750 mg tablet 1,500 mg (2 x 750 mg) PO TID 5 09/03/24 days #30 tabs prednisone 20 mg tablet 40 mg (2 x 20 mg) PO DAILY 5 days 09/03/24 #10 tabs Allergies Allergy/AdvReac Type Severity Reaction Status Date / Time No Known Drug Allergies Allergy Unknown Unknown Verified 07/30/24 08:26 (NKDA) allergy reaction [facility] [place] <Yonas Garsia MD - Last Filed: 09/07/24 06:47> [facility] Disclaimer: The information contained in this section may have been updated after the patient was seen, as this information can be updated by other users. Medical History (Updated 09/07/24 @ 09:40 by Lucian Green MD) Hypertension Diabetes GERD (gastroesophageal reflux disease) Surgical History (Updated 11/17/23 @ 02:26 by Jacquelin Valera, RN) History of open heart surgery Social History (Updated 11/17/23 @ 03:29 by Jacquelin Valera, RN) Smoking Status: Never smoker alcohol intake: former current occupational status: disabled Travel in the last 8 weeks: None housing: house lives independently: Yes marital status: service: Yes ([place] ) status: retired branch: [employer] current occupational exposures/hazards: No Have you lived/traveled outside [place] in past 30 days?: No Contact w/someone who lives/traveled outside US past 30 days?: No Exposure to someone with infectious disease in past 14 days?: No Do you have a fever (greater than 100.4 F or 38 C)?: No Have you tested positive for COVID-19: No Exposed to someone with COVID-19 in past 14 days?: No Do you have a sore throat?: No Do you have a cough?: No Do you have any weakness?: No Do you have any diarrhea?: No Are you experiencing any unusual bleeding?: No Do you have any muscle aches/pain?: No Do you have any abdominal pain?: Yes Are you experiencing loss of taste or smell?: No Other Medical History Have you received the Flu Vaccine for this season: No (AMA) Have you received the Pneumonia Vaccine: No (AMA) <Yonas Garsia MD - Last Filed: 09/07/24 06:47> ROS Obtained: Yes Systems reviewed as appropriate & no additional complaints except as documented Per HPI Physical Exam <Yonas Garsia MD - Last Filed: 09/07/24 06:47> General General appearance: alert and in no apparent distress Comment: Appears older than stated age, pale, holding his epigastric region but nontoxic-appearing Head Head exam: atraumatic and normocephalic Eye Eye exam: Present PERRL and EOMI ENT ENT exam: Present mucous membranes moist Neck Neck exam: Present normal inspection and full ROM Chest Chest inspection: Present symmetric chest wall rise Respiratory Respiratory exam: Present normal lung sounds bilaterally; Absent respiratory distress, wheezes or stridor Cardiovascular Cardiovascular exam: Present regular rate, normal rhythm and systolic murmur Abdominal Exam Abdominal exam: Present soft, tenderness and guarding (Voluntary); Absent distention, rebound or rigidity Abdominal tenderness: Present epigastrium and moderate Extremities Exam Extremities exam: Present full ROM and normal capillary refill; Absent edema or calf tenderness Neurological Exam Neurological exam: Present alert, oriented X3 and normal gait; Absent motor sensory deficit Psychiatric Psychiatric exam: Present normal affect and normal mood Skin Skin exam: Present warm and dry HEART Score <Yonas Garsia MD - Last Filed: 09/07/24 06:47> HEART Score HEART Score assessment performed?: Yes History (anamnesis): Moderately suspicious ECG: Non-specific disturbance Age: >65 years Risk factors: Atherosclerosis history Troponin: </= normal limit HEART Score: 6 <Lucian Green MD - Last Filed: 09/07/24 09:40> HEART Score HEART Score: 6 Critical Care <Yonas Garsia MD - Last Filed: 09/07/24 06:47> Critical Care Time Critical Care Time: No Medical Decision Making <Yonas Garsia MD - Last Filed: 09/07/24 06:47> Medical Records Medical records reviewed: Yes I reviewed the patient's medical records. MR Comment: Patient had a similar presentation in July 2024 and was evaluated in our ER. At that time he was identified to have constipation. He was discharged with a bowel regimen. 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 Jose Rafael Inquiry Pt receiving controlled substance: No Vital Signs Vital Signs: 09/07/24 05:13 09/07/24 07:01 09/07/24 07:30 Temperature 98.2 F Temperature Source Oral Pulse Rate 63 56 L Pulse Rate [Right] 67 Respiratory Rate 20 Blood Pressure 163/82 H 186/52 H Blood Pressure [Right Arm] 141/64 H Blood Pressure Mean [Right Arm] 89 02 Sat by Pulse Oximetry 95 93 L 98 Oxygen Delivery Method Room Air Room Air Room Air 09/07/24 08:30 09/07/24 09:00 09/07/24 09:32 Temperature Temperature Source Pulse Rate 61 66 60 Pulse Rate [Right] Respiratory Rate Blood Pressure 138/69 145/67 H 108/63 L Blood Pressure [Right Arm] Blood Pressure Mean [Right Arm] 02 Sat by Pulse Oximetry 99 94 L 99 Oxygen Delivery Method Room Air Room Air Room Air Lab Data Labs: Lab Results 09/07/24 05:05: WBC 4.5 L, RBC 3.65 L, Hgb 10.1 L, Hct 33.5 L, MCV 91.8, MCH 27.7, MCHC 30.1 L, RDW 15.5, Plt Count 185, MPV 10.0, Neut % (Auto) 63.6, Lymph % (Auto) 23.2, Dyer % (Auto) 8.2, Eos % (Auto) 4.6, Baso % (Auto) 0.2, Neut # (Auto) 2.9, Lymph # (Auto) 1.1, Dyer # (Auto) 0.4, Eos # (Auto) 0.2, Baso # (Auto) 0.0, PT 10.6, INR 0.94, Sodium 140, Potassium 4.0, Chloride 102, Carbon Dioxide 30, Anion Gap 12.0, BUN 8 L, Creatinine 0.60 L, Estimated Creat Clear 77, Estimated GFR 132, Est GFR ( Amer) 160, Glucose 154 H, Lactate 1.2, Calcium 8.8, Total Bilirubin 0.8, AST 72 H, ALT 15, Alkaline Phosphatase 74, Troponin I < 0.01, NT-Pro-B Natriuret Pep 672 H, Total Protein 7.1, Albumin 4.3, Globulin 2.8, Albumin/Globulin Ratio 1.5, Lipase 155 09/07/24 05:05 09/07/24 05:05 Response Orders (Tests/Meds): ED MEDICATIONS Generic Name Dose Route Start Last Admin Trade Name Freq PRN Reason Stop Dose Admin Piperacillin Sod/Tazobactam 100 mls @ 200 mls/hr 09/07/24 08:15 09/07/24 09:08 Sod 4.5 gm/ Sodium Chloride IV 09/17/24 08:14 200 mls/hr Q6H JAJA Administration Sodium Chloride 10 ml 09/07/24 06:24 09/07/24 06:24 Sodium Chloride 0.9% 10ml Syr (Rad Only) IV 10/07/24 06:23 10 ml NEEDED PRN Administration Maintain IV Site Discontinued Medications Generic Name Dose Route Start Last Admin Trade Name Freq PRN Reason Stop Dose Admin Belladonna Alkaloids 60 ml 09/07/24 06:00 09/07/24 06:03 Belladonna Alkaloids 60 Ml Ml PO 09/07/24 06:01 60 ml ONCE ONE Administration Hydromorphone HCl 0.5 mg 09/07/24 06:00 09/07/24 06:04 Hydromorphone 2mg/Ml Syringe IV 09/07/24 06:01 0.5 mg ONCE ONE Administration Lactated Ringer's 500 mls @ 999 mls/hr 09/07/24 05:03 09/07/24 05:18 Lactated Ringer's 500ml IV 09/07/24 05:33 999 mls/hr .Q31M ONE Administration Iopamidol 80 ml 09/07/24 06:24 09/07/24 06:24 Iopamidol-370 (76%);100ml Bottle IV 09/07/24 06:25 80 ml ONCE ONE Administration Morphine Sulfate 2 mg 09/07/24 05:03 09/07/24 05:18 Morphine 2mg/Ml Syringe IV 09/07/24 05:04 2 mg ONCE ONE Administration Nitroglycerin 0.4 mg 09/07/24 05:04 09/07/24 05:19 Nitroglycerin 0.4mg Sl Tablet SL 09/07/24 05:05 0.4 mg ONCE ONE Administration Ondansetron HCl 4 mg 09/07/24 05:03 09/07/24 05:18 Ondansetron 4mg/2ml Vial IV 09/07/24 05:04 4 mg ONCE ONE Administration Sodium Chloride 50 ml 09/07/24 06:24 09/07/24 06:24 0.9 % Sodium Chloride 50 Ml Vial IV 09/07/24 06:25 50 ml ONCE ONE Administration ORDERS Category Date Time Status CT angio abdomen pelvis Stat Cat Scan 09/07/24 05:[address] angio chest PE protocol Stat Cat Scan 09/07/24 05:00 Completed US RUQ [US abdomen limited] Stat Exams 09/07/24 07:30 Completed Complete Blood Count Auto Diff Stat Lab 09/07/24 05:05 Completed Comprehensive Metabolic Panel Stat Lab 09/07/24 05:05 Completed HIV Combo Stat Lab 09/07/24 05:05 Received Hepatitis C Ab Qual. W/ RFX Stat Lab 09/07/24 05:05 Received Lactic Acid Stat Lab 09/07/24 05:05 Completed Lipase Stat Lab 09/07/24 05:05 Completed NT Pro Brain Natriuretic Pep. Stat Lab 09/07/24 05:05 Completed Prothrombin Time INR Stat Lab 09/07/24 05:05 Completed Troponin I Stat Lab 09/07/24 05:05 Completed MDM Narrative Medical Decision Narrative: In summary, this 73-year-old male with comorbidities described in the HPI presents to the emergency department today with epigastric abdominal pain and pressure. On initial evaluation patient is hemodynamically stable, afebrile, tenderness to palpation of the epigastric region with voluntary guarding, no rebound, abdomen is not rigid, patient overall appears pale but has good capillary refill, no peripheral edema, he does have a systolic murmur but cardiopulmonary exam is otherwise reassuring. Differential diagnosis includes but is not limited to ACS, electrolyte abnormality, dehydration, I considered PE, mesenteric ischemia, anemia, leukocytosis, cholelithiasis, cholecystitis, pancreatitis, among others. Based on these concerns, I ordered serum labs, cardiac workup, CT imaging. ECG personally interpreted demonstrates sinus bradycardia, rate 58, normal axis, normal QTc, no STEMI. Patient received small bolus of IV fluids, morphine, Zofran for treatment. Labs personally reviewed demonstrate mild leukopenia, anemia, nonactionable, platelets normal, PT/INR normal, CMP with mild elevation in AST but no other transaminitis, initial troponin undetectably low less than 0.01, BNP elevated at 672, no prior comparison, lipase normal at 155, lactic normal at 1.2 which is reassuring On reassessment patient still complained of pain so he received a dose of Dilaudid as well as GI cocktail prior to CT scans. CT abdomen pelvis personally interpreted does not demonstrate obvious acute intra-abdominal pathology, patient does have cholelithiasis without cholecystitis, radiology read pending. Patient handed off to Dr. Green at physician shift change for further management and disposition pending radiology reads and further reassessment. <Lucian Green MD - Last Filed: 09/07/24 09:40> Vital Signs Vital Signs: 09/07/24 05:13 09/07/24 07:01 09/07/24 07:30 Temperature 98.2 F Temperature Source Oral Pulse Rate 63 56 L Pulse Rate [Right] 67 Respiratory Rate 20 Blood Pressure 163/82 H 186/52 H Blood Pressure [Right Arm] 141/64 H Blood Pressure Mean [Right Arm] 89 02 Sat by Pulse Oximetry 95 93 L 98 Oxygen Delivery Method Room Air Room Air Room Air 09/07/24 08:30 09/07/24 09:00 09/07/24 09:32 Temperature Temperature Source Pulse Rate 61 66 60 Pulse Rate [Right] Respiratory Rate Blood Pressure 138/69 145/67 H 108/63 L Blood Pressure [Right Arm] Blood Pressure Mean [Right Arm] 02 Sat by Pulse Oximetry 99 94 L 99 Oxygen Delivery Method Room Air Room Air Room Air Lab Data Labs: Lab Results 09/07/24 05:05: WBC 4.5 L, RBC 3.65 L, Hgb 10.1 L, Hct 33.5 L, MCV 91.8, MCH 27.7, MCHC 30.1 L, RDW 15.5, Plt Count 185, MPV 10.0, Neut % (Auto) 63.6, Lymph % (Auto) 23.2, Dyer % (Auto) 8.2, Eos % (Auto) 4.6, Baso % (Auto) 0.2, Neut # (Auto) 2.9, Lymph # (Auto) 1.1, Dyer # (Auto) 0.4, Eos # (Auto) 0.2, Baso # (Auto) 0.0, PT 10.6, INR 0.94, Sodium 140, Potassium 4.0, Chloride 102, Carbon Dioxide 30, Anion Gap 12.0, BUN 8 L, Creatinine 0.60 L, Estimated Creat Clear 77, Estimated GFR 132, Est GFR ( Amer) 160, Glucose 154 H, Lactate 1.2, Calcium 8.8, Total Bilirubin 0.8, AST 72 H, ALT 15, Alkaline Phosphatase 74, Troponin I < 0.01, NT-Pro-B Natriuret Pep 672 H, Total Protein 7.1, Albumin 4.3, Globulin 2.8, Albumin/Globulin Ratio 1.5, Lipase 155 Response Orders (Tests/Meds): ED MEDICATIONS Generic Name Dose Route Start Last Admin Trade Name Freq PRN Reason Stop Dose Admin Piperacillin Sod/Tazobactam 100 mls @ 200 mls/hr 09/07/24 08:15 09/07/24 09:08 Sod 4.5 gm/ Sodium Chloride IV 09/17/24 08:14 200 mls/hr Q6H JAJA Administration Sodium Chloride 10 ml 09/07/24 06:24 09/07/24 06:24 Sodium Chloride 0.9% 10ml Syr (Rad Only) IV 10/07/24 06:23 10 ml NEEDED PRN Administration Maintain IV Site Discontinued Medications Generic Name Dose Route Start Last Admin Trade Name Freq PRN Reason Stop Dose Admin Belladonna Alkaloids 60 ml 09/07/24 06:00 09/07/24 06:03 Belladonna Alkaloids 60 Ml Ml PO 09/07/24 06:01 60 ml ONCE ONE Administration Hydromorphone HCl 0.5 mg 09/07/24 06:00 09/07/24 06:04 Hydromorphone 2mg/Ml Syringe IV 09/07/24 06:01 0.5 mg ONCE ONE Administration Lactated Ringer's 500 mls @ 999 mls/hr 09/07/24 05:03 09/07/24 05:18 Lactated Ringer's 500ml IV 09/07/24 05:33 999 mls/hr .Q31M ONE Administration Iopamidol 80 ml 09/07/24 06:24 09/07/24 06:24 Iopamidol-370 (76%);100ml Bottle IV 09/07/24 06:25 80 ml ONCE ONE Administration Morphine Sulfate 2 mg 09/07/24 05:03 09/07/24 05:18 Morphine 2mg/Ml Syringe IV 09/07/24 05:04 2 mg ONCE ONE Administration Nitroglycerin 0.4 mg 09/07/24 05:04 09/07/24 05:19 Nitroglycerin 0.4mg Sl Tablet SL 09/07/24 05:05 0.4 mg ONCE ONE Administration Ondansetron HCl 4 mg 09/07/24 05:03 09/07/24 05:18 Ondansetron 4mg/2ml Vial IV 09/07/24 05:04 4 mg ONCE ONE Administration Sodium Chloride 50 ml 09/07/24 06:24 09/07/24 06:24 0.9 % Sodium Chloride 50 Ml Vial IV 09/07/24 06:25 50 ml ONCE ONE Administration ORDERS Category Date Time Status CT angio abdomen pelvis Stat Cat Scan 09/07/24 05:[address] angio chest PE protocol Stat Cat Scan 09/07/24 05:00 Completed US RUQ [US abdomen limited] Stat Exams 09/07/24 07:30 Completed Complete Blood Count Auto Diff Stat Lab 09/07/24 05:05 Completed Comprehensive Metabolic Panel Stat Lab 09/07/24 05:05 Completed HIV Combo Stat Lab 09/07/24 05:05 Received Hepatitis C Ab Qual. W/ RFX Stat Lab 09/07/24 05:05 Received Lactic Acid Stat Lab 09/07/24 05:05 Completed Lipase Stat Lab 09/07/24 05:05 Completed NT Pro Brain Natriuretic Pep. Stat Lab 09/07/24 05:05 Completed Prothrombin Time INR Stat Lab 09/07/24 05:05 Completed Troponin I Stat Lab 09/07/24 05:05 Completed MDM Narrative Medical Decision Narrative: In summary, this 73-year-old male with comorbidities described in the HPI presents to the emergency department today with epigastric abdominal pain and pressure. On initial evaluation patient is hemodynamically stable, afebrile, tenderness to palpation of the epigastric region with voluntary guarding, no rebound, abdomen is not rigid, patient overall appears pale but has good capillary refill, no peripheral edema, he does have a systolic murmur but cardiopulmonary exam is otherwise reassuring. Differential diagnosis includes but is not limited to ACS, electrolyte abnormality, dehydration, I considered PE, mesenteric ischemia, anemia, leukocytosis, cholelithiasis, cholecystitis, pancreatitis, among others. Based on these concerns, I ordered serum labs, cardiac workup, CT imaging. ECG personally interpreted demonstrates sinus bradycardia, rate 58, normal axis, normal QTc, no STEMI. Patient received small bolus of IV fluids, morphine, Zofran for treatment. Labs personally reviewed demonstrate mild leukopenia, anemia, nonactionable, platelets normal, PT/INR normal, CMP with mild elevation in AST but no other transaminitis, initial troponin undetectably low less than 0.01, BNP elevated at 672, no prior comparison, lipase normal at 155, lactic normal at 1.2 which is reassuring On reassessment patient still complained of pain so he received a dose of Dilaudid as well as GI cocktail prior to CT scans. CT abdomen pelvis personally interpreted does not demonstrate obvious acute intra-abdominal pathology, patient does have cholelithiasis without cholecystitis, radiology read pending. Patient handed off to Dr. Green at physician shift change for further management and disposition pending radiology reads and further reassessment. MD Peter: I assumed care for this patient at approximately [address] abdomen/pelvis revealing cholelithiasis without evidence of cholecystitis. No significant bowel loop abnormalities. No other acute intra-abdominal pathology. Troponin undetectable however pending second, potentially third troponin if patient remains symptomatic. Radiology report suggest possible cholecystitis however to follow-up with right upper quadrant ultrasound. Patient's AST was mildly elevated at 72 but no other significant transaminitis. Total bilirubin normal. Initiated on Zosyn. Consulted general surgery who recommended admission to hospital medicine for cardiac clearance. Discussed with hospital medicine who is in agreement with admission, however patient stated that he left his phone at home and did not remember anyone's phone numbers and had nobody to bring him his belongings and so ultimately left AGAINST MEDICAL ADVICE. Patient promised to return to the emergency department as soon as he picked up his phone from home. Plan for admission as soon as patient returns with no need for any further workup except for cardiac clearance. Administered a dose of Zosyn prior to discharge
[2024-09-07] MEDS: ONDANSETRON 4MG/2ML VIAL 4 MG IV (05:18)
[2024-09-07] MEDS: RINGERS SOLUTION,LACTATED 500 ML 999 ML IV (05:18)
[2024-09-07] MEDS: MORPHINE 2MG/ML SYRINGE 2 MG IV (05:18)
[2024-09-07] MEDS: NITROGLYCERIN 0.4MG SL TABLET 0.4 MG SL (05:19)
[2024-09-07 05:22] LABS: Basophils % 0.2 % (0.1-2.0); Eosinophils # 0.2 K/mm3 (0.0-0.4); Eosinophils % 4.6 % (0.1-12.0); Hematocrit 33.5 % (42.0-52.0); Hemoglobin 10.1 g/dL (14.1-18.0); Lymphocytes # 1.1 K/mm3 (0.7-4.5); Lymphocytes % 23.2 % (10-50); Mean Corpuscular HGB Conc 30.1 g/dL (31.8-35.4); Mean Corpuscular Hemoglobin 27.7 pg (27.0-31.2); Mean Corpuscular Volume 91.8 fl (80-94); Monocytes # 0.4 K/mm3 (0.1-1.0); Monocytes % 8.2 % (1.7-9.3); Neutrophils # 2.9 K/mm3 (1.8-7.8); Neutrophils % 63.6 % (37.0-80.0); Platelet Count 185 K/mm3 (142-424); Red Blood Count 3.65 M/mm3 (4.60-6.20); Red Cell Distribution Width 15.5 % (11.5-17.5); White Blood Count 4.5 K/mm3 (4.8-10.8)
[2024-09-07 05:28] LABS: Alanine Aminotransferase 15 U/L (12-78); Albumin Level 4.3 g/dl (3.5-5.0); Albumin/Globulin Ratio 1.5 (1.1-1.8); Alkaline Phosphatase 74 U/L (38-126); Aspartate Amino Transferase 72 U/L (17-59); Bilirubin,Total 0.8 mg/dl (0.2-1.3); Blood Urea Nitrogen 8 mg/dl (9-20); Calcium 8.8 mg/dl (8.4-10.2); Carbon Dioxide 30 mmol/L (22.0-30.0); Chloride 102 mmol/L (98-107); Creatinine Clearance Estimated 77 mL/min (50-200); Estimated Glomerular Filt Rate 132 ml/min (>60); GFR (African American) 160 ML/MIN (>60); Globulin 2.8 g/dL (1.3-3.2); Glucose 154 mg/dl (74-100); Lipase 155 U/L (23-300); Sodium 140 mmol/L (136-145); Total Protein,Serum 7.1 g/dl (6.3-8.2)
[2024-09-07 05:29] LABS: INR 0.94 (0.9-1.1); Lactic Acid 1.2 mmol/L (0.7-2.1); Prothrombin Time 10.6 seconds (10.1-12.5)
[2024-09-07 05:40] LABS: NT Pro Brain Natriuretic Pep. 672 pg/mL (0-125)
[2024-09-07 05:52] LABS: Troponin I < 0.01 ng/ml (0.00-0.034)
[2024-09-07] MEDS: BELLADONNA ALKALOIDS 60 ML ML PO (06:03)
[2024-09-07] MEDS: HYDROMORPHONE 2MG/ML SYRINGE 0.5 MG IV (06:04)
[2024-09-07] MEDS: 0.9 % SODIUM CHLORIDE 50 ML VIAL IV (06:24)
[2024-09-07] MEDS: IOPAMIDOL-370 (76%);100ML BOTTLE 80 ML IV (06:24)
[2024-09-07] MEDS: SODIUM CHLORIDE 0.9% 10ML SYR (RAD ONLY) 10 ML IV (06:24)
--- NOTE | 2024-09-07 07:30 | US_ITS ---
FINAL REPORT TECHNIQUE: Multiple transverse and longitudinal images of the right upper quadrant were obtained. CLINICAL HISTORY: eval cholecystitis COMPARISON: 07/30/2024 FINDINGS: Numerous gallstones are again noted. There is gallbladder wall thickening with trace surrounding fluid. No biliary ductal dilatation is appreciated. No focal liver lesion is seen. Limited portions of the right kidney are unremarkable. IMPRESSION: 1. Findings suspicious for acute cholecystitis. Correlate with clinical presentation. 2. No evidence of biliary obstruction Reviewed, Interpreted and Dictated by Carlita Ball MD Transcribed by Brandee Knapp Authenticated and . [facility]
--- NOTE | 2024-09-07 07:50 | PC.NURSE ---
PT GONE TO ULTRASOUND AT THIS TIME
--- NOTE | 2024-09-07 08:59 | PC.NURSE ---
ER MD spoke with dr tse and said patient would need cardiac clearance, then er md paged hospital medicine for admission and cardiac clearance
--- NOTE | 2024-09-07 09:06 | PC.NURSE ---
Dr. Green at BS to speak with patient
[2024-09-07] MEDS: PIPERACILLIN/TAZO 4.5 GM in 0.9 % SODIUM CHLORIDE 100 ML IV (09:08)
--- NOTE | 2024-09-07 09:43 | PC.NURSE ---
per er has spoken to hospitalist and he will admit patient when he returns back from going home and getting a few things together and contacting people to let them know he will be admitted to the hospital
[2024-09-07 09:50] LABS: HIV Combo NEGATIVE (Negative)
[2024-09-07 09:58] LABS: Hepatitis C Ab Qual. W/ RFX NEGATIVE (Negative)
== END 2024-09-07 09:48 | disposition left against medical advice (07) ==
PROVIDERS: Emergency Medicine; Emergency Provider Student in an Organized Health Care Education/Training Program
DX: K81.0 Acute cholecystitis (principal); R10.13 Epigastric pain; R42 Dizziness and giddiness; R11.0 Nausea
CPT/HCPCS: 71275; 74174; 76705; 80053; 83605; 83690; 83880; 84484; 85025; 85610; 86803; 87389; 93005; 96361; 96365; 96374; 96375; 99285; J1171; J2270; J2405; J2543; J7120; Q9967

== ENCOUNTER 2024-09-07 10:40 | Observation (INO) | payer MEDICARE, SELFPAY ==
[2024-09-07] VITALS (7 sets, daily range): BP systolic 129–157; BP diastolic 60–79; PULSE 57–65; RESP 18–20; TEMP 36.6–36.8; O2SAT 96–99; BMI 29.7; BMI 29.8
--- NOTE | 2024-09-07 10:50 | ED_ITS ---
Discharge Plan Disposition Patient Disposition: Admitted Clinical Impressions Clinical Impression: Acute cholecystitis Discharge ED Provider: Lucian Green General Adult HPI General Chief complaint: Abdominal Pain Stated complaint: abd pain Time Seen by Provider: 09/07/24 10:45 Mode of Arrival: Ambulatory Source of Information: Patient Limitations: No Limitations History of Present Illness HPI narrative: This is a 73-year-old male with a history of CABG who presents from home after leaving AMA earlier this morning. Presented for epigastric abdominal pain and was diagnosed with acute cholecystitis. Administered a dose of antibiotics and was planning to admit the hospital, however patient stated that he needed to go home to take care of some things. Ultimately left AMA and re-presents for admission. Related Data Home Medications ?Medication ?Instructions ?Recorded ?Confirmed atorvastatin 80 mg tablet 80 mg PO DAILY 90 days ##90 11/03/17 09/07/24 carvedilol 12.5 mg tablet 12.5 mg PO BID 90 days ##180 11/03/17 09/07/24 clopidogrel 75 mg tablet 75 mg PO DAILY 90 days ##90 11/03/17 09/07/24 gabapentin 800 mg tablet 800 mg PO TID 30 days ##90 11/03/17 09/07/24 pantoprazole 40 mg tablet,delayed 40 mg PO DAILY 90 days ##90 11/03/17 09/07/24 release carbidopa ER 25 mg-levodopa 100 mg 1 tab PO BID 11/17/23 09/07/24 tablet,extended release temazepam 30 mg capsule 30 mg PO HS PRN Sleep 11/17/23 09/07/24 aspirin 81 mg tablet,delayed 81 mg PO DAILY 09/07/24 09/07/24 release Allergies Allergy/AdvReac Type Severity Reaction Status Date / Time No Known Drug Allergies Allergy Unknown Unknown Verified 07/30/24 08:26 (NKDA) [facility] Dis[facility]: The information contained in this section may have been updated after the patient was seen, as this information can be updated by other users. Medical History (Updated 09/07/24 @ 14:26 by Rosario Ray MD) Lung nodule Pulmonary hypertension Hypertension Diabetes GERD (gastroesophageal reflux disease) Surgical History (Updated 09/07/24 @ 13:27 by Glo Perales APRN) History of open heart surgery Social History (Updated 11/17/23 @ 03:29 by Jacquelin Valera RN) Smoking Status: Never smoker alcohol intake: former current occupational status: disabled Travel in the last 8 weeks: None housing: house lives independently: Yes marital status: service: Yes ([place] ) status: retired branch: [employer] current occupational exposures/hazards: No Have you lived/traveled outside US in past 30 days?: No Contact w/someone who lives/traveled outside US past 30 days?: No Exposure to someone with infectious disease in past 14 days?: No Do you have a fever (greater than 100.4 F or 38 C)?: No Have you tested positive for COVID-19: No Exposed to someone with COVID-19 in past 14 days?: No Do you have a sore throat?: No Do you have a cough?: No Do you have any weakness?: No Do you have any diarrhea?: No Are you experiencing any unusual bleeding?: No Do you have any muscle aches/pain?: No Do you have any abdominal pain?: Yes Are you experiencing loss of taste or smell?: No Other Medical History Have you received the Flu Vaccine for this season: No (AMA) Have you received the Pneumonia Vaccine: No (AMA) ROS Obtained: Yes All systems reviewed & no additional complaints except as documented Physical Exam General General appearance: alert and in no apparent distress Eye Eye exam: Present normal appearance, PERRL and EOMI Respiratory Respiratory exam: Present normal lung sounds bilaterally; Absent respiratory distress Cardiovascular Cardiovascular exam: Present regular rate and normal rhythm Abdominal Exam Abdominal exam: Present soft, distention, tenderness (Epigastrium and right upper quadrant) and Narvaez's sign; Absent guarding or rebound Extremities Exam Extremities exam: Present normal inspection Neurological Exam Neurological exam: Present alert and oriented X3 Skin Skin exam: Present warm and dry Medical Decision Making Medical Records Medical records reviewed: Yes I reviewed the patient's medical records. Screening: Per USPSTF and CDC recommendations, given the prevalence of disease in our region, it is our hospital?s policy to screen for HIV and viral Hepatitis for all patients aged 18 and over and those with ongoing risk factors. MR Comment: Emergency Department note from earlier today notable for presentation as noted above Jose Rafael Inquiry Pt receiving controlled substance: No Vital Signs: 09/07/24 10:41 09/07/24 11:00 09/07/24 11:30 Temperature 98.2 F Temperature Source Oral Pulse Rate 65 59 L Pulse Rate [Right Radial] 62 Respiratory Rate 20 Blood Pressure 157/62 H 129/67 Blood Pressure [Right Arm] 155/60 H Blood Pressure Mean [Right Arm] 91 02 Sat by Pulse Oximetry 99 99 99 Oxygen Delivery Method Room Air Room Air 09/07/24 11:43 09/07/24 12:00 09/07/24 12:04 Temperature 98.2 F Temperature Source Pulse Rate 62 62 Pulse Rate [Right Radial] Respiratory Rate 20 Blood Pressure 150/75 H 150/75 H Blood Pressure [Right Arm] Blood Pressure Mean [Right Arm] 02 Sat by Pulse Oximetry 96 Oxygen Delivery Method Room Air Room Air Room Air Orders (Tests/Meds): ED MEDICATIONS Generic Name Dose Route Start Last Admin Trade Name Freq PRN Reason Stop Dose Admin Acetaminophen 650 mg 09/07/24 12:48 Acetaminophen 325mg Tab PO 10/07/24 12:47 Q4HP PRN Fever or Mild Pain (1-3) Hydrocodone Bitart/Acetaminophen 1 tab 09/07/24 12:48 Hydrocodone/Apap 5/325 Mg Tablet PO 10/07/24 12:47 Q4HP PRN Moderate Pain (4-6) Hydrocodone Bitart/Acetaminophen 2 tab 09/07/24 12:48 Hydrocodone/Apap 5/325 Mg Tablet PO 10/07/24 12:47 Q4HP PRN Severe Pain (7-10) Enoxaparin Sodium 40 mg 09/08/24 09:00 Enoxaparin 40mg/0.4ml Syringe SUBCUT 10/08/24 08:59 DAILY JAJA Lactated Ringer's 1,000 mls @ 75 mls/hr 09/07/24 13:00 09/07/24 13:32 Lactated Ringer's 1000 Ml Bag IV 10/07/24 12:59 75 mls/hr .[id number] JAJA Administration Insulin Human Lispro 0 unit 09/07/24 16:30 Humalog 100 Units/Ml 10ml Vial (Ssi) SUBCUT 10/07/24 16:29 ACHS JAJA Protocol Ondansetron HCl 4 mg 09/07/24 12:48 Ondansetron 4mg/2ml Vial IV 10/07/24 12:47 Q6HP PRN Nausea Sodium Chloride 10 ml 09/07/24 12:48 Sodium Chloride 0.9% 10ml Flush Syringe IV 10/07/24 12:47 NEEDED PRN Maintain IV Site ORDERS Category Date Time Status Cardiology Consult [Consult to Cardiology] [CONS] Cons 09/07/24 11:30 Active Routine CA echo doppler complete Routine Y 09/07/24 11:29 Completed Medical Decision Narrative: In summary, this 73-year-old male with a history of coronary artery disease status post CABG presents to the emergency department today with epigastric abdominal pain and acute cholecystitis after leaving AMA earlier today. On initial evaluation patient is afebrile, hemodynamically stable, nontoxic-ap pearing. Differential diagnosis includes but is not limited to cholelithiasis, cholecystitis, pancreatitis. No indication for further laboratory workup or CT imaging with IV contrast, though this was considered given that this was performed earlier today and diagnosis was confirmed. Consulted hospital medicine for admission and patient was ultimately admitted to the hospital as previously planned Critical Care Critical Care Time Critical Care Time: No
--- NOTE | 2024-09-07 11:29 | CA_ITS ---
APPROVED REPORT EXAM: Comprehensive 2D, Doppler, and color-flow Echocardiogram Car Customizer: Christine Atwood, KAREN, RVS Ht: 5 ft 7 in Wt: 190lbs BSA: 1.98 BP: 108/63 mmHg Rhythm: Atrial Fibrillation Indications: CAD-CABG 2002, CP, Epigatric pain, GERD, Acute cholecystitis, Pancretits, GERMÁN 2D Dimensions IVSd 0.69 cm LVEF (Visual) 70.50 % PWd 0.94 cm EF AP4 49.80 % LVDd 5.77 cm GL Strain -17.7 % LVDs 3.43 cm Left Atrium 4.05 cm M-Mode Dimensions RVDd 1.96 cm (0.9-2.6) LA Diam 4.91 cm (1.9-4.0) LVDd 5.74 cm (3.5-5.7) LVDs 3.77 cm (3.5-5.7) IVSd 0.68 cm (0.6-1.1) PWd 0.89 cm (0.6-1.1) EF (Teich) 63.80% EPSs 0.65 cm FS 35.20% EDV (Teich) 167.90 mL TAPSE 1.65 (<1.7) ESV (Teich) 60.80 mL LV Diastology E Decel Time 120 (160-240 msec) E/A Ratio 1.89 MED A' 3.70 cm/s LAT A' 4.10 cm/s Aortic Valve NANCY Index 0.92 cm2/m2 AoV Peak Robinson. 205.0 (50-130 cm/s) AO Peak GR. 16.90 mmHg AO Mean GR. 8.90 (<5 mmHg) AO VTI 48.2 (18-25 cm) NANCY (VTI) 1.87 (2.5-4.5 cm2) Mitral Valve MV A Velocity 57.0 (40-130 cm/s) E/A Ratio 1.89 Pulmonary Valve PV Peak Velocity 87.0 (50-150 cm/s) OR End VMAX 299.0 cm/s Tricuspid Valve TR P. Velocity 364.00 cm/s RAP Estimate 10.00 mmHg RVSP 63.00 mmHg Left Ventricle The left ventricle is normal size. The left ventricular systolic function is normal. The left ventricular ejection fraction is within the normal range. There is increased LV wall thickness. There is normal LV segmental wall motion. Diastolic function is indeterminate. LVEF is 55%. Right Ventricle Right ventricle is moderately dilated. Right ventricle is mildly hypokinetic. Atria Left atrium is moderately dilated. Right atrium is moderately dilated. There is no Doppler evidence of interatrial shunt. Aortic Valve The aortic valve is mildly thickened. There is no aortic valvular stenosis. Trace aortic regurgitation. Mitral Valve The mitral valve leaflets are mildly thickened. No evidence of mitral valve stenosis. Mild mitral regurgitation. Tricuspid Valve The tricuspid valve leaflets are thin and pliable.Mild tricuspid regurgitation. RVSP is 50-55 mm moderate. Pulmonic Valve The pulmonary valve is normal in structure. Trace pulmonic regurgitation. Great Vessels The aortic root is normal in size. The ascending aorta is not well-visualized. IVC is normal in size and collapses >50% with inspiration. Pericardium There is no pericardial effusion. Other Information Study Quality: Fair Conclusion Normal LV systolic function. Moderate RV dilation with mild reduction in RV function. Mild MR, mild TR. Elevated RVSP 50 to 55 mmHg. Electronically signed by : Yuli Joel MD 09/07/2024 12:50:45
--- NOTE | 2024-09-07 11:31 | PC.NURSE ---
spoke with housekeeping department worker for bed assignment, pt being admitted per hospital medicine
--- NOTE | 2024-09-07 11:51 | PC.NURSE ---
echo at bedside
--- NOTE | 2024-09-07 12:18 | PC.NURSE ---
echo done at bedside
--- NOTE | 2024-09-07 12:43 | PC.NURSE ---
pt to 2nd floor via WC with SRNA from the floor.
--- NOTE | 2024-09-07 13:11 | HMH.PHAINT1 ---
Pharmacy Intervention Comments: VERIFIED MEDICATIONS WITH OUTPATIENT PHARMACY, CONFIRMED MEDICATIONS WITH PATIENT.
--- NOTE | 2024-09-07 13:22 | EXP.CARD.CON ---
History of Present Illness History of Present Illness Consult date: 09/07/24 Requesting physician: Will Michaud Chief complaint: epigstric pain History of present illness: This is a 73-year-old white male with past medical history of CABG who presented to hospital with complaints of epigastric pain and has been diagnosed with acute cholecystitis. Patient was started on Zosyn and general surgery was consulted. Cardiology was asked to consult for surgical risk assessment. EKG upon arrival to emergency department is sinus bradycardia rate of 58 without acute ischemic changes noted. Echo shows normal LV systolic function with moderate RV dilation and mild reduction in RV function, biatrial dilation, mild MR and TR, elevated RVSP 50-55. Serial troponins are negative. [facility] Disclaimer: The information contained in this section may have been updated after the patient was seen, as this information can be updated by other users. 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: No Have you lived/traveled outside US in past 30 days?: No Contact w/someone who lives/traveled outside US past 30 days?: No Exposure to someone with infectious disease in past 14 days?: No Do you have a fever (greater than 100.4 F or 38 C)?: No Have you tested positive for COVID-19: No Exposed to someone with COVID-19 in past 14 days?: No Do you have a sore throat?: No Do you have a cough?: No Do you have any weakness?: No Do you have any diarrhea?: No Are you experiencing any unusual bleeding?: No Do you have any muscle aches/pain?: No Do you have any abdominal pain?: Yes Are you experiencing loss of taste or smell?: No Review of Systems Review of Systems Review of systems:: pertinent systems reviewed and negative unless documented below Exam Data for Last 24 hours Vital signs and Labs for Last 24 Hours: Temp Pulse Resp BP Pulse Ox O2 Del Method 97.9 F 57 L 18 147/78 H 99 Room Air 09/07/24 12:50 09/07/24 12:50 09/07/24 12:50 09/07/24 12:50 09/07/24 12:50 09/07/24 12:50 I & O for Last 24 hours: Intake & Output 09/04/24 09/05/24 09/06/24 09/07/24 23:59 23:59 23:59 23:59 Weight 185 lb 2 oz Constitutional Constitutional: no acute distress *Routine Respiratory Exam Respiratory: Present CTA bilaterally and symmetric chest movement *Routine Cardiovascular Exam Cardiovascular: Present RRR, Normal S1 and Normal S2 *Routine Abdominal Exam Abdominal: Present soft and normoactive bowel sounds; Absent tenderness *Routine Extremities Exam Extremities: Present full ROM and normal capillary refill; Absent edema *Routine Skin Exam Skin: Present intact, dry and warm Detailed Neck Exam: Thyroids Thyroid: Absent bruit Meds Home Medications and Allergies Home Medications ?Medication ?Instructions ?Recorded ?Confirmed ?Type atorvastatin 80 mg tablet 80 mg PO DAILY 90 days ##90 11/03/17 09/07/24 History carvedilol 12.5 mg tablet 12.5 mg PO BID 90 days ##180 11/03/17 09/07/24 History clopidogrel 75 mg tablet 75 mg PO DAILY 90 days ##90 11/03/17 09/07/24 History gabapentin 800 mg tablet 800 mg PO TID 30 days ##90 11/03/17 09/07/24 History pantoprazole 40 mg tablet,delayed 40 mg PO DAILY 90 days ##90 11/03/17 09/07/24 History release carbidopa ER 25 mg-levodopa 100 mg 1 tab PO BID 11/17/23 09/07/24 History tablet,extended release temazepam 30 mg capsule 30 mg PO HS PRN Sleep 11/17/23 09/07/24 History aspirin 81 mg tablet,delayed 81 mg PO DAILY 09/07/24 09/07/24 History release New Prescriptions to Start Prescriptions: Allergies Allergy/AdvReac Type Severity Reaction Status Date / Time No Known Drug Allergies Allergy Unknown Unknown Verified 07/30/24 08:26 (NKDA) allergy reaction Assessment and Plan *Assessment and plan (1) Acute cholecystitis: Status: Acute Category: Medical Code(s): K81.0 - Acute cholecystitis (2) Coronary artery disease: Status: Acute Category: Medical Code(s): I25.10 - Atherosclerotic heart disease of [place] coronary artery without angina pectoris (3) Hx of CABG: Status: Acute Category: Surgical Code(s): Z95.1 - Presence of aortocoronary bypass graft Plan Acute cholecystitis History of coronary artery disease History of CABG EKG without acute ischemic changes noted Serial troponins negative Echo shows normal LV systolic function, moderate RV dilation with mild reduction in RV function, biatrial dilation, mild MR and TR, elevated RVSP 50-55 CV summary 09/07/2024: Patient is a moderate risk from a cardiology perspective for surgical intervention. We do recommend patient is evaluated by pulmonology prior to surgery given mild reduction in RV function and elevated RVSP. If cleared for surgery by pulmonology can hold Plavix for procedure.
[2024-09-07] MEDS: LACTATED RINGERS 1000ML 1,000 ML 75 ML IV (13:32)
--- NOTE | 2024-09-07 13:33 | P.CONS_ITS ---
History of Present Illness *Admission Date: 09/07/24 *Reason for visit:: Acute cholecystitis *History of present illness: Patient is a 73-year-old male with a history of coronary artery disease with previous CABG, diabetes, GERD, hypertension. He presented to the emergency department early this morning on 09/07/2024 with onset of epigastric and lower chest discomfort with pain and pressure. He had associated nausea. He underwent thorough evaluation in the emergency department and was found to have tenderness to palpation in the epigastrium with voluntary guarding. He underwent CT angiogram of the abdomen and pelvis which revealed perhaps mild findings of cirrhosis and portal hypertension. Findings of which can be seen in cholecystitis, correlate clinically. Right upper quadrant ultrasound can be performed for further assessment. He did undergo gallbladder ultrasound which revealed findings suspicious for acute cholecystitis. Correlate with clinical presentation. No evidence of biliary obstruction. Specifically there was noted to be some appreciable gallbladder wall thickening with trace surrounding pericholecystic fluid. At that time discussion was held with general surgery and with the hospitalist and plan was for admission for inpatient management for acute cholecystitis with cardiology risk assessment. Patient reportedly left AGAINST MEDICAL ADVICE. Patient then returned to the emergency department a short time later and arrangements were made for admission. Patient does state that he feels somewhat better since admission. He has been seen by cardiology who deemed him a moderate risk and based on his echocardiogram recommend pulmonary evaluation prior to proceeding. [facility] Disclaimer: The information contained in this section may have been updated after the patient was seen, as this information can be updated by other users. 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: No Have you lived/traveled outside US in past 30 days?: No Contact w/someone who lives/traveled outside US past 30 days?: No Exposure to someone with infectious disease in past 14 days?: No Do you have a fever (greater than 100.4 F or 38 C)?: No Have you tested positive for COVID-19: No Exposed to someone with COVID-19 in past 14 days?: No Do you have a sore throat?: No Do you have a cough?: No Do you have any weakness?: No Do you have any diarrhea?: No Are you experiencing any unusual bleeding?: No Do you have any muscle aches/pain?: No Do you have any abdominal pain?: Yes Are you experiencing loss of taste or smell?: No Meds Home Medications and Allergies Home Medications ?Medication ?Instructions ?Recorded ?Confirmed ?Type atorvastatin 80 mg tablet 80 mg PO DAILY 90 days ##90 11/03/17 09/07/24 History carvedilol 12.5 mg tablet 12.5 mg PO BID 90 days ##180 11/03/17 09/07/24 History clopidogrel 75 mg tablet 75 mg PO DAILY 90 days ##90 11/03/17 09/07/24 History gabapentin 800 mg tablet 800 mg PO TID 30 days ##90 11/03/17 09/07/24 History pantoprazole 40 mg tablet,delayed 40 mg PO DAILY 90 days ##90 11/03/17 09/07/24 History release carbidopa ER 25 mg-levodopa 100 mg 1 tab PO BID 11/17/23 09/07/24 History tablet,extended release temazepam 30 mg capsule 30 mg PO HS PRN Sleep 11/17/23 09/07/24 History aspirin 81 mg tablet,delayed 81 mg PO DAILY 09/07/24 09/07/24 History release New Prescriptions to Start Prescriptions: Allergies Allergy/AdvReac Type Severity Reaction Status Date / Time No Known Drug Allergies Allergy Unknown Unknown Verified 07/30/24 08:26 (NKDA) allergy reaction Exam (Inpt) Vital signs and Labs for Last 24 Hours: Temp Pulse Resp BP Pulse Ox O2 Del Method 97.9 F 57 L 18 147/78 H 99 Room Air 09/07/24 12:50 09/07/24 12:50 09/07/24 12:50 09/07/24 12:50 09/07/24 12:50 09/07/24 12:50 I & O for Labs for Last 24 Hours: Intake & Output 09/05/24 09/06/24 09/07/24 09/08/24 11:59 11:59 11:59 11:59 Weight 190 lb 185 lb 2 oz Constitutional: chronically ill appearing Comment:: Pale appearing Respiratory: Present decreased breath sounds Cardiac: Present S1/S2 GI: Present soft and tenderness Comments:: Small umbilical hernia. Some tenderness in the right upper quadrant without guarding or rebound Rectal (male): Present deferred Assessment and Plan *Assessment and plan (1) Acute cholecystitis: Status: Acute Category: Medical Code(s): K81.0 - Acute cholecystitis Plan Medical management for acute cholecystitis at this time. He will need pulmonary assessment for risk prior to consideration of proceeding. If patient continues to show clinical improvement he may be able to be managed as an outpatient
--- NOTE | 2024-09-07 13:57 | PC.NURSE ---
pt doing well and independent, no pain since coming to floor. pt does report having bleeding hemorrhoids. walker at bs. cb wtihinreach and no needs at this time. updated pt contact: sister Oly Ortiz [phone]
--- NOTE | 2024-09-07 14:21 | EXP.PULM.CON ---
History of Present Illness History of present illness: Ms. Harley is a 73-year-old male no significant smoking history, or significant respiratory symptoms administered for dyspnea with exertion limiting inhalers or oxygen at baseline, significant secondhand smoke exposure presented here with abdominal discomfort concerning for acute cholecystitis had an echocardiogram done showed pulmonary hypertension with RVSP 50-55 with moderately dilated RV and pulmonary was called for further evaluation for perioperative risk assessment. History of rheumatoid arthritis and SLE, on Plaquenil, azathioprine monthly infusions. Following with [facility]. Admits stable symptoms [facility] Disclaimer: The information contained in this section may have been updated after the patient was seen, as this information can be updated by other users. Medical History (Updated 09/07/24 @ 14:26 by Rosario Ray MD) Lung nodule Pulmonary hypertension Hypertension Diabetes GERD (gastroesophageal reflux disease) Surgical History (Updated 09/07/24 @ 13:27 by Glo Perales APRN) History of open heart surgery Social History (Updated 11/17/23 @ 03:29 by Jacquelin Valera RN) Smoking Status: Never smoker alcohol intake: former current occupational status: disabled Travel in the last 8 weeks: None housing: house lives independently: Yes marital status: service: Yes ([place] ) status: retired branch: [employer] current occupational exposures/hazards: No Have you lived/traveled outside [place] in past 30 days?: No Contact w/someone who lives/traveled outside US past 30 days?: No Exposure to someone with infectious disease in past 14 days?: No Do you have a fever (greater than 100.4 F or 38 C)?: No Have you tested positive for COVID-19: No Exposed to someone with COVID-19 in past 14 days?: No Do you have a sore throat?: No Do you have a cough?: No Do you have any weakness?: No Do you have any diarrhea?: No Are you experiencing any unusual bleeding?: No Do you have any muscle aches/pain?: No Do you have any abdominal pain?: Yes Are you experiencing loss of taste or smell?: No Review of Systems Constitutional Constitutional: Denies anorexia, Denies body ache(s) and Denies fatigue Eyes Eyes: Denies eye discharge, Denies dry eyes, Denies irritation and Denies itchy eyes ENT Ears, Nose, Mouth, and Throat: Denies epistaxis, Denies facial pain, Denies lip swelling and Denies throat swelling *Cardiovascular Cardiovascular: Reports dyspnea on exertion *Respiratory Respiratory: Denies change in phlegm color, Reports chest congestion, Reports cough, Reports dyspnea on exertion, Denies excessive phlegm production, Denies hemoptysis, Denies pain on inspiration, Denies pain with cough and Denies wheezing *Gastrointestinal Gastrointestinal: Reports abdominal pain, Denies belching and Denies cramping *Musculoskeletal Musculoskeletal: Reports back pain, Reports limited range of motion, Reports myalgias and Reports other (No small joint swelling or Pain) Psychiatric Psychiatric: Denies homicidal ideation and Denies suicidal ideation Endocrine Endocrine: Denies fatigue and Denies heat intolerance Hematologic/Lymphatic Hematologic/Lymphatic: Denies easy bleeding and Denies lymphadenopathy Allergic/Immunologic Allergic/Immunologic: Denies itchy eyes, Denies lip swelling, Denies throat swelling and Denies wheezing Pulmonology Exam Inpatient Vital signs and Labs for Last 24 Hours: Temp Pulse Resp BP Pulse Ox O2 Del Method 97.9 F 57 L 18 147/78 H 99 Room Air 09/07/24 12:50 09/07/24 12:50 09/07/24 12:50 09/07/24 12:50 09/07/24 12:50 09/07/24 13:00 I & O for Labs for Last 24 Hours: Intake & Output 09/04/24 09/05/24 09/06/24 09/07/24 23:59 23:59 23:59 23:59 Weight 185 lb 2 oz Constitutional: Present mild distress Head: Present normocephalic and atraumatic ENT: Present normal exam, normal oropharynx and mucous membranes moist Neck: Present normal inspection and full ROM Respiratory: Present normal respiratory effort and able to speak in complete sentences; Absent prolonged expiratory phase, respiratory distress, wheezes, crackles or diminished air movement Cardiac: Present S1/S2, Tachycardia and radial pulses present GI: Present soft and distention Skin: Present intact; Absent cyanosis or jaundice Neuro: Present alert, awake and oriented x 3 Extremities: Present normal inspection; Absent clubbing or cyanosis Psychiatric: Present normal affect and cooperative Meds Home Medications and Allergies Home Medications ?Medication ?Instructions ?Recorded ?Confirmed ?Type atorvastatin 80 mg tablet 80 mg PO DAILY 90 days ##90 11/03/17 09/07/24 History carvedilol 12.5 mg tablet 12.5 mg PO BID 90 days ##180 11/03/17 09/07/24 History clopidogrel 75 mg tablet 75 mg PO DAILY 90 days ##90 11/03/17 09/07/24 History gabapentin 800 mg tablet 800 mg PO TID 30 days ##90 11/03/17 09/07/24 History pantoprazole 40 mg tablet,delayed 40 mg PO DAILY 90 days ##90 11/03/17 09/07/24 History release carbidopa ER 25 mg-levodopa 100 mg 1 tab PO BID 11/17/23 09/07/24 History tablet,extended release temazepam 30 mg capsule 30 mg PO HS PRN Sleep 11/17/23 09/07/24 History aspirin 81 mg tablet,delayed 81 mg PO DAILY 09/07/24 09/07/24 History release New Prescriptions to Start Prescriptions: Allergies Allergy/AdvReac Type Severity Reaction Status Date / Time No Known Drug Allergies Allergy Unknown Unknown Verified 07/30/24 08:26 (NKDA) allergy reaction Assessment and Plan *Assessment and plan (1) Pulmonary hypertension: Status: Acute Category: Medical Code(s): I27.20 - Pulmonary hypertension, unspecified (2) Lung nodule: Status: Acute Category: Medical Code(s): R91.1 - Solitary pulmonary nodule Plan Ms. Harley is a 73-year-old male no significant smoking history, or significant respiratory symptoms administered for dyspnea with exertion limiting inhalers or oxygen at baseline, significant secondhand smoke exposure presented here with abdominal discomfort concerning for acute cholecystitis had an echocardiogram done showed pulmonary hypertension with RVSP 50-55 with moderately dilated RV and pulmonary was called for further evaluation for perioperative risk assessment. History of rheumatoid arthritis and SLE, on Plaquenil, azathioprine monthly infusions. Following with [facility]. Admits stable symptoms CTA upon admission no evidence of pulmonary embolism. The noted left upper lobe pulm nodule remained stable from March 2024. Concerning left lower lobe minimal groundglass opacities. Afebrile. Hemodynamically stable. No evidence of leukocytosis. COVID-19 and flu PCR panel negative On room air saturating 95% and above. I do not see any absolute contraindication from pulmonary standpoint for the patient undergo cholecystectomy at this point of time. Patient would be mild to moderate risk for perioperative pulmonary complications. Recommend volume optimization prior to surgery. Plan: 6-minute walk testing DuoNebs 4 times daily as needed Volume optimization as per primary team and cardiology prior to surgery. Can consider RHC if deemed necessary
--- NOTE | 2024-09-07 17:23 | P.HPDS_ITS ---
General Admission date:: 09/07/24 *Admission Date: 09/07/24 *Chief complaint: Abdominal pain, nausea *History of present illness: Adapted from the ED's note: 73-year-old male with history of CAD and previous open heart surgery, diabetes, GERD, hypertension presents to the ER with 30 minutes of epigastric/lower chest abdominal pain/pressure with associated lightheadedness, nausea. He denies any vomiting or diarrhea, reports he has chronic constipation but his last bowel movement was yesterday. Nonbloody, nonmelanotic. He reports no numbness, tingling, or weakness. He denies having difficulty breathing. He reports he wishes he could throw up because he thinks he might feel better. He denies any tobacco, alcohol, or illicit drug use. He denies having a sensation like this in the past. He has had previous abdominal surgeries. He reports he takes a water pill but did not take it in the last 24 hours because he had things to do yesterday and could not be near restroom frequently enough. He denies fevers or other associated symptoms at this time. Pain is nonradiating. Both CT abdomen and gallbladder ultrasound confirmed acute cholecystitis. Patient initially left the ED AMA to get his phone from home but ultimately return to the hospital to be admitted. Case discussed with ED provider and decision was made to admit patient for acute cholecystitis. [facility] Disclaimer: The information contained in this section may have been updated after the patient was seen, as this information can be updated by other users. 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: No Have you lived/traveled outside US in past 30 days?: No Contact w/someone who lives/traveled outside US past 30 days?: No Exposure to someone with infectious disease in past 14 days?: No Do you have a fever (greater than 100.4 F or 38 C)?: No Have you tested positive for COVID-19: No Exposed to someone with COVID-19 in past 14 days?: No Do you have a sore throat?: No Do you have a cough?: No Do you have any weakness?: No Do you have any diarrhea?: No Are you experiencing any unusual bleeding?: No Do you have any muscle aches/pain?: No Do you have any abdominal pain?: No Are you experiencing loss of taste or smell?: No Other Medical History Have you received the Flu Vaccine for this season: Yes Have you received the Pneumonia Vaccine: Yes Exam Data for Last 24 hours Vital signs and Labs for Last 24 Hours: Temp Pulse Resp BP Pulse Ox O2 Del Method 97.9 F 57 L 18 147/78 H 99 Room Air 09/07/24 12:50 09/07/24 12:50 09/07/24 12:50 09/07/24 12:50 09/07/24 12:50 09/07/24 15:00 I & O for Last 24 hours: Intake & Output 09/04/24 09/05/24 09/06/24 09/07/24 23:59 23:59 23:59 23:59 Weight 83.971 kg Constitutional Constitutional: no acute distress *Routine HEENT Exam Head: Present normocephalic Eye: Present EOMI and PERRL ENT: Present mucous membranes moist *Routine Neck Exam Neck: Present supple; Absent lymphadenopathy *Routine Respiratory Exam Respiratory: Present CTA bilaterally *Routine Cardiovascular Exam Cardiovascular: Present RRR *Routine Abdominal Exam Abdominal: Present soft, normoactive bowel sounds and tenderness *Routine Rectal Exam Rectal:: deferred *Routine Genitalia Exam Genitalia:: deferred *Routine Extremities Exam Extremities: Absent cyanosis, clubbing or edema *Routine Skin Exam Skin: Present warm; Absent rash *Routine Neurological Exam Neurological: Present alert and oriented X3 Meds Home Medications and Allergies Home Medications ?Medication ?Instructions ?Recorded ?Confirmed ?Type atorvastatin 80 mg tablet 80 mg PO DAILY 90 days ##90 11/03/17 09/07/24 History carvedilol 12.5 mg tablet 12.5 mg PO BID 90 days ##180 11/03/17 09/07/24 History clopidogrel 75 mg tablet 75 mg PO DAILY 90 days ##90 11/03/17 09/07/24 History gabapentin 800 mg tablet 800 mg PO TID 30 days ##90 11/03/17 09/07/24 History pantoprazole 40 mg tablet,delayed 40 mg PO DAILY 90 days ##90 11/03/17 09/07/24 History release carbidopa ER 25 mg-levodopa 100 mg 1 tab PO BID 11/17/23 09/07/24 History tablet,extended release temazepam 30 mg capsule 30 mg PO HS PRN Sleep 11/17/23 09/07/24 History aspirin 81 mg tablet,delayed 81 mg PO DAILY 09/07/24 09/07/24 History release bacitracin zinc 500 unit/gram 1 applic topical BID #28 grams 09/19/24 Rx topical ointment New Prescriptions to Start Prescriptions: Allergies Allergy/AdvReac Type Severity Reaction Status Date / Time No Known Drug Allergies Allergy Unknown Unknown Verified 09/19/24 05:50 (NKDA) allergy reaction Hospital Course Hospital Course Hospital Course: Patient symptoms somewhat improved over 2 hours after being admitted. Due to complex cardiac history including CABG, cardiology was consulted for preoperative risk assessment during which he was an average risk. General surgery was consulted and would have evaluated patient, however patient decided he wanted to leave the hospital AGAINST MEDICAL ADVICE. He did have some tolerance to food intake but symptoms do not fully resolve. Risks were discussed including worsening of acute cholecystitis such including sepsis, patient understood but wanted to leave A. He was encouraged to follow-up with general surgery for further evaluation and management of acute cholecystitis. DS: Diagnosis Discharge Diagnosis (1) Pulmonary hypertension: Status: Acute Code(s): I27.20 - Pulmonary hypertension, unspecified (2) Lung nodule: Status: Acute Code(s): R91.1 - Solitary pulmonary nodule Discharge Plan Disposition Patient Disposition: Left Against Medical Advice Condition: Fair Patient Discharge Instructions Print Language: Sammarinese Providers Admit Provider: Will Michaud Attending Provider: Will Michaud
== END 2024-09-07 17:15 | disposition left against medical advice (07) ==
LOC: ER 10:53 → 2ND 11:41
PROVIDERS: Admitting Provider Student in an Organized Health Care Education/Training Program; Emergency Provider Student in an Organized Health Care Education/Training Program; PCP Emergency Medicine; Visit Provider Student in an Organized Health Care Education/Training Program
DX: K81.0 Acute cholecystitis (principal); I27.20 Pulmonary hypertension, unspecified; R91.1 Solitary pulmonary nodule; I25.10 Atherosclerotic heart disease of native coronary artery without angina pectoris; E11.9 Type 2 diabetes mellitus without complications; K21.9 Gastro-esophageal reflux disease without esophagitis; Z79.01 Long term (current) use of anticoagulants; Z95.1 Presence of aortocoronary bypass graft; Z79.899 Other long term (current) drug therapy; Z79.82 Long term (current) use of aspirin; Z53.29 Procedure and treatment not carried out because of patient's decision for other reasons
CPT/HCPCS: 93306; 99285; G0378; J7120

== ENCOUNTER 2024-09-19 05:36 | Emergency (ER) | payer MEDICARE, SELFPAY ==
[2024-09-19 05:39] VITALS: BP 211/78; PULSE 74; RESP 20; TEMP 36.5; O2SAT 98; BMI 28.2
--- NOTE | 2024-09-19 05:46 | XR_ITS ---
PROCEDURE INFORMATION: Exam: XR Left Wrist Exam date and time: 09/19/2024 6:06 AM Age: 73 years old Clinical indication: Injury or trauma; Fall; Blunt trauma (contusions or hematomas); Wrist; Left; Additional info: Fall 6h ago, minor swelling TECHNIQUE: Imaging protocol: Radiologic exam of the left wrist. Views: 3 or more views. COMPARISON: CR XR FOREARM LT 2V 12/11/2023 1:35 AM FINDINGS: Bones/joints: Normal. Soft tissues: Normal. IMPRESSION: No acute findings. Low threshold for re-evaluation in 7-10 days to assess for osseous healing especially if there is continued focal point tenderness.
--- NOTE | 2024-09-19 05:47 | ED_ITS ---
Discharge Plan Disposition Patient Disposition: Home, Self-Care Condition: Good Prescriptions Prescriptions: New bacitracin zinc 500 unit/gram ointment 1 applic topical BID Qty: 28 0RF No Action gabapentin 800 mg tablet 800 mg PO TID 30 Days Qty: 90 Patient Comments: carvedilol 12.5 mg tablet 12.5 mg PO BID 90 Days Qty: 180 Patient Comments: atorvastatin 80 mg tablet 80 mg PO DAILY 90 Days Qty: 90 Patient Comments: pantoprazole 40 mg tablet,delayed release (DR/EC) 40 mg PO DAILY 90 Days Qty: 90 Patient Comments: take 1 tablet by mouth once daily clopidogrel 75 mg tablet 75 mg PO DAILY 90 Days Qty: 90 Patient Comments: take 1 tablet by mouth once daily aspirin 81 mg Tablet,Delayed Release (Dr/Ec) 81 mg PO DAILY carbidopa-levodopa 25-100 mg tablet extended release 1 tab PO BID Patient Comments: TAKE 1 TABLET BY MOUTH TWICE DAILY temazepam 30 mg capsule 30 mg PO HS PRN (Reason: Sleep) Patient Comments: TAKE 1 CAPSULE BY MOUTH AT NIGHT NEEDED FOR SLEEP Referrals Follow up/Referrals: Alexis Vallejo MD [Primary Care Provider] - See instructions Activity Restrictions/Add. Instructions Additional Instructions/Restrictions: You were evaluated in the ER and are appropriate for discharge at this time. Keep your wounds clean and dry. Use the prescribed bacitracin ointment twice daily for the next 7 days. Keep the wounds wrapped and protected. Please call your primary care doctor and make an appointment for reevaluation. Return to the ER with new, worsening, or otherwise concerning symptoms. Clinical Impressions Clinical Impression: Skin tear of left forearm without complication Print Language Print Language: [place] Discharge ED Provider: Yonas Garsia General Adult HPI General Chief complaint: Extremity Injury, Upper Stated complaint: fall, lacerations L arm Time Seen by Provider: 09/19/24 05:40 History of Present Illness HPI narrative: 73-year-old male with history of diabetes, CABG, GERD, hypertension presents to the ER approximately 7 hours after a ground-level fall. Patient reports he was down on the ground with a fan before bed and lost his balance as he started to get up, he fell slightly sideways and scraped his left arm. Patient states he did not fall hard or far, he did not hit his head or lose consciousness, he has no pain. He reports because of the bleeding he called EMS. They evaluated him and reportedly wrapped his arm. He presents with this dressing in place. He states they recommended he come to the ER to be evaluated but he did not have anyone to pick him up after going to the hospital so he waited until this morning. Patient reports when he woke up this morning, he saw the blood had soaked through the dressing so he came to the ER for evaluation. Patient reports no pain, he just wants to make sure the wounds do not have to be repaired. He is ambulating independently, has full range of motion of the left upper extremity, he denies numbness, tingling, or weakness. Reports he otherwise feels at baseline and has no complaints or concerns. Related Data Home Medications ?Medication ?Instructions ?Recorded ?Confirmed atorvastatin 80 mg tablet 80 mg PO DAILY 90 days ##90 11/03/17 09/07/24 carvedilol 12.5 mg tablet 12.5 mg PO BID 90 days ##180 11/03/17 09/07/24 clopidogrel 75 mg tablet 75 mg PO DAILY 90 days ##90 11/03/17 09/07/24 gabapentin 800 mg tablet 800 mg PO TID 30 days ##90 11/03/17 09/07/24 pantoprazole 40 mg tablet,delayed 40 mg PO DAILY 90 days ##90 11/03/17 09/07/24 release carbidopa ER 25 mg-levodopa 100 mg 1 tab PO BID 11/17/23 09/07/24 tablet,extended release temazepam 30 mg capsule 30 mg PO HS PRN Sleep 11/17/23 09/07/24 aspirin 81 mg tablet,delayed 81 mg PO DAILY 09/07/24 09/07/24 release Previous Rx's ?Medication ?Instructions ?Recorded bacitracin zinc 500 unit/gram 1 applic topical BID #28 grams 09/19/24 topical ointment Allergies Allergy/AdvReac Type Severity Reaction Status Date / Time No Known Drug Allergies Allergy Unknown Unknown Verified 09/19/24 05:50 (NKDA) allergy reaction [facility] Disclaimer: The information contained in this section may have been updated after the patient was seen, as this information can be updated by other users. 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: No Have you lived/traveled outside US in past 30 days?: No Contact w/someone who lives/traveled outside US past 30 days?: No Exposure to someone with infectious disease in past 14 days?: No Do you have a fever (greater than 100.4 F or 38 C)?: No Have you tested positive for COVID-19: No Exposed to someone with COVID-19 in past 14 days?: No Do you have a sore throat?: No Do you have a cough?: No Do you have any weakness?: No Do you have any diarrhea?: No Are you experiencing any unusual bleeding?: No Do you have any muscle aches/pain?: No Do you have any abdominal pain?: No Are you experiencing loss of taste or smell?: No Other Medical History Have you received the Flu Vaccine for this season: Yes Have you received the Pneumonia Vaccine: Yes ROS Obtained: Yes Systems reviewed as appropriate & no additional complaints except as documented per hpi Physical Exam General General appearance: alert and in no apparent distress Comment: Ambulated independently into the ER Head Head exam: atraumatic and normocephalic Eye Eye exam: Present PERRL and EOMI ENT ENT exam: Present mucous membranes moist Neck Neck exam: Present normal inspection and full ROM; Absent tenderness Chest Chest inspection: Present symmetric chest wall rise Respiratory Respiratory exam: Present normal lung sounds bilaterally; Absent respiratory distress, wheezes or stridor Cardiovascular Cardiovascular exam: Present regular rate and normal rhythm Abdominal Exam Abdominal exam: Present soft; Absent distention or tenderness Extremities Exam Extremities exam: Present full ROM, normal capillary refill, joint swelling (Trace swelling by the left wrist but patient reports it is at baseline) and other (No other traumatic findings identified on thorough exam of the extremities; neurovascularly intact distal to left upper extremity injuries); Absent tenderness or edema Back Exam Back exam: Present full ROM; Absent tenderness, CVA tenderness (R) or CVA tenderness (L) Neurological Exam Neurological exam: Present alert, oriented X3, CN II-XII intact and normal gait; Absent motor sensory deficit Psychiatric Psychiatric exam: Present normal affect and normal mood Skin Skin exam: Present warm, dry and other (4 cm 3 corner shaped skin tear with associated ecchymosis on the radial aspect of the mid left forearm, hemostatic; small linear skin tear on the posterior aspect of the left wrist hemostatic; neither wound is gaping) Medical Decision Making Medical Records Medical records reviewed: Yes I reviewed the patient's medical records. Screening: Per USPSTF and CDC recommendations, given the prevalence of disease in our region, it is our hospital?s policy to screen for HIV and viral Hepatitis for all patients aged 18 and over and those with ongoing risk factors. MR Comment: Review of records demonstrates patient was recently admitted to the hospital for acute cholecystitis. He was evaluated by our surgeon while inpatient and plan for medical management. Surgeon recommended pulmonary assessment prior to any surgical planning if patient needed surgery. Review of hospitalist notes demonstrates patient had cholecystitis and was anticipating me dical management but decided to leave AMA because he was tolerating diet at the time. Records do not demonstrate that he ever returned for that complaint. Jose Rafael Inquiry Pt receiving controlled substance: No Vital Signs: 09/19/24 05:39 09/19/24 05:51 09/19/24 06:16 Temperature 97.7 F 98.0 F Temperature Source Oral Oral Pulse Rate 64 Pulse Rate [Apical] 74 Pulse Rate [Left] 74 Respiratory Rate 20 18 Blood Pressure 174/71 H Blood Pressure [Right Arm] 211/78 H Blood Pressure Mean [Right Arm] 122 Blood Pressure Source Automatic Cuff Blood Pressure Position Sitting 02 Sat by Pulse Oximetry 98 Oxygen Delivery Method Room Air Room Air Orders (Tests/Meds): ED MEDICATIONS Discontinued Medications Generic Name Dose Route Start Last Admin Trade Name Freq PRN Reason Stop Dose Admin Bacitracin 1 gm 09/19/24 05:58 09/19/24 06:01 Bacitracin Zinc Oint 30gm Tube TP 09/19/24 05:59 1 gm ONCE ONE Administration ORDERS Category Date Time Status Wrist XR left minimum 3 views [XR wrist LT min 3V] Stat Exams 09/19/24 05:46 Taken Medical Decision Narrative: In summary, this 73-year-old male with comorbidities described in the HPI which increase the amount of data to be reviewed as well as his overall morbidity, his diabetes also increases the risk of poor wound healing presents to the emergency department today with left arm wounds after ground-level fall 7 hours prior to arrival. On initial evaluation patient is hypertensive but otherwise hemodynami srini stable, afebrile, GCS 15, independently ambulatory into the ER, no neurologic deficits, patient has skin tears on the left arm with trace swelling at the left wrist but full range of motion as described in physical exam. Remaining exam does not demonstrate any traumatic injury. Patient reports he did not fully fall to the ground, he did not strike his head, does not have any complaints of pain at this time. He is here for wound evaluation. Differential diagnosis includes but is not limited to fracture, dislocation, skin tear, laceration, soft tissue injury. With an elderly patient with a fall I always consider the possibility of intracranial injury or C-spine injury however with patient's description of the fall I do not believe the mechanism is consistent with these potential injuries. Additionally, patient is approximately 7 hours post injury without any pain, neurologic changes, deficits, etc. I do not believe CT imaging is indicated. Based on these concerns, I ordered x-ray left wrist out of an abundance of caution though I have low suspicion for fracture or bony injury. Wounds were thoroughly cleansed. They are unfortunately thin skin tears not amenable to repair. They are hemostatic. Bacitracin was applied to the wounds with nonstick gauze and additional dressing. X-ray personally interpreted does not demonstrate acute osseous injury, see radiology read for final interpretation. Patient is appropriate for discharge at this time. He was prescribed bacitracin and given instructions on wound care, follow-up, and return precautions for the ER. He indicated understanding and the patient was discharged in stable condition. Critical Care Critical Care Time Critical Care Time: No
[2024-09-19 05:51] VITALS: PULSE 74
--- NOTE | 2024-09-19 05:55 | PC.WOUNDNOTE ---
PT SOAKING LL ARM IN STERILE WATER/HIBECLENS. BLEEDING IS CONTROLLED, WOUND EDGES APPROXIMATED, NO FOREIGN BODY NOTED. MINIMAL SWELLING TO LEFT WRIST, 2+ RADIAL PULSES LUIS EDUARDO, + BRISK CAP REFILL NOTED
[2024-09-19] MEDS: BACITRACIN ZINC OINT 30GM TUBE TP (06:01)
--- NOTE | 2024-09-19 06:05 | PC.NURSE ---
xray done at bedside
[2024-09-19 06:16] VITALS: BP 174/71; PULSE 64; RESP 18; TEMP 36.7; O2SAT 100
== END 2024-09-19 06:21 | disposition home or self-care (01) ==
PROVIDERS: Emergency Provider Emergency Medicine; PCP Emergency Medicine
DX: S51.812A Laceration without foreign body of left forearm, initial encounter (principal); M79.602 Pain in left arm; W01.0XXA Fall on same level from slipping, tripping and stumbling without subsequent striking against object, initial encounter; Y93.89 Activity, other specified; Y92.009 Unspecified place in unspecified non-institutional (private) residence as the place of occurrence of the external cause
CPT/HCPCS: 73110; 99283

== ENCOUNTER 2024-12-13 08:40 | Emergency (ER) | payer MEDICARE, SELFPAY ==
[2024-12-13 08:50] VITALS: BP 152/67; PULSE 75; RESP 18; TEMP 36.9; O2SAT 99; BMI 29.3
--- NOTE | 2024-12-13 09:02 | XR_ITS ---
PROCEDURE INFORMATION: Exam: XR Right Foot Exam date and time: 12/13/2024 9:02 AM Age: 74 years old Clinical indication: Injury or trauma; Fall; Swelling (edema); Ankle and foot; Right; Additional info: Inversion inj, swelling dorsal/lateral midfoot TECHNIQUE: Imaging protocol: Radiologic exam of the right foot. Views: 3 or more views. COMPARISON: CR XR ANKLE RT MIN 3V 12/13/2024 8:59 AM FINDINGS: Bones/joints: Cortical offset in the medial cuneiform may represent a fracture, likely old. Soft tissues: Normal. IMPRESSION: Cortical offset in the medial cuneiform may represent a fracture, likely old. Correlate for site of tenderness.
--- NOTE | 2024-12-13 09:02 | XR_ITS ---
PROCEDURE INFORMATION: Exam: XR Right Ankle Exam date and time: 12/13/2024 8:59 AM Age: 74 years old Clinical indication: Injury or trauma; Fall; Sprain or strain and swelling (edema); Ankle and foot; Right; Additional info: Inversion inj, swelling dorsal/lateral midfoot TECHNIQUE: Imaging protocol: Radiologic exam of the right ankle. Views: 3 or more views. COMPARISON: CR XR ANKLE RT MIN 3V 12/13/2024 8:59 AM FINDINGS: Bones/joints: Normal. Soft tissues: Normal. IMPRESSION: No acute findings.
--- NOTE | 2024-12-13 09:05 | HMH.EDGENADL ---
Discharge Plan Disposition Patient Disposition: Home, Self-Care Chief Complaint: Extremity Injury, Lower Prescriptions Prescriptions: No Action gabapentin 800 mg tablet 800 mg PO TID 30 Days Qty: 90 Patient Comments: carvedilol 12.5 mg tablet 12.5 mg PO BID 90 Days Qty: 180 Patient Comments: atorvastatin 80 mg tablet 80 mg PO DAILY 90 Days Qty: 90 Patient Comments: pantoprazole 40 mg tablet,delayed release (DR/EC) 40 mg PO DAILY 90 Days Qty: 90 Patient Comments: take 1 tablet by mouth once daily clopidogrel 75 mg tablet 75 mg PO DAILY 90 Days Qty: 90 Patient Comments: take 1 tablet by mouth once daily aspirin 81 mg Tablet,Delayed Release (Dr/Ec) 81 mg PO DAILY carbidopa-levodopa 25-100 mg tablet extended release 1 tab PO BID Patient Comments: TAKE 1 TABLET BY MOUTH TWICE DAILY temazepam 30 mg capsule 30 mg PO HS PRN (Reason: Sleep) Patient Comments: TAKE 1 CAPSULE BY MOUTH AT NIGHT NEEDED FOR SLEEP bacitracin zinc 500 unit/gram ointment 1 applic topical BID Qty: 28 0RF Referrals Follow up/Referrals: Alexis Vallejo MD [Primary Care Provider] - See instructions Activity Restrictions/Add. Instructions Additional Instructions/Restrictions: Call your family doctor to establish care for this visit to the emergency department and schedule follow-up within 48 hours to ensure improvement. If you have any worsening of your condition or any other concerning signs or symptoms, return to the emergency department or your primary care doctor for further evaluation. Take Tylenol 1000 mg every 6 hours (4 times daily) and ibuprofen 400 mg every 6 hours (4 times daily) as needed with food and water to prevent GI upset and kidney damage. Clinical Impressions Clinical Impression: Right foot sprain Qualifiers: Encounter type: initial encounter Qualified Code(s): S93.601A - Unspecified sprain of right foot, initial encounter Print Language Print Language: Persian Discharge ED Provider: Bao Jenkins General Adult HPI General Chief complaint: Extremity Injury, Lower Stated complaint: AO-12/12-Fall, Pain and swelling R ankle Time Seen by Provider: 12/13/24 08:42 Mode of Arrival: Ambulatory Source of Information: Patient Description of Symptoms (Recalled from ER Triage Doc. by RN): patient states yesterday he was moving when he slipped and fell on some dirt on the side walk he twisted his right ankle and bit his bottom lip. he now has pain in his right ankle that is 10/10 History of Present Illness HPI narrative: Please note that above description of symptoms, in this electronic medical record under categorization of recalled from ER triage doctor by RN are reflective of an initial nursing assessment, however, is not reflective of my full history and physical exam that was personally taken and clarified. Consequentially, this preceding description of symptoms, which may include the patient's categorized chief complaint in the EMR, do not reflect my personal clinical impression, and the ultimate description of history of present illness and patient stated complaints should be deferred to this section of the note. Unless stated otherwise or congruent with this section of the note, additional signs, symptoms, or incongruence should be interpreted as inaccurate with my clinical impression. Related Data Home Medications ?Medication ?Instructions ?Recorded ?Confirmed atorvastatin 80 mg tablet 80 mg PO DAILY 90 days ##90 11/03/17 09/07/24 carvedilol 12.5 mg tablet 12.5 mg PO BID 90 days ##180 11/03/17 09/07/24 clopidogrel 75 mg tablet 75 mg PO DAILY 90 days ##90 11/03/17 09/07/24 gabapentin 800 mg tablet 800 mg PO TID 30 days ##90 11/03/17 09/07/24 pantoprazole 40 mg tablet,delayed 40 mg PO DAILY 90 days ##90 11/03/17 09/07/24 release carbidopa ER 25 mg-levodopa 100 mg 1 tab PO BID 11/17/23 09/07/24 tablet,extended release temazepam 30 mg capsule 30 mg PO HS PRN Sleep 11/17/23 09/07/24 aspirin 81 mg tablet,delayed 81 mg PO DAILY 09/07/24 09/07/24 release Previous Rx's ?Medication ?Instructions ?Recorded bacitracin zinc 500 unit/gram 1 applic topical BID #28 grams 09/19/24 topical ointment Allergies Allergy/AdvReac Type Severity Reaction Status Date / Time No Known Drug Allergies Allergy Unknown Unknown Verified 12/13/24 09:00 (NKDA) allergy reaction [facility] Disclaimer: The information contained in this section may have been updated after the patient was seen, as this information can be updated by other users. 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 Have you lived/traveled outside US in past 30 days?: No Contact w/someone who lives/traveled outside US past 30 days?: No Exposure to someone with infectious disease in past 14 days?: No Do you have a fever (greater than 100.4 F or 38 C)?: No Have you tested positive for COVID-19: No Exposed to someone with COVID-19 in past 14 days?: No Do you have a sore throat?: No Do you have a cough?: No Do you have any weakness?: No Do you have any diarrhea?: No Are you experiencing any unusual bleeding?: No Do you have any muscle aches/pain?: No Do you have any abdominal pain?: No Are you experiencing loss of taste or smell?: No Other Medical History Have you received the Flu Vaccine for this season: Yes Have you received the Pneumonia Vaccine: Yes ROS Obtained: Yes All systems reviewed & no additional complaints except as documented Physical Exam General General appearance: alert Head Head exam: atraumatic and normocephalic Eye Eye exam: Present normal appearance, PERRL and EOMI Neck Neck exam: Present normal inspection, full ROM and trachea midline Respiratory Respiratory exam: Absent respiratory distress, wheezes, stridor, accessory muscle use or prolonged expiratory phase Cardiovascular Cardiovascular exam: Present other (Pulses equal symmetric in upper and lower extremities) Abdominal Exam Abdominal exam: Present soft; Absent distention, tenderness or pulsatile mass Extremities Exam Extremities exam: Present other (Tenderness lateral/dorsal aspect of midfoot on the right. Neurovascular intact, no outward signs of abnormality); Absent edema Neurological Exam Neurological exam: Present alert, oriented X3 and CN II-XII intact; Absent motor sensory deficit Skin Skin exam: Present warm and dry; Absent diaphoresis or erythema Medical Decision Making Medical Records Medical records reviewed: Yes I reviewed the patient's medical records. Screening: Per USPSTF and CDC recommendations, given the prevalence of disease in our region, it is our hospital?s policy to screen for HIV and viral Hepatitis for all patients aged 18 and over and those with ongoing risk factors. Jose Rafael Inquiry Pt receiving controlled substance: No Jose Rafael was queried for this patient: No Vital Signs: 12/13/24 08:50 Temperature 98.4 F Temperature Source Oral Pulse Rate [Right Radial] 75 Respiratory Rate 18 Blood Pressure [Right Arm] 152/67 H Blood Pressure Mean [Right Arm] 95 Blood Pressure Source [Right Arm] Automatic Cuff Blood Pressure Position [Right Arm] Supine 02 Sat by Pulse Oximetry 99 Oxygen Delivery Method Room Air Orders (Tests/Meds): ORDERS Category Date Time Status Ankle XR -Right minimum 3 Views [XR ankle RT min 3V] Exams 12/13/24 09:02 Taken Stat Foot XR right minimum 3 views [XR foot RT min 3V] Stat Exams 12/13/24 09:02 Taken Medical Decision Narrative: 74-year-old male no relevant medical history presenting with inversion injury of his right lower extremity. He states that he was walking across uneven ground yesterday, 12/12 and twisted his ankle. Did not sustain any other injuries. Able to bear weight, but with significant pain. States its mild in intensity with not touching it or bearing weight, moderate to severe in intensity when bearing weight or using the foot or ankle. Has not tried anything or noticed anything that makes it any better other than resting it. No tenderness in his hip, knee, lower leg, or any other complaints. History obtained the patient. On arrival, very clinically well. Tenderness lateral/dorsal aspect of midfoot on the right. Neurovascular intact, no outward signs of abnormality. Range of motion is intact, although tender on dorsiflexion. Differential includes fracture, sprain, strain, among others. Ice pack applied. X-rays obtained. On independent interpretation, no bony abnormality. Because patient at baseline without signs or symptoms of clinical decompensation, deemed appropriate for discharge. Results were relayed to patient who voiced understanding and were agreeable to outpatient management and follow up. I discussed my clinical impression with patient and answered all questions. At this time, the evidence for any other entities in the differential is insufficient to warrant any further testing or ED observation. This was explained as well. Advisory was given that persistent or worsening symptoms require further evaluation. I confirmed the understanding of this discussion. Artistic Director disclaimer Much of this encounter note is an electronic sap portal architect spoken language to printed text. Electronic sap portal architect of the spoken language may permit errors. Although I have reviewed the note, some errors may still exist. Critical Care Critical Care Time Critical Care Time: No
[2024-12-13 09:39] VITALS: BP 142/59; PULSE 72; RESP 15; TEMP 36.7; O2SAT 100
== END 2024-12-13 09:40 | disposition home or self-care (01) ==
PROVIDERS: Emergency Provider Emergency Medicine; PCP Family Medicine
DX: M25.571 Pain in right ankle and joints of right foot (principal); S93.601A Unspecified sprain of right foot, initial encounter; W01.10XA Fall on same level from slipping, tripping and stumbling with subsequent striking against unspecified object, initial encounter
CPT/HCPCS: 73610; 73630; 99284